=== PATIENT | male | born 1965 | race African-American/Black ===

== ENCOUNTER 2016-11-12 10:36 | Inpatient (IN) | payer OTHER ==
[2016-11-12 11:24] VITALS: BMI 27.3
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
[2016-11-12] MEDS ORDERED: P-EPHED 60MG/TRIPROLIDI 2.5MG TABLET PO PRN (15:10)
[2016-11-12] MEDS ORDERED: MAGNESIUM HYDROX 2400MG/30ML ORAL SUSPENSION 30 ML CUP PO PRN (15:10)
[2016-11-12] MEDS ORDERED: MAGNESIUM CITRATE 300 ML BOTTLE PO PRN (15:10)
[2016-11-12] MEDS ORDERED: MAG HYDROX/AL HYDROX/SIMETH 30 ML UNIT-DOSE CUP PO PRN (15:10)
[2016-11-12] MEDS ORDERED: MENTHOL/PHENOL 1 EACH UD MM PRN (15:10)
[2016-11-12] MEDS ORDERED: LOPERAMIDE HCL 2 MG CAPSULE PO PRN (15:10)
[2016-11-12] MEDS ORDERED: NICOTINE POLACRILEX 2 MG GUM BC PRN (15:10)
[2016-11-12] MEDS ORDERED: guaiFENesin/D-METHORPHAN HB 10 ML UNIT-DOSE CUPS PO PRN (15:10)
[2016-11-12] MEDS ORDERED: chlordiazePOXIDE HCL 25 MG CAPSULE PO PRN (15:10)
[2016-11-12] MEDS ORDERED: hydrOXYzine PAMOATE 50 MG CAPSULE (FP) PO PRN (15:10)
[2016-11-12] MEDS ORDERED: diphenhydrAMINE HCL 50 MG CAPSULE PO PRN (15:10)
[2016-11-12] MEDS ORDERED: chlordiazePOXIDE HCL 25 MG CAPSULE PO ONE (15:45)
[2016-11-12] MEDS: amLODIPine BESYLATE 10 MG TABLET (FP) PO SCH (16:42)
[2016-11-12] MEDS: BACITRACIN 0.9 GM PACKET TP SCH (16:42)
[2016-11-12] MEDS: chlordiazePOXIDE HCL 25 MG CAPSULE PO SCH ×2 (16:44→22:12)
[2016-11-12 18:33] LABS: URINE APPEARANCE CLEAR; URINE BILIRUBIN NEGATIVE (NEGATIVE); URINE BLOOD NEGATIVE (NEGATIVE); URINE COLOR STRAW; URINE GLUCOSE (UA) 1+ (NEGATIVE); URINE KETONE NEGATIVE (NEGATIVE); URINE LEUK ESTERASE NEGATIVE (NEGATIVE); URINE NITRITE NEGATIVE (NEGATIVE); URINE PROTEIN NEGATIVE (NEGATIVE); URINE UROBILINOGEN NEGATIVE mg/dL (0.2-1.0)
[2016-11-12] MEDS: THIAMINE HCL 100 MG TABLET (FP) PO SCH (22:12)
[2016-11-13] MEDS: chlordiazePOXIDE HCL 25 MG CAPSULE PO SCH ×4 (05:25→22:23)
[2016-11-13] MEDS: PRENATAL VITAMINS W/ FOLIC ACID TABLET (FP) PO SCH (10:14)
[2016-11-13] MEDS: amLODIPine BESYLATE 10 MG TABLET (FP) PO SCH (10:14)
[2016-11-13] MEDS: BACITRACIN 0.9 GM PACKET TP SCH (10:14)
[2016-11-13 10:15] LABS: MCH 30.1 pg (25.7-33.7); MCHC 33.3 g/dl (32.0-35.9); MEAN CELL VOLUME 90.4 fl (80-96); MEAN PLT VOLUME 10.2 fl (7.5-11.1); PLATELET COUNT 146 K/MM3 (134-434); RDW 13.6 % (11.9-15.9); WHITE BLOOD COUNT 4.5 K/mm3 (4.0-10.0)
--- NOTE | 2016-11-13 11:32 | PN ---
[facility] CIWA - CIWA Score Nausea/Vomitin-No Nausea/No Vomiting Muscle Tremors: 3 Anxiety: 5 Agitation: 3 Paroxysmal Sweats: 3 Orientation: 0-Oriented Tacttile Disturbances: 3-Moderate Itch/Numb/Burn Auditory Disturbances: 0-None Visual Disturbances: 2-Mild Sensitivity Headache: 0-None Present CIWA-Ar Total Score: 19 BHS Progress Note (SOAP) Subjective: Sweating, Tremors, Anxious. Objective: PT. A & O X 3, OBSERVED AMBULATING ON UNIT. NO ACUTE DISTRESS. 11/13/16 11:30 Vital Signs Temperature 96.3 F L 11/13/16 09:09 Pulse Rate 65 11/13/16 09:09 Respiratory Rate 18 11/13/16 09:09 Blood Pressure 154/102 11/13/16 09:09 O2 Sat by Pulse Oximetry (%) Laboratory Tests 11/12/16 11/13/16 11/13/16 15:58 07:00 07:00 WBC 4.5 RBC 4.56 Hgb 13.7 Hct 41.3 MCV 90.4 MCH 30.1 MCHC 33.3 RDW 13.6 Plt Count 146 MPV 10.2 Urine Color Straw Urine Appearance Clear Urine pH 7.0 Ur Specific [place] 1.020 Urine Protein Negative Urine Glucose (UA) 1+ H Urine Ketones Negative Urine Blood Negative Urine Nitrite Negative Urine Bilirubin Negative Urine Urobilinogen Negative Ur Leukocyte Esterase Negative RPR Titer Nonreactive LABS NOTED. RESULTS OF CMP AND SICKLE CELL SCREEN PENDING. 11/13/16 11:32 Assessment: 11/13/16 11:30 WITHDRAWAL SYMPTOMS. Plan: CONTINUE DETOX.
[2016-11-13 11:41] LABS: ALBUMIN 3.3 g/dl (3.4-5.0); ANION GAP 8 (8-16); BILIRUBIN,TOTAL 0.2 mg/dL (0.2-1.0); CALCIUM 8.6 mg/dL (8.5-10.1); CO2 30 mmol/L (21-32); CREATININE 1.1 mg/dL (0.7-1.3); GLUCOSE,RANDOM 117 mg/dL (74-106); SGOT/AST 25 U/L (15-37); SGPT/ALT 33 U/L (12-78); TOT PROT 6.3 g/dl (6.4-8.2)
[2016-11-13 11:42] LABS: ALK PHOS 117 U/L (45-117)
[2016-11-13 13:41] LABS: SICKLE CELL SCREEN NEGATIVE (NEGATIVE)
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
--- NOTE | 2016-11-13 18:31 | EKG ---
Test Reason : Blood Pressure : / mmHG Vent. Rate : 053 BPM Atrial Rate : 053 BPM P-R Int : 186 ms QRS Dur : 126 ms QT Int : 452 ms P-R-T Axes : 053 055 036 degrees QTc Int : 424 ms SINUS BRADYCARDIA WITH SINUS ARRHYTHMIA CRBBB ABNORMAL ECG NO PREVIOUS ECGS AVAILABLE REPEAT EKG IF CLINICALLY INDICATED Confirmed by AR MONTEMAYOR MD ([id number]) on 11/13/2016 6:30:44 PM Referred By: Confirmed By:AR MONTEMAYOR MD
[2016-11-13] MEDS: POTASSIUM CHLORIDE ORAL LIQUID 20 MEQ/15 ML PO SCH (22:22)
[2016-11-13] MEDS: THIAMINE HCL 100 MG TABLET (FP) PO SCH (22:23)
[2016-11-13] MEDS: QUEtiapine FUMARATE 100 MG TABLET (FP) PO SCH (22:50)
[2016-11-14] MEDS: chlordiazePOXIDE HCL 25 MG CAPSULE PO SCH ×2 (05:42→10:09)
[2016-11-14] MEDS: amLODIPine BESYLATE 10 MG TABLET (FP) PO SCH (10:09)
[2016-11-14] MEDS: BACITRACIN 0.9 GM PACKET TP SCH (10:09)
[2016-11-14] MEDS: POTASSIUM CHLORIDE ORAL LIQUID 20 MEQ/15 ML PO SCH ×2 (10:09→22:00)
[2016-11-14] MEDS: PRENATAL VITAMINS W/ FOLIC ACID TABLET (FP) PO SCH (10:09)
--- NOTE | 2016-11-14 11:47 | PN ---
[facility] CIWA - CIWA Score Nausea/Vomitin-No Nausea/No Vomiting Muscle Tremors: 4-Moderate,w/Arms Extend Anxiety: 3 Agitation: 4-Moderately Restless Paroxysmal Sweats: 1-Minimal Palms Moist Orientation: 0-Oriented Tacttile Disturbances: 3-Moderate Itch/Numb/Burn Auditory Disturbances: 0-None Visual Disturbances: 0-None Headache: 0-None Present CIWA-Ar Total Score: 15 S Progress Note (SOAP) Subjective: ANXIETY,IRRITABILITY, RESTLESS,AGITATIONS. Objective: 11/14/16 11:45 Vital Signs Temperature 96.4 F L 11/14/16 09:43 Pulse Rate 72 11/14/16 09:43 Respiratory Rate 18 11/14/16 09:43 Blood Pressure 105/104 11/14/16 09:43 O2 Sat by Pulse Oximetry (%) Laboratory Last Values WBC 4.5 K/mm3 (4.0-10.0) 11/13/16 07:00 RBC 4.56 M/mm3 (4.00-5.60) 11/13/16 07:00 Hgb 13.7 GM/dL (11.7-16.9) 11/13/16 07:00 Hct 41.3 % (35.4-49) 11/13/16 07:00 MCV 90.4 fl (80-96) 11/13/16 07:00 MCH 30.1 pg (25.7-33.7) 11/13/16 07:00 MCHC 33.3 g/dl (32.0-35.9) 11/13/16 07:00 RDW 13.6 % (11.9-15.9) 11/13/16 07:00 Plt Count 146 K/MM3 (134-434) 11/13/16 07:00 MPV 10.2 fl (7.5-11.1) 11/13/16 07:00 Sickle Cell Screen Negative (NEGATIVE) 11/13/16 07:00 Sodium 141 mmol/L (136-145) 11/13/16 07:00 Potassium 3.4 mmol/L (3.5-5.1) L 11/13/16 07:00 Chloride 103 mmol/L (98-107) 11/13/16 07:00 Carbon Dioxide 30 mmol/L (21-32) D 11/13/16 07:00 Anion Gap 8 (8-16) 11/13/16 07:00 BUN 15 mg/dL (7-18) 11/13/16 07:00 Creatinine 1.1 mg/dL (0.7-1.3) 11/13/16 07:00 Creat Clearance w eGFR > 60 (>60) 11/13/16 07:00 Random Glucose 117 mg/dL (74-106) H 11/13/16 07:00 Calcium 8.6 mg/dL (8.5-10.1) 11/13/16 07:00 Total Bilirubin 0.2 mg/dL (0.2-1.0) D 11/13/16 07:00 AST 25 U/L (15-37) 11/13/16 07:00 ALT 33 U/L (12-78) D 11/13/16 07:00 Alkaline Phosphatase 117 U/L (45-117) 11/13/16 07:00 Total Protein 6.3 g/dl (6.4-8.2) L 11/13/16 07:00 Albumin 3.3 g/dl (3.4-5.0) L 11/13/16 07:00 Urine Color Straw 11/12/16 15:58 Urine Appearance Clear 11/12/16 15:58 Urine pH 7.0 (5.0-8.0) 11/12/16 15:58 Ur Specific [place] 1.020 (1.005-1.025) 11/12/16 15:58 Urine Protein Negative (NEGATIVE) 11/12/16 15:58 Urine Glucose (UA) 1+ (NEGATIVE) H 11/12/16 15:58 Urine Ketones Negative (NEGATIVE) 11/12/16 15:58 Urine Blood Negative (NEGATIVE) 11/12/16 15:58 Urine Nitrite Negative (NEGATIVE) 11/12/16 15:58 Urine Bilirubin Negative (NEGATIVE) 11/12/16 15:58 Urine Urobilinogen Negative mg/dL (0.2-1.0) 11/12/16 15:58 Ur Leukocyte Esterase Negative (NEGATIVE) 11/12/16 15:58 RPR Titer Nonreactive (NONREACTIVE) 11/13/16 07:00 K+ =3.4 Assessment: 11/14/16 11:45 WITHDRAWAL SX BORDERLINE HYPOKALEMIA Plan: CONTINUE DETOX ON [facility].
[2016-11-14] MEDS: chlordiazePOXIDE 5 MG CAPSULE PO SCH ×2 (16:58→22:00)
[2016-11-14] MEDS: THIAMINE HCL 100 MG TABLET (FP) PO SCH (22:00)
[2016-11-14] MEDS ORDERED: QUEtiapine FUMARATE 100 MG TABLET (FP) PO SCH (22:00)
[2016-11-14] MEDS: QUEtiapine FUMARATE 100 MG TABLET (FP) PO SCH (22:00)
[2016-11-15] MEDS: chlordiazePOXIDE 5 MG CAPSULE PO SCH ×2 (06:25→10:15)
[2016-11-15] MEDS: BACITRACIN 0.9 GM PACKET TP SCH (10:14)
[2016-11-15] MEDS: POTASSIUM CHLORIDE ORAL LIQUID 20 MEQ/15 ML PO SCH (10:15)
[2016-11-15] MEDS: amLODIPine BESYLATE 10 MG TABLET (FP) PO SCH (10:15)
[2016-11-15] MEDS: PRENATAL VITAMINS W/ FOLIC ACID TABLET (FP) PO SCH (10:15)
--- NOTE | 2016-11-15 12:21 | PN ---
BHS Progress Note (SOAP) Subjective: Anxious, H/A, Interrupted Seep, Sweating. Objective: PT. A & O X 2 (DISORIENTED ABOUT DAY / DATE). PT. OBSERVED AMBULATING ON UNIT. NO ACUTE DISTRESS. 11/15/16 12:19 Vital Signs Temperature 96.2 F L 11/15/16 09:45 Pulse Rate 75 11/15/16 09:45 Respiratory Rate 18 11/15/16 09:45 Blood Pressure 139/98 11/15/16 09:45 O2 Sat by Pulse Oximetry (%) Laboratory Tests 11/12/16 11/13/16 11/13/16 15:58 07:00 07:00 WBC 4.5 RBC 4.56 Hgb 13.7 Hct 41.3 MCV 90.4 MCH 30.1 MCHC 33.3 RDW 13.6 Plt Count 146 MPV 10.2 Sickle Cell Screen Negative Sodium 141 Potassium 3.4 L Chloride 103 Carbon Dioxide 30 D Anion Gap 8 BUN 15 Creatinine 1.1 Creat Clearance w eGFR > 60 Random Glucose 117 H Calcium 8.6 Total Bilirubin 0.2 D AST 25 ALT 33 D Alkaline Phosphatase 117 Total Protein 6.3 L Albumin 3.3 L Urine Color Straw Urine Appearance Clear Urine pH 7.0 Ur Specific [place] 1.020 Urine Protein Negative Urine Glucose (UA) 1+ H Urine Ketones Negative Urine Blood Negative Urine Nitrite Negative Urine Bilirubin Negative Urine Urobilinogen Negative Ur Leukocyte Esterase Negative RPR Titer 11/13/16 07:00 WBC RBC Hgb Hct MCV MCH MCHC RDW Plt Count MPV Sickle Cell Screen Sodium Potassium Chloride Carbon Dioxide Anion Gap BUN Creatinine Creat Clearance w eGFR Random Glucose Calcium Total Bilirubin AST ALT Alkaline Phosphatase Total Protein Albumin Urine Color Urine Appearance Urine pH Ur Specific [place] Urine Protein Urine Glucose (UA) Urine Ketones Urine Blood Urine Nitrite Urine Bilirubin Urine Urobilinogen Ur Leukocyte Esterase RPR Titer Nonreactive LABS NOTED. Assessment: 11/15/16 12:19 WITHDRAWAL SYMPTOMS. Plan: CONTINUE DETOX.
--- NOTE | 2016-11-15 13:03 | PN ---
BHS Progress Note Note: Clonidine, 0.1 mg PO X 1 ordered for elevated BP and for Detox symptoms. Stacia Zavala, [employer]
[2016-11-15] MEDS ORDERED: cloNIDine HCL 0.1 MG TABLET PO ONE (13:30)
[2016-11-15] MEDS: chlordiazePOXIDE HCL 10 MG CAPSULE PO SCH ×2 (18:15→22:43)
[2016-11-15] MEDS: THIAMINE HCL 100 MG TABLET (FP) PO SCH (22:43)
[2016-11-15] MEDS: QUEtiapine FUMARATE 100 MG TABLET (FP) PO SCH (22:43)
[2016-11-16] MEDS: chlordiazePOXIDE HCL 10 MG CAPSULE PO SCH (06:07)
[2016-11-16 11:09] VITALS: BP 155/98; PULSE 84; TEMP 97.6
--- NOTE | 2016-11-16 13:50 | DS ---
[facility] Detox Discharge Summary Admission Date: 11/12/16 Discharge Date: 11/16/16 - History Present History: Alcohol Dependence, Cocaine Dependence, Pcp Dependence Additional Comments: PATIENT GOING HOME, DECLINES AFTERCARE REFERRAL AT THIS TIME. PATIENT ADVISED TO CONSIDER LOCAL 12-STEP / AA/ NA OUTPATIENT SUPPORT GROUPS FOR FOLLOW-UP AFTERCARE. PATIENT WAS DISCHARGED FROM DETOX UNIT IN STABLE MEDICAL CONDITION. Pertinent Past History: HTN, Injury to Big toe of Left Foot, Depression, Bipolar Disorder, Insomnia. - Physical Exam Results Vital Signs: Vital Signs Temperature 97.6 F 11/16/16 11:08 Pulse Rate 84 11/16/16 11:08 Respiratory Rate 20 11/16/16 11:08 Blood Pressure 155/98 11/16/16 11:08 O2 Sat by Pulse Oximetry (%) Pertinent Admission Physical Exam Findings: WITHDRAWAL SYMPTOMS. Laboratory Tests 11/12/16 11/13/16 11/13/16 15:58 07:00 07:00 WBC 4.5 RBC 4.56 Hgb 13.7 Hct 41.3 MCV 90.4 MCH 30.1 MCHC 33.3 RDW 13.6 Plt Count 146 MPV 10.2 Sickle Cell Screen Negative Sodium 141 Potassium 3.4 L Chloride 103 Carbon Dioxide 30 D Anion Gap 8 BUN 15 Creatinine 1.1 Creat Clearance w eGFR > 60 Random Glucose 117 H Calcium 8.6 Total Bilirubin 0.2 D AST 25 ALT 33 D Alkaline Phosphatase 117 Total Protein 6.3 L Albumin 3.3 L Urine Color Straw Urine Appearance Clear Urine pH 7.0 Ur Specific [place] 1.020 Urine Protein Negative Urine Glucose (UA) 1+ H Urine Ketones Negative Urine Blood Negative Urine Nitrite Negative Urine Bilirubin Negative Urine Urobilinogen Negative Ur Leukocyte Esterase Negative RPR Titer 11/13/16 07:00 WBC RBC Hgb Hct MCV MCH MCHC RDW Plt Count MPV Sickle Cell Screen Sodium Potassium Chloride Carbon Dioxide Anion Gap BUN Creatinine Creat Clearance w eGFR Random Glucose Calcium Total Bilirubin AST ALT Alkaline Phosphatase Total Protein Albumin Urine Color Urine Appearance Urine pH Ur Specific [place] Urine Protein Urine Glucose (UA) Urine Ketones Urine Blood Urine Nitrite Urine Bilirubin Urine Urobilinogen Ur Leukocyte Esterase RPR Titer Nonreactive LABS NOTED. - Treatment Hospital Course: Detox Protocol Followed, Detoxed Safely, Responded well, Discharged Condition Good Patient has Accepted a Rehab Referral to: [facility]. ADVISED TO CONSIDER 12- STEP/NA/AA SUPPORT GROUP FOR AFTERCARE - Medication Discharge Medications: Ambulatory Orders Quetiapine Fumarate [Seroquel] 100 tab PO HS #30 tablet 11/25/15 Amlodipine Besylate [Norvasc -] 10 mg PO DAILY #30 tablet 11/16/16 - Diagnosis (1) Alcohol dependence with uncomplicated withdrawal Status: Acute (2) Hypertension Status: Chronic Qualifiers: Hypertension type: essential hypertension Qualified Code(s): I10 - Essential (primary) hypertension (3) Nicotine dependence Status: Chronic Qualifiers: Nicotine product type: cigarettes Substance use status: uncomplicated Qualified Code(s): F17.210 - Nicotine dependence, cigarettes, uncomplicated (4) PCP abuse Status: Acute (5) Injury of left great toe Status: Acute Qualifiers: Encounter type: sequela Qualified Code(s): S99.922S - Unspecified injury of left foot, sequela (6) History of depression Status: Chronic (7) History of bipolar disorder Status: Chronic (8) Cocaine dependence, uncomplicated Status: Acute (9) Drug-induced mood disorder Status: Acute (10) Insomnia Status: Acute Qualifiers: Insomnia type: unspecified Qualified Code(s): G47.00 - Insomnia, unspecified - AMA Did Patient Leave Against Medical Advice: No
== END 2016-11-16 11:12 | disposition home or self-care (01) | DRG 774 ==
LOC: YASAS 10:36 → Y3N 15:29
PROVIDERS: ADMIT Internal Medicine Addiction Medicine; ATTEND Internal Medicine Addiction Medicine
PROC: HZ2ZZZZ Detoxification Services for Substance Abuse Treatment (ICD-10-PCS; principal; 2016-11-12)
DX: F10.230 Alcohol dependence with withdrawal, uncomplicated (principal); F14.20 Cocaine dependence, uncomplicated; F16.10 Hallucinogen abuse, uncomplicated; F17.210 Nicotine dependence, cigarettes, uncomplicated; F19.24 Other psychoactive substance dependence with psychoactive substance-induced mood disorder; F31.9 Bipolar disorder, unspecified; E87.6 Hypokalemia; G47.00 Insomnia, unspecified; I10 Essential (primary) hypertension; Z88.6 Allergy status to analgesic agent; S99.922S Unspecified injury of left foot, sequela; X58.XXXS Exposure to other specified factors, sequela
CPT/HCPCS: 36415; 71010-TC; 80053; 81003; 85027; 85660; 86593; 93005; 93010

== ENCOUNTER 2017-04-05 18:18 | Inpatient (IN) | payer OTHER ==
[2017-04-05 19:26] VITALS: BMI 26.9
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
[2017-04-05] MEDS ORDERED: MAG HYDROX/AL HYDROX/SIMETH 30 ML UNIT-DOSE CUP PO PRN (20:44)
[2017-04-05] MEDS ORDERED: hydrOXYzine PAMOATE 50 MG CAPSULE (FP) PO PRN (20:44)
[2017-04-05] MEDS ORDERED: P-EPHED 60MG/TRIPROLIDI 2.5MG TABLET PO PRN (20:44)
[2017-04-05] MEDS ORDERED: MAGNESIUM CITRATE 300 ML BOTTLE PO PRN (20:44)
[2017-04-05] MEDS ORDERED: MENTHOL/PHENOL 1 EACH UD MM PRN (20:44)
[2017-04-05] MEDS ORDERED: guaiFENesin/D-METHORPHAN HB 10 ML UNIT-DOSE CUPS PO PRN (20:44)
[2017-04-05] MEDS ORDERED: MAGNESIUM HYDROX 2400MG/30ML ORAL SUSPENSION 30 ML CUP PO PRN (20:44)
[2017-04-05] MEDS ORDERED: chlordiazePOXIDE HCL 25 MG CAPSULE PO PRN (20:44)
[2017-04-05] MEDS ORDERED: LOPERAMIDE HCL 2 MG CAPSULE PO PRN (20:44)
[2017-04-05] MEDS ORDERED: chlordiazePOXIDE HCL 25 MG CAPSULE PO ONE (21:30)
[2017-04-05] MEDS: SILVER SULFADIAZINE 1% TOP CREAM 50 GM JAR TP SCH (23:07)
[2017-04-05] MEDS: THIAMINE HCL 100 MG TABLET (FP) PO SCH (23:08)
[2017-04-05] MEDS: chlordiazePOXIDE HCL 25 MG CAPSULE PO SCH (23:09)
[2017-04-05 23:23] LABS: URINE APPEARANCE CLEAR; URINE BILIRUBIN NEGATIVE (NEGATIVE); URINE BLOOD NEGATIVE (NEGATIVE); URINE COLOR YELLOW; URINE GLUCOSE (UA) NEGATIVE (NEGATIVE); URINE KETONE NEGATIVE (NEGATIVE); URINE LEUK ESTERASE NEGATIVE (NEGATIVE); URINE NITRITE NEGATIVE (NEGATIVE)
[2017-04-05 23:24] LABS: URINE PROTEIN 1+ (NEGATIVE)
[2017-04-05 23:43] LABS: EPI CELLS RARE /HPF (FEW); URINE BACTERIA RARE /hpf (NONE SEEN); URINE MUCUS MANY
[2017-04-06] MEDS: chlordiazePOXIDE HCL 25 MG CAPSULE PO SCH ×4 (06:05→22:46)
[2017-04-06 10:03] LABS: HEMATOCRIT 38.7 % (35.4-49); HEMOGLOBIN 12.5 GM/dL (11.7-16.9); MCH 29.7 pg (25.7-33.7); MCHC 32.3 g/dl (32.0-35.9); MEAN PLT VOLUME 9.1 fl (7.5-11.1); PLATELET COUNT 170 K/MM3 (134-434); RBC 4.21 M/mm3 (4.00-5.60); RDW 15.4 % (11.9-15.9); WHITE BLOOD COUNT 5.6 K/mm3 (4.0-10.0)
[2017-04-06 10:11] LABS: CHLORIDE 107 mmol/L (98-107); POTASSIUM 3.5 mmol/L (3.5-5.1); SODIUM 141 mmol/L (136-145)
[2017-04-06 10:17] LABS: ALK PHOS 107 U/L (45-117); ANION GAP 8 (8-16); BILIRUBIN,TOTAL 0.4 mg/dL (0.2-1.0); BLOOD UREA NITROGEN 15 mg/dL (7-18); CO2 26 mmol/L (21-32); CREATININE 1.2 mg/dL (0.7-1.3); GLUCOSE,RANDOM 92 mg/dL (74-106); SGOT/AST 23 U/L (15-37); SGPT/ALT 22 U/L (12-78)
[2017-04-06] MEDS: PRENATAL VITAMINS W/ FOLIC ACID TABLET (FP) PO SCH (10:30)
[2017-04-06] MEDS: amLODIPine BESYLATE 10 MG TABLET (FP) PO SCH (10:30)
[2017-04-06] MEDS: SILVER SULFADIAZINE 1% TOP CREAM 50 GM JAR TP SCH ×2 (10:48→22:47)
[2017-04-06] MEDS ORDERED: ARTIFICIAL TEARS (POLYVINYL ALCOHOL 1.4%) OPTH DROPS OD PRN (11:20)
--- NOTE | 2017-04-06 12:26 | EKG ---
Test Reason : Blood Pressure : / mmHG Vent. Rate : 087 BPM Atrial Rate : 087 BPM P-R Int : 152 ms QRS Dur : 132 ms QT Int : 388 ms P-R-T Axes : 058 058 040 degrees QTc Int : 466 ms NORMAL SINUS RHYTHM RIGHT BUNDLE BRANCH BLOCK ABNORMAL ECG Confirmed by MD YENIFER, OMAR ([id number]) on 04/06/2017 12:26:00 PM Referred By: Confirmed By:OMAR STREET MD
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
[2017-04-06] MEDS: NAPHAZOLINE/PHENIRAMINE OPHTHALMIC 15 ML BOTTLE OD SCH ×3 (15:11→22:47)
[2017-04-06] MEDS ORDERED: QUEtiapine FUMARATE 100 MG TABLET (FP) PO SCH (22:00)
[2017-04-06] MEDS: THIAMINE HCL 100 MG TABLET (FP) PO SCH (22:46)
[2017-04-06 23:05] VITALS: TEMP 97.2
[2017-04-07] MEDS: chlordiazePOXIDE HCL 25 MG CAPSULE PO SCH ×2 (05:41→10:45)
[2017-04-07 09:56] VITALS: BP 151/98; PULSE 62
[2017-04-07] MEDS: PRENATAL VITAMINS W/ FOLIC ACID TABLET (FP) PO SCH (10:45)
[2017-04-07] MEDS: SILVER SULFADIAZINE 1% TOP CREAM 50 GM JAR TP SCH (10:45)
[2017-04-07] MEDS: amLODIPine BESYLATE 10 MG TABLET (FP) PO SCH (10:45)
[2017-04-07] MEDS: NAPHAZOLINE/PHENIRAMINE OPHTHALMIC 15 ML BOTTLE OD SCH (10:46)
--- NOTE | 2017-04-07 14:34 | DS ---
[facility] Detox Discharge Summary Admission Date: 04/05/17 Discharge Date: 04/07/17 - History Present History: Alcohol Dependence, Cocaine Dependence, Pcp Dependence Additional Comments: UA shows 1 + protein: encouraged to drink lots of water, repeat UA Pertinent Past History: HTN PPD Positive - Physical Exam Results Vital Signs: Vital Signs Temperature 97.2 F L 04/07/17 09:56 Pulse Rate 62 04/07/17 09:56 Respiratory Rate 16 04/07/17 09:56 Blood Pressure 151/98 04/07/17 09:56 O2 Sat by Pulse Oximetry (%) Pertinent Admission Physical Exam Findings: Withdrawal symptoms Laboratory Tests 04/05/17 04/06/17 04/06/17 23:13 07:40 07:40 WBC 5.6 RBC 4.21 Hgb 12.5 Hct 38.7 MCV 92.0 MCH 29.7 MCHC 32.3 RDW 15.4 Plt Count 170 D MPV 9.1 Sodium 141 Potassium 3.5 Chloride 107 Carbon Dioxide 26 Anion Gap 8 BUN 15 D Creatinine 1.2 Creat Clearance w eGFR > 60 Random Glucose 92 Calcium 8.0 L Total Bilirubin 0.4 AST 23 ALT 22 Alkaline Phosphatase 107 Total Protein 6.0 L Albumin 3.0 L Urine Color Yellow Urine Appearance Clear Urine pH 5.0 Ur Specific [place] 1.028 Urine Protein 1+ H Urine Glucose (UA) Negative Urine Ketones Negative Urine Blood Negative Urine Nitrite Negative Urine Bilirubin Negative Urine Urobilinogen 2.0 Ur Leukocyte Esterase Negative Urine WBC (Auto) 1 Urine RBC (Auto) <1 Ur Epithelial Cells Rare Urine Bacteria Rare Urine Mucus Many RPR Titer 04/06/17 07:40 WBC RBC Hgb Hct MCV MCH MCHC RDW Plt Count MPV Sodium Potassium Chloride Carbon Dioxide Anion Gap BUN Creatinine Creat Clearance w eGFR Random Glucose Calcium Total Bilirubin AST ALT Alkaline Phosphatase Total Protein Albumin Urine Color Urine Appearance Urine pH Ur Specific [place] Urine Protein Urine Glucose (UA) Urine Ketones Urine Blood Urine Nitrite Urine Bilirubin Urine Urobilinogen Ur Leukocyte Esterase Urine WBC (Auto) Urine RBC (Auto) Ur Epithelial Cells Urine Bacteria Urine Mucus RPR Titer Nonreactive Labs noted: UA shows 1+ protein - Medication Discharge Medications: Ambulatory Orders Amlodipine Besylate [Norvasc -] 10 mg PO DAILY #30 tablet 11/16/16 Quetiapine Fumarate [Seroquel] 100 mg PO HS #30 tablet 01/12/17 Quetiapine Fumarate [Seroquel] 100 tab PO HS #30 tablet 01/13/17 Quetiapine Fumarate [Seroquel] 100 mg PO HS #30 tablet 04/06/17 - Diagnosis (1) Cocaine dependence Status: Chronic (2) Nicotine dependence Status: Chronic Qualifiers: Nicotine product type: cigarettes Substance use status: in withdrawal Qualified Code(s): F17.213 - Nicotine dependence, cigarettes, with withdrawal (3) Phencyclidine dependence Status: Acute (4) Substance induced mood disorder Status: Acute (5) Alcohol dependence with uncomplicated withdrawal Status: Acute (6) Essential (primary) hypertension Status: Chronic (7) History of bipolar disorder Status: Chronic (8) PPD positive, treated Status: Chronic (9) Proteinuria Status: Acute - AMA Did Patient Leave Against Medical Advice: Yes (F/U with PCP within 3 days, call 911 stat if feels sick)
[2017-04-07] MEDS ORDERED: chlordiazePOXIDE 5 MG CAPSULE PO SCH (23:00)
[2017-04-08] MEDS ORDERED: chlordiazePOXIDE HCL 10 MG CAPSULE PO SCH (23:00)
== END 2017-04-07 13:00 | disposition left against medical advice (07) | DRG 770 ==
LOC: YASAS 18:18 → Y3N 21:29
PROVIDERS: ADMIT Internal Medicine; ATTEND Internal Medicine
PROC: HZ2ZZZZ Detoxification Services for Substance Abuse Treatment (ICD-10-PCS; principal; 2017-04-03)
DX: F10.230 Alcohol dependence with withdrawal, uncomplicated (principal); F16.20 Hallucinogen dependence, uncomplicated; F14.20 Cocaine dependence, uncomplicated; F12.20 Cannabis dependence, uncomplicated; F17.213 Nicotine dependence, cigarettes, with withdrawal; F19.24 Other psychoactive substance dependence with psychoactive substance-induced mood disorder; F31.9 Bipolar disorder, unspecified; I10 Essential (primary) hypertension; R76.11 Nonspecific reaction to tuberculin skin test without active tuberculosis; R80.9 Proteinuria, unspecified; H57.11 Ocular pain, right eye; Z88.6 Allergy status to analgesic agent; Z91.14 Patient's other noncompliance with medication regimen; Z91.5 Personal history of self-harm
CPT/HCPCS: 36415; 80053; 81003; 81015; 85027; 86593; 93005; 93010

== ENCOUNTER 2017-04-21 08:30 | Inpatient (IN) | payer OTHER ==
[2017-04-21 08:56] VITALS: BMI 26.9
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
[2017-04-21] MEDS ORDERED: LOPERAMIDE HCL 2 MG CAPSULE PO PRN (09:41)
[2017-04-21] MEDS ORDERED: MAGNESIUM CITRATE 300 ML BOTTLE PO PRN (09:41)
[2017-04-21] MEDS ORDERED: chlordiazePOXIDE HCL 25 MG CAPSULE PO ONE (09:41)
[2017-04-21] MEDS ORDERED: MAG HYDROX/AL HYDROX/SIMETH 30 ML UNIT-DOSE CUP PO PRN (09:41)
[2017-04-21] MEDS ORDERED: ACETAMINOPHEN 325 MG TABLET (FP) PO PRN (09:41)
[2017-04-21] MEDS ORDERED: guaiFENesin/D-METHORPHAN HB 10 ML UNIT-DOSE CUPS PO PRN (09:41)
[2017-04-21] MEDS ORDERED: MENTHOL/PHENOL 1 EACH UD MM PRN (09:41)
[2017-04-21] MEDS ORDERED: MAGNESIUM HYDROX 2400MG/30ML ORAL SUSPENSION 30 ML CUP PO PRN (09:41)
[2017-04-21] MEDS ORDERED: hydrOXYzine PAMOATE 50 MG CAPSULE (FP) PO PRN (09:41)
[2017-04-21] MEDS ORDERED: P-EPHED 60MG/TRIPROLIDI 2.5MG TABLET PO PRN (09:41)
[2017-04-21] MEDS ORDERED: chlordiazePOXIDE HCL 25 MG CAPSULE PO PRN (09:41)
[2017-04-21] MEDS ORDERED: amLODIPine BESYLATE 10 MG TABLET (FP) PO ONE (10:30)
[2017-04-21] MEDS ORDERED: chlordiazePOXIDE HCL 25 MG CAPSULE ONE (11:59)
[2017-04-21] MEDS: PRENATAL VITAMINS W/ FOLIC ACID TABLET (FP) PO SCH (12:02)
[2017-04-21] MEDS: chlordiazePOXIDE HCL 25 MG CAPSULE PO SCH ×2 (17:05→22:10)
[2017-04-21 19:07] LABS: URINE APPEARANCE TURBID; URINE BILIRUBIN NEGATIVE (NEGATIVE); URINE BLOOD NEGATIVE (NEGATIVE); URINE GLUCOSE (UA) NEGATIVE (NEGATIVE); URINE KETONE TRACE (NEGATIVE); URINE LEUK ESTERASE NEGATIVE (NEGATIVE); URINE NITRITE NEGATIVE (NEGATIVE); URINE PROTEIN NEGATIVE (NEGATIVE); URINE UROBILINOGEN NEGATIVE mg/dL (0.2-1.0)
[2017-04-21 19:37] LABS: URINE COLOR YELLOW
[2017-04-21] MEDS: SILVER SULFADIAZINE 1% TOP CREAM 400 GM JAR TP SCH ×2 (22:09)
[2017-04-21] MEDS: THIAMINE HCL 100 MG TABLET (FP) PO SCH (22:09)
[2017-04-21] MEDS: MINERAL OIL/PETROLAT/WATER TOPICAL CREAM 113 GM JAR TP SCH (22:10)
[2017-04-22] MEDS: chlordiazePOXIDE HCL 25 MG CAPSULE PO SCH ×4 (05:15→22:16)
--- NOTE | 2017-04-22 07:39 | CONSULT ---
[facility] Psychiatric Consult - Data Date of interview: 04/22/17 Admission source: [facility] Identifying data: This is 51 years old, single, father of two, living with GF, unsmployed on SSI male with no psychiatric hospitalization history. history of Bipolar Disorder, intoxicated with: Cannabis, Nicotine, PCP, Benzodiazepins Substance Abuse History: - Smoking Cessation. Smoking history: Current every day smoker. Have you smoked in the past 12 months: Yes. Aproximately how many cigarettes per day: 8. Cigars Per Day: 0. Hx Chewing Tobacco Use: No. Initiated information on smoking cessation: Yes. 'Breaking Loose' booklet given : 04/21/17. - Substance & Tx. History. Hx Alcohol Use: Yes. Hx Substance Use : Yes. Substance Use Type: Alcohol, Cocaine. Hx Substance Use Treatment: Yes ( [facility] 04/05/17TO 04/07/17 NOT COMPLETED). - Substances Abused. Alcohol. Route: Oral. Frequency: Daily. Amount used: LIQUOR- 5 PINTS VODKA. Age of first use: 21. Date of Last Use: 04/20/17. Cocaine. Route: Inhalation. Frequency: Daily. Amount used: $50 WORTH. Age of first use: 21. Date of Last Use: 04/20/17. PCP. Route: Smoking. Frequency: 1-2 times per week. Amount used: 30$. Age of first use: 21. Date of Last Use: 04/20/17 Medical History: HTN, Knee injury histaory, R/L Kidneys injury history, Psychiatric History: Patioent reports hiostory of Bipolae Disorder, reports taking prior to admission: Seroquel 200mg po qhs. Trazodone 50mg po qhs Physical/Sexual Abuse/Trauma History: Denies Additional Comment: Seroquel 200mg po qhs. Trazodone 50mg po qhs Mental Status Exam - Mental Status Exam Alert and Oriented to: Person Cognitive Function: Fair Patient Appearance: Unkempt Mood: Sad Affect: Flat Patient Behavior: Sedated Speech Pattern: Delayed Voice Loudness: Mildly Soft/Quiet Thought Process: Circumstantial Thought Disorder: Being Controlled Hallucinations: Denies Suicidal Ideation: Denies Homicidal Ideation: Denies Insight/Judgement: Fair Sleep: Difficulty falling asleep Appetite: Fair Muscle strength/Tone: Mild Hypotonicity Gait/Station: Shuffling Additional Comments: Seroquel 200mg po qhs. Trazodone 50mg po qhs Psychiatric Findings - Problem List ([place] 1, 2,3) (1) Bipolar disorder Current Visit: Yes Status: Acute (2) Alcohol dependence with uncomplicated withdrawal Current Visit: No Status: Acute (3) Alcohol-induced mood disorder Current Visit: No Status: Acute (4) Alcohol-induced sleep disorder Current Visit: No Status: Acute (5) Cannabis dependence Current Visit: No Status: Acute (6) Cocaine dependence, uncomplicated Current Visit: No Status: Acute (7) [place]hu[place] dependence Current Visit: No Status: Acute (8) Phencyclidine dependence Current Visit: No Status: Acute (9) Substance induced mood disorder Current Visit: No Status: Acute (10) Substance-induced sleep disorder Current Visit: No Status: Acute (11) History of bipolar disorder Current Visit: No Status: Chronic - Initial Treatment Plan Initial Treatment Plan: Seroquel 200mg po qhs. Trazodone 50mg po qhs
[2017-04-22 10:03] LABS: HEMATOCRIT 37.4 % (35.4-49); HEMOGLOBIN 12.3 GM/dL (11.7-16.9); MCH 30.4 pg (25.7-33.7); MCHC 32.9 g/dl (32.0-35.9); MEAN CELL VOLUME 92.4 fl (80-96); MEAN PLT VOLUME 8.8 fl (7.5-11.1); PLATELET COUNT 188 K/MM3 (134-434); RBC 4.04 M/mm3 (4.00-5.60); WHITE BLOOD COUNT 4.5 K/mm3 (4.0-10.0)
[2017-04-22] MEDS: PRENATAL VITAMINS W/ FOLIC ACID TABLET (FP) PO SCH (10:13)
[2017-04-22] MEDS: SILVER SULFADIAZINE 1% TOP CREAM 400 GM JAR TP SCH ×2 (10:14→22:18)
[2017-04-22] MEDS: amLODIPine BESYLATE 10 MG TABLET (FP) PO SCH (10:14)
[2017-04-22 10:20] LABS: CHLORIDE 108 mmol/L (98-107); POTASSIUM 3.6 mmol/L (3.5-5.1); SODIUM 141 mmol/L (136-145)
[2017-04-22 10:38] LABS: ALK PHOS 111 U/L (45-117); ANION GAP 4 (8-16); BILIRUBIN,TOTAL 0.3 mg/dL (0.2-1.0); BLOOD UREA NITROGEN 13 mg/dL (7-18); CALCIUM 7.8 mg/dL (8.5-10.1); CO2 29 mmol/L (21-32); GLUCOSE,RANDOM 107 mg/dL (74-106); SGOT/AST 26 U/L (15-37); SGPT/ALT 25 U/L (12-78); TOT PROT 5.8 g/dl (6.4-8.2)
--- NOTE | 2017-04-22 11:16 | PN ---
[facility] CIWA - CIWA Score Nausea/Vomitin-Mild Nausea/No Vomiting Muscle Tremors: 4-Moderate,w/Arms Extend Anxiety: 4-Mod. Anxious/Guarded Agitation: 4-Moderately Restless Paroxysmal Sweats: 1-Minimal Palms Moist Orientation: 1-Uncertain about Date Tacttile Disturbances: 1-Very Mild Itch/Numbness Auditory Disturbances: 0-None Visual Disturbances: 0-None Headache: 1-Very Mild CIWA-Ar Total Score: 17 BHS Progress Note (SOAP) Subjective: sweat tremor GI upset restlessness irritable Objective: 04/22/17 11:14 Vital Signs Temperature 98 F 04/22/17 10:45 Pulse Rate 68 04/22/17 10:45 Respiratory Rate 18 04/22/17 10:45 Blood Pressure 145/88 04/22/17 10:45 O2 Sat by Pulse Oximetry (%) Laboratory Last Values WBC 4.5 K/mm3 (4.0-10.0) 04/22/17 07:00 RBC 4.04 M/mm3 (4.00-5.60) 04/22/17 07:00 Hgb 12.3 GM/dL (11.7-16.9) 04/22/17 07:00 Hct 37.4 % (35.4-49) 04/22/17 07:00 MCV 92.4 fl (80-96) 04/22/17 07:00 MCH 30.4 pg (25.7-33.7) 04/22/17 07:00 MCHC 32.9 g/dl (32.0-35.9) 04/22/17 07:00 RDW 16.0 % (11.9-15.9) H 04/22/17 07:00 Plt Count 188 K/MM3 (134-434) 04/22/17 07:00 MPV 8.8 fl (7.5-11.1) 04/22/17 07:00 Sodium 141 mmol/L (136-145) 04/22/17 07:00 Potassium 3.6 mmol/L (3.5-5.1) 04/22/17 07:00 Chloride 108 mmol/L (98-107) H 04/22/17 07:00 Carbon Dioxide 29 mmol/L (21-32) 04/22/17 07:00 Anion Gap 4 (8-16) L 04/22/17 07:00 BUN 13 mg/dL (7-18) 04/22/17 07:00 Creatinine 1.0 mg/dL (0.7-1.3) 04/22/17 07:00 Creat Clearance w eGFR > 60 (>60) 04/22/17 07:00 Random Glucose 107 mg/dL (74-106) H 04/22/17 07:00 Calcium 7.8 mg/dL (8.5-10.1) L 04/22/17 07:00 Total Bilirubin 0.3 mg/dL (0.2-1.0) D 04/22/17 07:00 AST 26 U/L (15-37) 04/22/17 07:00 ALT 25 U/L (12-78) 04/22/17 07:00 Alkaline Phosphatase 111 U/L (45-117) 04/22/17 07:00 Total Protein 5.8 g/dl (6.4-8.2) L 04/22/17 07:00 Albumin 3.0 g/dl (3.4-5.0) L 04/22/17 07:00 Urine Color Yellow 04/21/17 12:44 Urine Appearance Turbid 04/21/17 12:44 Urine pH 5.0 (5.0-8.0) 04/21/17 12:44 Ur Specific [place] 1.036 (1.001-1.035) H 04/21/17 12:44 Urine Protein Negative (NEGATIVE) 04/21/17 12:44 Urine Glucose (UA) Negative (NEGATIVE) 04/21/17 12:44 Urine Ketones Trace (NEGATIVE) H 04/21/17 12:44 Urine Blood Negative (NEGATIVE) 04/21/17 12:44 Urine Nitrite Negative (NEGATIVE) 04/21/17 12:44 Urine Bilirubin Negative (NEGATIVE) 04/21/17 12:44 Urine Urobilinogen Negative mg/dL (0.2-1.0) 04/21/17 12:44 Ur Leukocyte Esterase Negative (NEGATIVE) 04/21/17 12:44 lab noted Assessment: 04/22/17 11:15 withdrawal sx Plan: continue detox
[2017-04-22] MEDS ORDERED: traZODone HCL 50 MG TABLET (FP) PO SCH (22:00)
[2017-04-22] MEDS ORDERED: QUEtiapine FUMARATE 200 MG TABLET PO SCH (22:00)
[2017-04-22] MEDS: THIAMINE HCL 100 MG TABLET (FP) PO SCH (22:16)
[2017-04-22] MEDS: MINERAL OIL/PETROLAT/WATER TOPICAL CREAM 113 GM JAR TP SCH (22:17)
--- NOTE | 2017-04-22 23:33 | EKG ---
Test Reason : Blood Pressure : / mmHG Vent. Rate : 063 BPM Atrial Rate : 063 BPM P-R Int : 158 ms QRS Dur : 150 ms QT Int : 442 ms P-R-T Axes : 054 054 038 degrees QTc Int : 452 ms NORMAL SINUS RHYTHM RIGHT BUNDLE BRANCH BLOCK ABNORMAL ECG WHEN COMPARED WITH ECG OF 21-APR-2017 12:07, NO SIGNIFICANT CHANGE WAS FOUND Confirmed by JAYA DAVE MD ([id number]) on 04/22/2017 11:32:46 PM Referred By: Abe Quijano Confirmed By:JAYA DAVE MD
--- NOTE | 2017-04-22 23:34 | EKG ---
Test Reason : Blood Pressure : / mmHG Vent. Rate : 058 BPM Atrial Rate : 058 BPM P-R Int : 152 ms QRS Dur : 112 ms QT Int : 452 ms P-R-T Axes : 048 031 036 degrees QTc Int : 443 ms SINUS BRADYCARDIA RIGHT BUNDLE BRANCH BLOCK WHEN COMPARED WITH ECG OF 05-APR-2017 22:07, VENT. RATE HAS DECREASED BY 29 BPM Confirmed by JAYA DAVE MD ([id number]) on 04/22/2017 11:34:20 PM Referred By: Abe Quijano Confirmed By:JAYA DAVE MD
[2017-04-23] MEDS: chlordiazePOXIDE HCL 25 MG CAPSULE PO SCH ×2 (05:20→12:02)
--- NOTE | 2017-04-23 09:54 | PN ---
S CIWA - CIWA Score Nausea/Vomitin Muscle Tremors: 3 Anxiety: 3 Agitation: 2 Paroxysmal Sweats: 1-Minimal Palms Moist Orientation: 0-Oriented Tacttile Disturbances: 1-Very Mild Itch/Numbness Auditory Disturbances: 1-Very Mild Visual Disturbances: 0-None Headache: 2-Mild CIWA-Ar Total Score: 16 BHS Progress Note (SOAP) Subjective: ALERT,IRRITABLE,ANXIOUS,INTERRUPTED SLEEP,TREMOR Objective: 04/23/17 09:52 Vital Signs Temperature 97.3 F L 04/23/17 06:17 Pulse Rate 71 04/23/17 06:17 Respiratory Rate 18 04/23/17 06:17 Blood Pressure 136/73 04/23/17 06:17 O2 Sat by Pulse Oximetry (%) Laboratory Last Values WBC 4.5 K/mm3 (4.0-10.0) 04/22/17 07:00 RBC 4.04 M/mm3 (4.00-5.60) 04/22/17 07:00 Hgb 12.3 GM/dL (11.7-16.9) 04/22/17 07:00 Hct 37.4 % (35.4-49) 04/22/17 07:00 MCV 92.4 fl (80-96) 04/22/17 07:00 MCH 30.4 pg (25.7-33.7) 04/22/17 07:00 MCHC 32.9 g/dl (32.0-35.9) 04/22/17 07:00 RDW 16.0 % (11.9-15.9) H 04/22/17 07:00 Plt Count 188 K/MM3 (134-434) 04/22/17 07:00 MPV 8.8 fl (7.5-11.1) 04/22/17 07:00 Sodium 141 mmol/L (136-145) 04/22/17 07:00 Potassium 3.6 mmol/L (3.5-5.1) 04/22/17 07:00 Chloride 108 mmol/L (98-107) H 04/22/17 07:00 Carbon Dioxide 29 mmol/L (21-32) 04/22/17 07:00 Anion Gap 4 (8-16) L 04/22/17 07:00 BUN 13 mg/dL (7-18) 04/22/17 07:00 Creatinine 1.0 mg/dL (0.7-1.3) 04/22/17 07:00 Creat Clearance w eGFR > 60 (>60) 04/22/17 07:00 Random Glucose 107 mg/dL (74-106) H 04/22/17 07:00 Calcium 7.8 mg/dL (8.5-10.1) L 04/22/17 07:00 Total Bilirubin 0.3 mg/dL (0.2-1.0) D 04/22/17 07:00 AST 26 U/L (15-37) 04/22/17 07:00 ALT 25 U/L (12-78) 04/22/17 07:00 Alkaline Phosphatase 111 U/L (45-117) 04/22/17 07:00 Total Protein 5.8 g/dl (6.4-8.2) L 04/22/17 07:00 Albumin 3.0 g/dl (3.4-5.0) L 04/22/17 07:00 Urine Color Yellow 04/21/17 12:44 Urine Appearance Turbid 04/21/17 12:44 Urine pH 5.0 (5.0-8.0) 04/21/17 12:44 Ur Specific [place] 1.036 (1.001-1.035) H 04/21/17 12:44 Urine Protein Negative (NEGATIVE) 04/21/17 12:44 Urine Glucose (UA) Negative (NEGATIVE) 04/21/17 12:44 Urine Ketones Trace (NEGATIVE) H 04/21/17 12:44 Urine Blood Negative (NEGATIVE) 04/21/17 12:44 Urine Nitrite Negative (NEGATIVE) 04/21/17 12:44 Urine Bilirubin Negative (NEGATIVE) 04/21/17 12:44 Urine Urobilinogen Negative mg/dL (0.2-1.0) 04/21/17 12:44 Ur Leukocyte Esterase Negative (NEGATIVE) 04/21/17 12:44 RPR Titer Nonreactive (NONREACTIVE) 04/22/17 07:00 HIV 1&2 Antibody Screen Negative 04/22/17 07:00 HIV P24 Antigen Negative 04/22/17 07:00 Assessment: 04/23/17 09:53 WITHDRAWAL SYMPTOM Plan: CONTINUE DETOX
[2017-04-23 10:24] VITALS: BP 151/97; TEMP 97.7
[2017-04-23] MEDS: PRENATAL VITAMINS W/ FOLIC ACID TABLET (FP) PO SCH (12:02)
[2017-04-23] MEDS: amLODIPine BESYLATE 10 MG TABLET (FP) PO SCH (12:02)
[2017-04-23 15:47] VITALS: PULSE 73
--- NOTE | 2017-04-23 15:55 | PN ---
S Progress Note Note: PATIENT DID NOT WANT TO COMPLETE TREATMENT,SEEN BY COUNSELOR,SIGNED RELEASE AMA, DID NOT WANT TO WAIT
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
[2017-04-23] MEDS ORDERED: chlordiazePOXIDE 5 MG CAPSULE PO SCH (17:00)
[2017-04-24] MEDS ORDERED: chlordiazePOXIDE HCL 10 MG CAPSULE PO SCH (17:00)
== END 2017-04-23 16:07 | disposition left against medical advice (07) | DRG 770 ==
LOC: YASAS 08:30 → Y6N 11:04
PROVIDERS: ADMIT Internal Medicine; ATTEND Internal Medicine
PROC: HZ2ZZZZ Detoxification Services for Substance Abuse Treatment (ICD-10-PCS; principal; 2017-04-21)
DX: F10.230 Alcohol dependence with withdrawal, uncomplicated (principal); F10.24 Alcohol dependence with alcohol-induced mood disorder; F10.282 Alcohol dependence with alcohol-induced sleep disorder; F14.20 Cocaine dependence, uncomplicated; F12.20 Cannabis dependence, uncomplicated; F16.20 Hallucinogen dependence, uncomplicated; F17.213 Nicotine dependence, cigarettes, with withdrawal; F31.9 Bipolar disorder, unspecified; F19.24 Other psychoactive substance dependence with psychoactive substance-induced mood disorder; F19.282 Other psychoactive substance dependence with psychoactive substance-induced sleep disorder; I10 Essential (primary) hypertension; Z88.8 Allergy status to other drugs, medicaments and biological substances; Z91.14 Patient's other noncompliance with medication regimen; Z91.5 Personal history of self-harm
CPT/HCPCS: 36415; 80053; 81003; 85027; 86593; 87389; 93005; 93010

== ENCOUNTER 2017-06-23 10:19 | Inpatient (IN) | payer OTHER ==
[2017-06-23 10:54] VITALS: BMI 27.2
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
[2017-06-23] MEDS ORDERED: guaiFENesin/D-METHORPHAN HB 10 ML UNIT-DOSE CUPS PO PRN (12:53)
[2017-06-23] MEDS ORDERED: MAGNESIUM CITRATE 300 ML BOTTLE PO PRN (12:53)
[2017-06-23] MEDS ORDERED: IBUPROFEN 400 MG TABLET (FP) PO PRN (12:53)
[2017-06-23] MEDS ORDERED: MAGNESIUM HYDROX 2400MG/30ML ORAL SUSPENSION 30 ML CUP PO PRN (12:53)
[2017-06-23] MEDS ORDERED: MENTHOL/PHENOL 1 EACH UD MM PRN (12:53)
[2017-06-23] MEDS ORDERED: MAG HYDROX/AL HYDROX/SIMETH 30 ML UNIT-DOSE CUP PO PRN (12:53)
[2017-06-23] MEDS ORDERED: chlordiazePOXIDE HCL 25 MG CAPSULE PO PRN (12:53)
[2017-06-23] MEDS ORDERED: hydrOXYzine PAMOATE 50 MG CAPSULE (FP) PO PRN (12:53)
[2017-06-23] MEDS ORDERED: chlordiazePOXIDE HCL 25 MG CAPSULE PO ONE (12:53)
[2017-06-23] MEDS ORDERED: LOPERAMIDE HCL 2 MG CAPSULE PO PRN (12:53)
[2017-06-23] MEDS ORDERED: P-EPHED 60MG/TRIPROLIDI 2.5MG TABLET PO PRN (12:53)
[2017-06-23] MEDS: chlordiazePOXIDE HCL 25 MG CAPSULE PO SCH ×2 (17:12→22:27)
[2017-06-23] MEDS ORDERED: MELATONIN 5 MG TABLETS PO PRN (22:00)
[2017-06-23] MEDS ORDERED: THIAMINE HCL 100 MG TABLET (FP) PO SCH (22:00)
[2017-06-24] MEDS: chlordiazePOXIDE HCL 25 MG CAPSULE PO SCH ×2 (05:28→10:32)
[2017-06-24 09:56] LABS: HEMATOCRIT 40.3 % (35.4-49); HEMOGLOBIN 13.4 GM/dL (11.7-16.9); MCH 30.7 pg (25.7-33.7); MCHC 33.3 g/dl (32.0-35.9); MEAN CELL VOLUME 92.3 fl (80-96); MEAN PLT VOLUME 9.9 fl (7.5-11.1); PLATELET COUNT 154 K/MM3 (134-434); RBC 4.36 M/mm3 (4.00-5.60); RDW 14.6 % (11.9-15.9); WHITE BLOOD COUNT 5.3 K/mm3 (4.0-10.0)
[2017-06-24] MEDS ORDERED: PRENATAL VITAMINS W/ FOLIC ACID TABLET (FP) PO SCH (10:00)
[2017-06-24] MEDS ORDERED: VITAMINS A AND D TOPICAL OINTMENT 60 GM TUBE TP SCH (10:00)
[2017-06-24 10:09] LABS: ALBUMIN 3.1 g/dl (3.4-5.0); ANION GAP 8 (8-16); BLOOD UREA NITROGEN 16 mg/dL (7-18); CALCIUM 8.3 mg/dL (8.5-10.1); CHLORIDE 107 mmol/L (98-107); CO2 26 mmol/L (21-32); GLUCOSE,RANDOM 93 mg/dL (74-106); POTASSIUM 3.7 mmol/L (3.5-5.1); SGOT/AST 21 U/L (15-37); SGPT/ALT 23 U/L (12-78); SODIUM 141 mmol/L (136-145)
[2017-06-24 10:11] LABS: ALK PHOS 122 U/L (45-117); BILIRUBIN,TOTAL 0.2 mg/dL (0.2-1.0); TOT PROT 6.1 g/dl (6.4-8.2)
--- NOTE | 2017-06-24 12:39 | EKG ---
Test Reason : Blood Pressure : / mmHG Vent. Rate : 051 BPM Atrial Rate : 051 BPM P-R Int : 164 ms QRS Dur : 112 ms QT Int : 446 ms P-R-T Axes : 055 040 038 degrees QTc Int : 411 ms SINUS BRADYCARDIA INCOMPLETE RIGHT BUNDLE BRANCH BLOCK JUNCTIONAL ST DEPRESSION, PROBABLY NORMAL BORDERLINE ECG WHEN COMPARED WITH ECG OF 22-APR-2017 08:44, INCOMPLETE RIGHT BUNDLE BRANCH BLOCK HAS REPLACED RIGHT BUNDLE BRANCH BLOCK Confirmed by ELVA ALLAN MD ([id number]) on 06/24/2017 12:39:46 PM Referred By: Confirmed By:ELVA ALLAN MD
[2017-06-24 13:03] LABS: URINE APPEARANCE CLEAR; URINE BILIRUBIN NEGATIVE (<2.0 mg/dL); URINE BLOOD NEGATIVE (NEGATIVE); URINE COLOR LTYELLOW; URINE GLUCOSE (UA) NEGATIVE (NEGATIVE); URINE KETONE NEGATIVE (NEGATIVE); URINE LEUK ESTERASE NEGATIVE (NEGATIVE); URINE NITRITE NEGATIVE (NEGATIVE); URINE PROTEIN NEGATIVE (NEGATIVE); URINE UROBILINOGEN NEGATIVE mg/dL (0.2-1.0)
[2017-06-24 13:25] VITALS: BP 140/89; PULSE 69; TEMP 96.9
--- NOTE | 2017-06-24 13:36 | PN ---
[facility] CIWA - CIWA Score Nausea/Vomitin-No Nausea/No Vomiting Muscle Tremors: 4-Moderate,w/Arms Extend Anxiety: 4-Mod. Anxious/Guarded Agitation: 4-Moderately Restless Paroxysmal Sweats: 1-Minimal Palms Moist Orientation: 0-Oriented Tacttile Disturbances: 0-None Auditory Disturbances: 0-None Visual Disturbances: 0-None Headache: 0-None Present CIWA-Ar Total Score: 13 S Progress Note (SOAP) Subjective: ANXIETY,SWEATS,DRY SKIN. Objective: 06/24/17 13:35 Vital Signs Temperature 96.9 F L 06/24/17 13:25 Pulse Rate 69 06/24/17 13:25 Respiratory Rate 18 06/24/17 13:25 Blood Pressure 140/89 06/24/17 13:25 O2 Sat by Pulse Oximetry (%) Laboratory Last Values WBC 5.3 K/mm3 (4.0-10.0) 06/24/17 07:30 RBC 4.36 M/mm3 (4.00-5.60) 06/24/17 07:30 Hgb 13.4 GM/dL (11.7-16.9) 06/24/17 07:30 Hct 40.3 % (35.4-49) 06/24/17 07:30 MCV 92.3 fl (80-96) 06/24/17 07:30 MCH 30.7 pg (25.7-33.7) 06/24/17 07:30 MCHC 33.3 g/dl (32.0-35.9) 06/24/17 07:30 RDW 14.6 % (11.9-15.9) 06/24/17 07:30 Plt Count 154 K/MM3 (134-434) 06/24/17 07:30 MPV 9.9 fl (7.5-11.1) D 06/24/17 07:30 Sodium 141 mmol/L (136-145) 06/24/17 07:30 Potassium 3.7 mmol/L (3.5-5.1) 06/24/17 07:30 Chloride 107 mmol/L (98-107) 06/24/17 07:30 Carbon Dioxide 26 mmol/L (21-32) 06/24/17 07:30 Anion Gap 8 (8-16) 06/24/17 07:30 BUN 16 mg/dL (7-18) D 06/24/17 07:30 Creatinine 1.0 mg/dL (0.7-1.3) 06/24/17 07:30 Creat Clearance w eGFR > 60 (>60) 06/24/17 07:30 Random Glucose 93 mg/dL (74-106) 06/24/17 07:30 Calcium 8.3 mg/dL (8.5-10.1) L 06/24/17 07:30 Total Bilirubin 0.2 mg/dL (0.2-1.0) D 06/24/17 07:30 AST 21 U/L (15-37) 06/24/17 07:30 ALT 23 U/L (12-78) 06/24/17 07:30 Alkaline Phosphatase 122 U/L (45-117) H 06/24/17 07:30 Total Protein 6.1 g/dl (6.4-8.2) L 06/24/17 07:30 Albumin 3.1 g/dl (3.4-5.0) L 06/24/17 07:30 Urine Color Ltyellow 06/24/17 10:00 Urine Appearance Clear 06/24/17 10:00 Urine pH 5.0 (5.0-8.0) 06/24/17 10:00 Ur Specific [place] 1.024 (1.001-1.035) 06/24/17 10:00 Urine Protein Negative (NEGATIVE) 06/24/17 10:00 Urine Glucose (UA) Negative (NEGATIVE) 06/24/17 10:00 Urine Ketones Negative (NEGATIVE) 06/24/17 10:00 Urine Blood Negative (NEGATIVE) 06/24/17 10:00 Urine Nitrite Negative (NEGATIVE) 06/24/17 10:00 Urine Bilirubin Negative (<2.0 mg/dL) 06/24/17 10:00 Urine Urobilinogen Negative mg/dL (0.2-1.0) 06/24/17 10:00 Ur Leukocyte Esterase Negative (NEGATIVE) 06/24/17 10:00 RPR Titer Nonreactive (NONREACTIVE) 06/24/17 07:30 Assessment: 06/24/17 13:36 WITHDRAWAL SX Plan: CONTINUE DETOX A/D OINTMENT
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
--- NOTE | 2017-06-24 14:45 | DS ---
[facility] Detox Discharge Summary Admission Date: 06/23/17 Discharge Date: 06/24/17 - History Present History: Alcohol Dependence, Cocaine Dependence Additional Comments: PT DECLINED TO CONTINUE WITH DETOX STATING "I HAVE TO GO TAKE CARE OF THINGS". ALERT O X 3. Pertinent Past History: PLEASE SEE DX BELOW - Physical Exam Results Vital Signs: Vital Signs Temperature 96.9 F L 06/24/17 13:25 Pulse Rate 69 06/24/17 13:25 Respiratory Rate 18 06/24/17 13:25 Blood Pressure 140/89 06/24/17 13:25 O2 Sat by Pulse Oximetry (%) Pertinent Admission Physical Exam Findings: WITHDRAWAL SX Laboratory Last Values WBC 5.3 K/mm3 (4.0-10.0) 06/24/17 07:30 RBC 4.36 M/mm3 (4.00-5.60) 06/24/17 07:30 Hgb 13.4 GM/dL (11.7-16.9) 06/24/17 07:30 Hct 40.3 % (35.4-49) 06/24/17 07:30 MCV 92.3 fl (80-96) 06/24/17 07:30 MCH 30.7 pg (25.7-33.7) 06/24/17 07:30 MCHC 33.3 g/dl (32.0-35.9) 06/24/17 07:30 RDW 14.6 % (11.9-15.9) 06/24/17 07:30 Plt Count 154 K/MM3 (134-434) 06/24/17 07:30 MPV 9.9 fl (7.5-11.1) D 06/24/17 07:30 Sodium 141 mmol/L (136-145) 06/24/17 07:30 Potassium 3.7 mmol/L (3.5-5.1) 06/24/17 07:30 Chloride 107 mmol/L (98-107) 06/24/17 07:30 Carbon Dioxide 26 mmol/L (21-32) 06/24/17 07:30 Anion Gap 8 (8-16) 06/24/17 07:30 BUN 16 mg/dL (7-18) D 06/24/17 07:30 Creatinine 1.0 mg/dL (0.7-1.3) 06/24/17 07:30 Creat Clearance w eGFR > 60 (>60) 06/24/17 07:30 Random Glucose 93 mg/dL (74-106) 06/24/17 07:30 Calcium 8.3 mg/dL (8.5-10.1) L 06/24/17 07:30 Total Bilirubin 0.2 mg/dL (0.2-1.0) D 06/24/17 07:30 AST 21 U/L (15-37) 06/24/17 07:30 ALT 23 U/L (12-78) 06/24/17 07:30 Alkaline Phosphatase 122 U/L (45-117) H 06/24/17 07:30 Total Protein 6.1 g/dl (6.4-8.2) L 06/24/17 07:30 Albumin 3.1 g/dl (3.4-5.0) L 06/24/17 07:30 Urine Color Ltyellow 06/24/17 10:00 Urine Appearance Clear 06/24/17 10:00 Urine pH 5.0 (5.0-8.0) 06/24/17 10:00 Ur Specific [place] 1.024 (1.001-1.035) 06/24/17 10:00 Urine Protein Negative (NEGATIVE) 06/24/17 10:00 Urine Glucose (UA) Negative (NEGATIVE) 06/24/17 10:00 Urine Ketones Negative (NEGATIVE) 06/24/17 10:00 Urine Blood Negative (NEGATIVE) 06/24/17 10:00 Urine Nitrite Negative (NEGATIVE) 06/24/17 10:00 Urine Bilirubin Negative (<2.0 mg/dL) 06/24/17 10:00 Urine Urobilinogen Negative mg/dL (0.2-1.0) 06/24/17 10:00 Ur Leukocyte Esterase Negative (NEGATIVE) 06/24/17 10:00 RPR Titer Nonreactive (NONREACTIVE) 06/24/17 07:30 - Treatment Hospital Course: Discharged Condition Good - Medication Discharge Medications: Ambulatory Orders Quetiapine Fumarate [Seroquel] 200 mg PO HS #30 tablet 04/22/17 traZODone HCL [Desyrel -] 50 mg PO HS #30 tablet 04/22/17 Amlodipine Besylate [Norvasc -] 10 mg PO DAILY #30 tablet 04/23/17 - Diagnosis (1) Alcohol dependence with uncomplicated withdrawal Current Visit: Yes Status: Acute (2) Cocaine dependence, uncomplicated Current Visit: Yes Status: Acute (3) Hypertension Current Visit: Yes Status: Chronic Qualifiers: Hypertension type: essential hypertension Qualified Code(s): I10 - Essential (primary) hypertension (4) Nicotine dependence Current Visit: Yes Status: Acute Qualifiers: Nicotine product type: cigarettes Substance use status: in withdrawal Qualified Code(s): F17.213 - Nicotine dependence, cigarettes, with withdrawal (5) Cannabis dependence Current Visit: Yes Status: Acute (6) Phencyclidine dependence Current Visit: Yes Status: Acute (7) Dry skin Current Visit: Yes Status: Acute - AMA Did Patient Leave Against Medical Advice: Yes (AMA)
[2017-06-24] MEDS ORDERED: chlordiazePOXIDE HCL 25 MG CAPSULE PO SCH (17:00)
[2017-06-24] MEDS ORDERED: traZODone HCL 50 MG TABLET (FP) PO SCH (22:00)
[2017-06-24] MEDS ORDERED: QUEtiapine FUMARATE 100 MG TABLET (FP) PO SCH (22:00)
[2017-06-25] MEDS ORDERED: chlordiazePOXIDE 5 MG CAPSULE PO SCH (17:00)
[2017-06-26] MEDS ORDERED: chlordiazePOXIDE HCL 10 MG CAPSULE PO SCH (17:00)
== END 2017-06-24 14:36 | disposition left against medical advice (07) | DRG 770 ==
LOC: YASAS 10:19 → Y3N 12:27
PROVIDERS: ADMIT Internal Medicine; ATTEND Internal Medicine
PROC: HZ2ZZZZ Detoxification Services for Substance Abuse Treatment (ICD-10-PCS; principal; 2017-06-23)
DX: F10.230 Alcohol dependence with withdrawal, uncomplicated (principal); F14.20 Cocaine dependence, uncomplicated; F12.20 Cannabis dependence, uncomplicated; F16.20 Hallucinogen dependence, uncomplicated; F17.213 Nicotine dependence, cigarettes, with withdrawal; F19.24 Other psychoactive substance dependence with psychoactive substance-induced mood disorder; F31.9 Bipolar disorder, unspecified; G47.00 Insomnia, unspecified; L85.3 Xerosis cutis; R63.4 Abnormal weight loss; Z68.27 Body mass index [BMI] 27.0-27.9, adult
CPT/HCPCS: 36415; 80053; 81003; 85027; 86593; 93005; 93010

== ENCOUNTER 2017-08-06 14:40 | Inpatient (IN) | payer OTHER ==
[2017-08-06 17:30] VITALS: BMI 26.9
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
[2017-08-06] MEDS ORDERED: MENTHOL/PHENOL 1 EACH UD MM PRN (20:36)
[2017-08-06] MEDS ORDERED: chlordiazePOXIDE HCL 25 MG CAPSULE PO PRN (20:36)
[2017-08-06] MEDS ORDERED: MAG HYDROX/AL HYDROX/SIMETH 30 ML UNIT-DOSE CUP PO PRN (20:36)
[2017-08-06] MEDS ORDERED: guaiFENesin/D-METHORPHAN HB 10 ML UNIT-DOSE CUPS PO PRN (20:36)
[2017-08-06] MEDS ORDERED: hydrOXYzine PAMOATE 50 MG CAPSULE (FP) PO PRN (20:36)
[2017-08-06] MEDS ORDERED: P-EPHED 60MG/TRIPROLIDI 2.5MG TABLET PO PRN (20:36)
[2017-08-06] MEDS ORDERED: LOPERAMIDE HCL 2 MG CAPSULE PO PRN (20:36)
[2017-08-06] MEDS ORDERED: MAGNESIUM HYDROX 2400MG/30ML ORAL SUSPENSION 30 ML CUP PO PRN (20:36)
[2017-08-06] MEDS ORDERED: MAGNESIUM CITRATE 300 ML BOTTLE PO PRN (20:36)
[2017-08-06] MEDS ORDERED: chlordiazePOXIDE HCL 25 MG CAPSULE PO ONE (21:15)
[2017-08-06] MEDS ORDERED: MELATONIN 5 MG TABLETS PO PRN (22:00)
[2017-08-06] MEDS: amLODIPine BESYLATE 10 MG TABLET (FP) PO SCH (22:50)
[2017-08-06] MEDS: BACITRACIN 0.9 GM PACKET TP SCH (22:50)
[2017-08-06] MEDS: THIAMINE HCL 100 MG TABLET (FP) PO SCH (22:50)
[2017-08-06 23:04] LABS: URINE APPEARANCE CLEAR; URINE BILIRUBIN NEGATIVE (<2.0 mg/dL); URINE COLOR AMBER; URINE GLUCOSE (UA) 1+ (NEGATIVE); URINE KETONE TRACE (NEGATIVE); URINE LEUK ESTERASE NEGATIVE (NEGATIVE); URINE NITRITE NEGATIVE (NEGATIVE)
[2017-08-06 23:06] LABS: URINE PROTEIN 1+ (NEGATIVE)
[2017-08-06 23:17] LABS: EPI CELLS RARE /HPF (FEW); URINE MUCUS RARE
[2017-08-06] MEDS: chlordiazePOXIDE HCL 25 MG CAPSULE PO SCH (23:23)
[2017-08-07] MEDS: chlordiazePOXIDE HCL 25 MG CAPSULE PO SCH ×4 (06:23→22:03)
--- NOTE | 2017-08-07 09:15 | CONSULT ---
[facility] Psychiatric Consult - Data Date of interview: 08/07/17 Admission source: [facility] Identifying data: This is a 52 years old male, single, homeless, unemployed, on PA, with history of Bipolar Disorder, with psychiatric hospitalization history, with history of alcohol, cocaine, PCP, THC dependence is here seeking detox. Substance Abuse History: - Smoking Cessation. Smoking history: Former smoker. Have you smoked in the past 12 months: No. Aproximately how many cigarettes per day: 0. Cigars Per Day: 0. Hx Chewing Tobacco Use: No. Initiated information on smoking cessation: No. - Substance & Tx. History. Hx Alcohol Use: Yes. Hx Substance Use: Yes. Substance Use Type: Alcohol, Cocaine, Marijuana. Hx Substance Use Treatment: Yes ([facility] June 2017). - Substances Abused. Alcohol. Route: Oral. Frequency: Daily. Amount used: 6 - 8 pints vodka. Age of first use: 18. Date of Last Use: 08/05/17. Cocaine. Route: Inhalation. Frequency: 3-6 times per week. Amount used: $20. Age of first use : 23. Date of Last Use: 08/04/17. Marijuana/Hashish. Route: Smoking. Frequency: 1-2 times per week. Amount used: $20. Age of first use: 15. Date of Last Use: 08/03/17. PCP. Route: Smoking. Frequency: 1-2 times per week. Amount used: $20. Age of first use: 17. Date of Last Use: 08/04/17 Medical History: HTN, PPD positive history, both knees injury history, s/p umbilical hernia, Syncope history Psychiatric History: Patient reports to carry Bipolar disorder with most recent psychiatric admission at [facility] due to suicidal ideation on 2017. Patient reports history of suicidal ideations and attempts, reports recent admission to [facility] after trying to jump of the a 3rd floor. Reports no suicadal ideations when he is sober. Currently stable on: Trazodone 150mg po qhs. Serpquel 100mg po qhs Physical/Sexual Abuse/Trauma History: Denies Additional Comment: Trazodone 150mg po qhs. Serpquel 100mg po qhs Mental Status Exam - Mental Status Exam Alert and Oriented to: Person Cognitive Function: Fair Patient Appearance: Unkempt Mood: Sad, Suspicious Affect: Flat Patient Behavior: Sedated Speech Pattern: Delayed Voice Loudness: Mildly Soft/Quiet Thought Process: Circumstantial Thought Disorder: Being Controlled Hallucinations: Denies Suicidal Ideation: Denies Homicidal Ideation: Denies Insight/Judgement: Fair Sleep: Difficulty falling asleep Appetite: Weight gain Muscle strength/Tone: Normal Gait/Station: Normal Additional Comments: Trazodone 150mg po qhs. Serpquel 100mg po qhs Psychiatric Findings - Problem List ([place] 1, 2,3) (1) Alcohol dependence with uncomplicated withdrawal Current Visit: Yes Status: Acute (2) Cannabis dependence Current Visit: Yes Status: Acute (3) Phencyclidine dependence Current Visit: Yes Status: Acute (4) History of bipolar disorder Current Visit: Yes Status: Suspected (5) Alcohol-induced mood disorder Current Visit: No Status: Acute (6) Alcohol-induced sleep disorder Current Visit: No Status: Acute (7) Bipolar disorder Current Visit: No Status: Acute (8) Cocaine dependence, uncomplicated Current Visit: No Status: Acute (9) Drug-induced mood disorder Current Visit: No Status: Acute (10) Marihuana dependence Current Visit: No Status: Acute (11) Nicotine dependence Current Visit: No Status: Acute Qualifiers: Nicotine product type: cigarettes Substance use status: in withdrawal Qualified Code(s): F17.213 - Nicotine dependence, cigarettes, with withdrawal (12) Substance-induced sleep disorder Current Visit: No Status: Acute - Initial Treatment Plan Initial Treatment Plan: Trazodone 150mg po qhs. Serpquel 100mg po qhs
--- NOTE | 2017-08-07 10:15 | PN ---
S CIWA - CIWA Score Nausea/Vomitin-Mild Nausea/No Vomiting Muscle Tremors: 3 Anxiety: 2 Agitation: 3 Paroxysmal Sweats: 1-Minimal Palms Moist Orientation: 0-Oriented Tacttile Disturbances: 1-Very Mild Itch/Numbness Auditory Disturbances: 0-None Visual Disturbances: 0-None Headache: 0-None Present CIWA-Ar Total Score: 11 BHS Progress Note (SOAP) Subjective: sweat tremor anxiety restlessness irritable Objective: 08/07/17 10:22 Vital Signs Temperature 96.4 F L 08/07/17 08:16 Pulse Rate 65 08/07/17 08:16 Respiratory Rate 20 08/07/17 08:16 Blood Pressure 150/103 08/07/17 08:16 O2 Sat by Pulse Oximetry (%) Laboratory Last Values Urine Color Sheri 08/06/17 21:35 Urine Appearance Clear 08/06/17 21:35 Urine pH 5.0 (5.0-8.0) 08/06/17 21:35 Ur Specific [place] 1.032 (1.001-1.035) 08/06/17 21:35 Urine Protein 1+ (NEGATIVE) H 08/06/17 21:35 Urine Glucose (UA) 1+ (NEGATIVE) H 08/06/17 21:35 Urine Ketones Trace (NEGATIVE) H 08/06/17 21:35 Urine Blood Negative (NEGATIVE) 08/06/17 21:35 Urine Nitrite Negative (NEGATIVE) 08/06/17 21:35 Urine Bilirubin Negative (<2.0 mg/dL) 08/06/17 21:35 Urine Urobilinogen 2.0 mg/dL (0.2-1.0) 08/06/17 21:35 Ur Leukocyte Esterase Negative (NEGATIVE) 08/06/17 21:35 Urine WBC (Auto) 1 /hpf (3-5) 08/06/17 21:35 Urine RBC (Auto) <1 /hpf (0-3) 08/06/17 21:35 Ur Epithelial Cells Rare /HPF (FEW) 08/06/17 21:35 Urine Mucus Rare 08/06/17 21:35 lab noted Assessment: 08/07/17 10:23 withdrawal sx hypertension Plan: continue detox lisinopril 5 mg po bid
[2017-08-07] MEDS: amLODIPine BESYLATE 10 MG TABLET (FP) PO SCH (10:23)
[2017-08-07] MEDS: PRENATAL VITAMINS W/ FOLIC ACID TABLET (FP) PO SCH (10:23)
[2017-08-07] MEDS: BACITRACIN 0.9 GM PACKET TP SCH ×4 (10:23→22:03)
[2017-08-07 10:43] LABS: HEMATOCRIT 38.3 % (35.4-49); HEMOGLOBIN 12.7 GM/dL (11.7-16.9); MCHC 33.2 g/dl (32.0-35.9); MEAN CELL VOLUME 93.4 fl (80-96); MEAN PLT VOLUME 9.7 fl (7.5-11.1); PLATELET COUNT 132 K/MM3 (134-434); RDW 15.1 % (11.9-15.9); WHITE BLOOD COUNT 4.9 K/mm3 (4.0-10.0)
[2017-08-07 10:51] LABS: CHLORIDE 106 mmol/L (98-107); POTASSIUM 3.6 mmol/L (3.5-5.1); SODIUM 139 mmol/L (136-145)
[2017-08-07] MEDS: LISINOPRIL 5 MG TABLET (FP) PO SCH ×2 (11:00→22:03)
[2017-08-07] MEDS: CLOTRIMAZOLE 1% CREAM 15 GM TUBE TP SCH ×2 (12:21→22:03)
[2017-08-07 12:26] LABS: ALBUMIN 2.9 g/dl (3.4-5.0); ALK PHOS 118 U/L (45-117); ANION GAP 8 (8-16); BILIRUBIN,TOTAL 0.3 mg/dL (0.2-1.0); BLOOD UREA NITROGEN 17 mg/dL (7-18); CALCIUM 7.9 mg/dL (8.5-10.1); CO2 25 mmol/L (21-32); CREATININE 1.2 mg/dL (0.7-1.3); GLUCOSE,RANDOM 155 mg/dL (74-106); SGOT/AST 33 U/L (15-37); TOT PROT 5.8 g/dl (6.4-8.2)
--- NOTE | 2017-08-07 13:29 | EKG ---
Test Reason : Blood Pressure : / mmHG Vent. Rate : 050 BPM Atrial Rate : 050 BPM P-R Int : 164 ms QRS Dur : 150 ms QT Int : 460 ms P-R-T Axes : 055 056 051 degrees QTc Int : 419 ms SINUS BRADYCARDIA RIGHT BUNDLE BRANCH BLOCK ABNORMAL ECG WHEN COMPARED WITH ECG OF 23-JUN-2017 13:44, QRS DURATION HAS INCREASED Confirmed by STELLA GREENWOOD MD ([id number]) on 08/07/2017 1:29:46 PM Referred By: Confirmed By:STELLA GREENWOOD MD
[2017-08-07 13:38] LABS: SGPT/ALT 29 U/L (12-78)
[2017-08-07] MEDS ORDERED: QUEtiapine FUMARATE 100 MG TABLET (FP) PO SCH (22:00)
[2017-08-07] MEDS ORDERED: traZODone HCL 50 MG TABLET (FP) PO SCH (22:00)
[2017-08-07] MEDS: THIAMINE HCL 100 MG TABLET (FP) PO SCH (22:03)
[2017-08-08] MEDS: chlordiazePOXIDE HCL 25 MG CAPSULE PO SCH ×2 (05:58→10:40)
[2017-08-08] MEDS ORDERED: FLUOCINONIDE 0.05% CREAM (60 GM TUBE) TP SCH (10:15)
[2017-08-08] MEDS: CLOTRIMAZOLE 1% CREAM 15 GM TUBE TP SCH (10:40)
[2017-08-08] MEDS: BACITRACIN 0.9 GM PACKET TP SCH (10:40)
[2017-08-08] MEDS: LISINOPRIL 5 MG TABLET (FP) PO SCH (10:40)
[2017-08-08] MEDS: amLODIPine BESYLATE 10 MG TABLET (FP) PO SCH (10:40)
[2017-08-08] MEDS: PRENATAL VITAMINS W/ FOLIC ACID TABLET (FP) PO SCH (10:40)
[2017-08-08 10:43] VITALS: BP 144/92; PULSE 64; TEMP 97.2
--- NOTE | 2017-08-08 11:20 | PN ---
[facility] CIWA - CIWA Score Nausea/Vomitin-Mild Nausea/No Vomiting Muscle Tremors: 3 Anxiety: 2 Agitation: 2 Paroxysmal Sweats: 1-Minimal Palms Moist Orientation: 0-Oriented Tacttile Disturbances: 0-None Auditory Disturbances: 0-None Visual Disturbances: 0-None Headache: 0-None Present CIWA-Ar Total Score: 9 S Progress Note (SOAP) Subjective: mild gi distress sweat less tremor sleep better at night Objective: 08/08/17 11:17 Vital Signs Temperature 97.2 F L 08/08/17 10:42 Pulse Rate 64 08/08/17 10:42 Respiratory Rate 16 08/08/17 10:42 Blood Pressure 144/92 08/08/17 10:42 O2 Sat by Pulse Oximetry (%) Laboratory Last Values WBC 4.9 K/mm3 (4.0-10.0) 08/07/17 07:30 RBC 4.10 M/mm3 (4.00-5.60) 08/07/17 07:30 Hgb 12.7 GM/dL (11.7-16.9) 08/07/17 07:30 Hct 38.3 % (35.4-49) 08/07/17 07:30 MCV 93.4 fl (80-96) 08/07/17 07:30 MCH 31.0 pg (25.7-33.7) 08/07/17 07:30 MCHC 33.2 g/dl (32.0-35.9) 08/07/17 07:30 RDW 15.1 % (11.9-15.9) 08/07/17 07:30 Plt Count 132 K/MM3 (134-434) L 08/07/17 07:30 MPV 9.7 fl (7.5-11.1) 08/07/17 07:30 Sodium 139 mmol/L (136-145) 08/07/17 07:30 Potassium 3.6 mmol/L (3.5-5.1) 08/07/17 07:30 Chloride 106 mmol/L (98-107) 08/07/17 07:30 Carbon Dioxide 25 mmol/L (21-32) 08/07/17 07:30 Anion Gap 8 (8-16) 08/07/17 07:30 BUN 17 mg/dL (7-18) 08/07/17 07:30 Creatinine 1.2 mg/dL (0.7-1.3) 08/07/17 07:30 Creat Clearance w eGFR > 60 (>60) 08/07/17 07:30 POC Glucometer 98 UNITS (80-120) 08/08/17 06:03 Random Glucose 155 mg/dL (74-106) H D 08/07/17 07:30 Calcium 7.9 mg/dL (8.5-10.1) L 08/07/17 07:30 Total Bilirubin 0.3 mg/dL (0.2-1.0) D 08/07/17 07:30 AST 33 U/L (15-37) D 08/07/17 07:30 ALT 29 U/L (12-78) D 08/07/17 07:30 Alkaline Phosphatase 118 U/L (45-117) H 08/07/17 07:30 Total Protein 5.8 g/dl (6.4-8.2) L 08/07/17 07:30 Albumin 2.9 g/dl (3.4-5.0) L 08/07/17 07:30 Urine Color Sheri 08/06/17 21:35 Urine Appearance Clear 08/06/17 21:35 Urine pH 5.0 (5.0-8.0) 08/06/17 21:35 Ur Specific [place] 1.032 (1.001-1.035) 08/06/17 21:35 Urine Protein 1+ (NEGATIVE) H 08/06/17 21:35 Urine Glucose (UA) 1+ (NEGATIVE) H 08/06/17 21:35 Urine Ketones Trace (NEGATIVE) H 08/06/17 21:35 Urine Blood Negative (NEGATIVE) 08/06/17 21:35 Urine Nitrite Negative (NEGATIVE) 08/06/17 21:35 Urine Bilirubin Negative (<2.0 mg/dL) 08/06/17 21:35 Urine Urobilinogen 2.0 mg/dL (0.2-1.0) 08/06/17 21:35 Ur Leukocyte Esterase Negative (NEGATIVE) 08/06/17 21:35 Urine WBC (Auto) 1 /hpf (3-5) 08/06/17 21:35 Urine RBC (Auto) <1 /hpf (0-3) 08/06/17 21:35 Ur Epithelial Cells Rare /HPF (FEW) 08/06/17 21:35 Urine Mucus Rare 08/06/17 21:35 RPR Titer Nonreactive (NONREACTIVE) 08/07/17 07:30 HIV 1&2 Antibody Screen Negative 08/07/17 07:30 HIV P24 Antigen Negative 08/07/17 07:30 lab noted 08/08/17 11:18 patient had verbal argument with roommate transfer to different roommate Assessment: 08/08/17 11:17 withdrawal sx Plan: continue detox counselor nurse and provider team approach discuss feelings and concerns continue encourage verbalization
--- NOTE | 2017-08-08 14:12 | DS ---
[facility] Detox Discharge Summary Admission Date: 08/06/17 Discharge Date: 08/08/17 - History Present History: Alcohol Dependence Additional Comments: 52 years old male admitted 08/06/17 for alcohol withdrawal sx patient wants to terminate the alcohol detox regimen patient wants to leave the detox facility without apparent reason patient is alert oriented x 3 denies suicidal denies homocidal no self destructive behavior coherent speech clearly strong recommend the patient to attend community self help self addiction management groups and meetings encourage the patient to verbalize feelings and concerns patient gathered his belonging and left the unit with the security - Physical Exam Results Vital Signs: Vital Signs Temperature 97.2 F L 08/08/17 10:42 Pulse Rate 64 08/08/17 10:42 Respiratory Rate 16 08/08/17 10:42 Blood Pressure 144/92 08/08/17 10:42 O2 Sat by Pulse Oximetry (%) Pertinent Admission Physical Exam Findings: withdrawal sx Vital Signs Temperature 97.2 F L 08/08/17 10:42 Pulse Rate 64 08/08/17 10:42 Respiratory Rate 16 08/08/17 10:42 Blood Pressure 144/92 08/08/17 10:42 O2 Sat by Pulse Oximetry (%) Laboratory Last Values WBC 4.9 K/mm3 (4.0-10.0) 08/07/17 07:30 RBC 4.10 M/mm3 (4.00-5.60) 08/07/17 07:30 Hgb 12.7 GM/dL (11.7-16.9) 08/07/17 07:30 Hct 38.3 % (35.4-49) 08/07/17 07:30 MCV 93.4 fl (80-96) 08/07/17 07:30 MCH 31.0 pg (25.7-33.7) 08/07/17 07:30 MCHC 33.2 g/dl (32.0-35.9) 08/07/17 07:30 RDW 15.1 % (11.9-15.9) 08/07/17 07:30 Plt Count 132 K/MM3 (134-434) L 08/07/17 07:30 MPV 9.7 fl (7.5-11.1) 08/07/17 07:30 Sodium 139 mmol/L (136-145) 08/07/17 07:30 Potassium 3.6 mmol/L (3.5-5.1) 08/07/17 07:30 Chloride 106 mmol/L (98-107) 08/07/17 07:30 Carbon Dioxide 25 mmol/L (21-32) 08/07/17 07:30 Anion Gap 8 (8-16) 08/07/17 07:30 BUN 17 mg/dL (7-18) 08/07/17 07:30 Creatinine 1.2 mg/dL (0.7-1.3) 08/07/17 07:30 Creat Clearance w eGFR > 60 (>60) 08/07/17 07:30 POC Glucometer 98 UNITS (80-120) 08/08/17 06:03 Random Glucose 155 mg/dL (74-106) H D 08/07/17 07:30 Calcium 7.9 mg/dL (8.5-10.1) L 08/07/17 07:30 Total Bilirubin 0.3 mg/dL (0.2-1.0) D 08/07/17 07:30 AST 33 U/L (15-37) D 08/07/17 07:30 ALT 29 U/L (12-78) D 08/07/17 07:30 Alkaline Phosphatase 118 U/L (45-117) H 08/07/17 07:30 Total Protein 5.8 g/dl (6.4-8.2) L 08/07/17 07:30 Albumin 2.9 g/dl (3.4-5.0) L 08/07/17 07:30 Urine Color Sheri 08/06/17 21:35 Urine Appearance Clear 08/06/17 21:35 Urine pH 5.0 (5.0-8.0) 08/06/17 21:35 Ur Specific [place] 1.032 (1.001-1.035) 08/06/17 21:35 Urine Protein 1+ (NEGATIVE) H 08/06/17 21:35 Urine Glucose (UA) 1+ (NEGATIVE) H 08/06/17 21:35 Urine Ketones Trace (NEGATIVE) H 08/06/17 21:35 Urine Blood Negative (NEGATIVE) 08/06/17 21:35 Urine Nitrite Negative (NEGATIVE) 08/06/17 21:35 Urine Bilirubin Negative (<2.0 mg/dL) 08/06/17 21:35 Urine Urobilinogen 2.0 mg/dL (0.2-1.0) 08/06/17 21:35 Ur Leukocyte Esterase Negative (NEGATIVE) 08/06/17 21:35 Urine WBC (Auto) 1 /hpf (3-5) 08/06/17 21:35 Urine RBC (Auto) <1 /hpf (0-3) 08/06/17 21:35 Ur Epithelial Cells Rare /HPF (FEW) 08/06/17 21:35 Urine Mucus Rare 08/06/17 21:35 RPR Titer Nonreactive (NONREACTIVE) 08/07/17 07:30 HIV 1&2 Antibody Screen Negative 08/07/17 07:30 HIV P24 Antigen Negative 08/07/17 07:30 lab noted - Treatment Hospital Course: Detox Protocol Followed, Responded well - Medication Discharge Medications: Ambulatory Orders Quetiapine Fumarate [Seroquel] 100 mg PO HS #30 tablet 08/07/17 traZODone HCL [Desyrel -] 50 mg PO HS #30 tablet 08/07/17 Amlodipine Besylate [Norvasc -] 10 mg PO DAILY #30 tablet 08/08/17 - Diagnosis (1) Alcohol dependence with uncomplicated withdrawal Current Visit: Yes Status: Acute (2) Essential (primary) hypertension Current Visit: Yes Status: Chronic (3) Nicotine dependence Current Visit: Yes Status: Acute Qualifiers: Nicotine product type: cigarettes Substance use status: in withdrawal Qualified Code(s): F17.213 - Nicotine dependence, cigarettes, with withdrawal - AMA Did Patient Leave Against Medical Advice: Yes
[2017-08-08] MEDS ORDERED: chlordiazePOXIDE 5 MG CAPSULE PO SCH (23:00)
[2017-08-09] MEDS ORDERED: chlordiazePOXIDE HCL 10 MG CAPSULE PO SCH (23:00)
== END 2017-08-08 13:34 | disposition left against medical advice (07) | DRG 770 ==
LOC: YASAS 14:40 → Y6N 20:55
PROVIDERS: ADMIT Surgery; ATTEND Surgery
PROC: HZ2ZZZZ Detoxification Services for Substance Abuse Treatment (ICD-10-PCS; principal; 2017-08-06)
DX: F10.230 Alcohol dependence with withdrawal, uncomplicated (principal); F10.24 Alcohol dependence with alcohol-induced mood disorder; F10.282 Alcohol dependence with alcohol-induced sleep disorder; F14.20 Cocaine dependence, uncomplicated; F16.20 Hallucinogen dependence, uncomplicated; F12.20 Cannabis dependence, uncomplicated; F17.213 Nicotine dependence, cigarettes, with withdrawal; F31.9 Bipolar disorder, unspecified; F19.24 Other psychoactive substance dependence with psychoactive substance-induced mood disorder; F19.282 Other psychoactive substance dependence with psychoactive substance-induced sleep disorder; I10 Essential (primary) hypertension; R76.11 Nonspecific reaction to tuberculin skin test without active tuberculosis; G47.00 Insomnia, unspecified; Z91.14 Patient's other noncompliance with medication regimen; Z91.5 Personal history of self-harm
CPT/HCPCS: 36415; 80053; 81003; 81015; 82962; 85027; 86593; 87389; 93005; 93010

== ENCOUNTER 2017-11-08 09:12 | Inpatient (IN) | payer OTHER ==
[2017-11-08 09:50] VITALS: BMI 26.6
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
[2017-11-08] MEDS ORDERED: hydrOXYzine PAMOATE 50 MG CAPSULE (FP) PO PRN (12:36)
[2017-11-08] MEDS ORDERED: MAGNESIUM CITRATE 300 ML BOTTLE PO PRN (12:36)
[2017-11-08] MEDS ORDERED: MAG HYDROX/AL HYDROX/SIMETH 30 ML UNIT-DOSE CUP PO PRN (12:36)
[2017-11-08] MEDS ORDERED: guaiFENesin/D-METHORPHAN HB 10 ML UNIT-DOSE CUPS PO PRN (12:36)
[2017-11-08] MEDS ORDERED: MENTHOL/PHENOL 1 EACH UD MM PRN (12:36)
[2017-11-08] MEDS ORDERED: MAGNESIUM HYDROX 2400MG/30ML ORAL SUSPENSION 30 ML CUP PO PRN (12:36)
[2017-11-08] MEDS ORDERED: LOPERAMIDE HCL 2 MG CAPSULE PO PRN (12:36)
[2017-11-08] MEDS ORDERED: P-EPHED 60MG/TRIPROLIDI 2.5MG TABLET PO PRN (12:36)
[2017-11-08] MEDS ORDERED: chlordiazePOXIDE HCL 25 MG CAPSULE PO ONE (12:55)
[2017-11-08] MEDS ORDERED: cloNIDine HCL 0.1 MG TABLET PO ONE (14:11)
--- NOTE | 2017-11-08 15:49 | EKG ---
Test Reason : Blood Pressure : / mmHG Vent. Rate : 064 BPM Atrial Rate : 064 BPM P-R Int : 164 ms QRS Dur : 152 ms QT Int : 446 ms P-R-T Axes : 058 055 032 degrees QTc Int : 460 ms NORMAL SINUS RHYTHM RIGHT BUNDLE BRANCH BLOCK ABNORMAL ECG WHEN COMPARED WITH ECG OF 06-AUG-2017 22:54, NO SIGNIFICANT CHANGE WAS FOUND Confirmed by TIMO MCWILLIAMS, STELLA ([id number]) on 11/08/2017 3:49:07 PM Referred By: Jane Sandhu Confirmed By:STELLA GREENWOOD MD
[2017-11-08] MEDS: chlordiazePOXIDE HCL 25 MG CAPSULE PO SCH ×2 (17:32→22:15)
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
[2017-11-08 19:04] LABS: URINE APPEARANCE TURBID; URINE BILIRUBIN NEGATIVE (<2.0 mg/dL); URINE COLOR YELLOW; URINE GLUCOSE (UA) NEGATIVE (NEGATIVE); URINE KETONE NEGATIVE (NEGATIVE); URINE LEUK ESTERASE NEGATIVE (NEGATIVE); URINE NITRITE NEGATIVE (NEGATIVE); URINE UROBILINOGEN NEGATIVE mg/dL (0.2-1.0)
[2017-11-08 19:10] LABS: URINE PROTEIN 1+ (NEGATIVE)
[2017-11-08 19:18] LABS: URINE MUCUS MANY
[2017-11-08] MEDS ORDERED: MELATONIN 5 MG TABLETS PO PRN (22:00)
[2017-11-08] MEDS: traZODone HCL 50 MG TABLET (FP) PO SCH (22:15)
[2017-11-08] MEDS: QUEtiapine FUMARATE 100 MG TABLET (FP) PO SCH (22:15)
[2017-11-08] MEDS: THIAMINE HCL 100 MG TABLET (FP) PO SCH (22:15)
[2017-11-09] MEDS: chlordiazePOXIDE HCL 25 MG CAPSULE PO SCH ×4 (05:59→22:10)
[2017-11-09 09:54] LABS: HEMATOCRIT 43.4 % (35.4-49); HEMOGLOBIN 14.2 GM/dL (11.7-16.9); MCH 30.3 pg (25.7-33.7); MCHC 32.8 g/dl (32.0-35.9); MEAN CELL VOLUME 92.5 fl (80-96); MEAN PLT VOLUME 10.5 fl (7.5-11.1); PLATELET COUNT 156 K/MM3 (134-434); RBC 4.69 M/mm3 (4.00-5.60); RDW 13.2 % (11.9-15.9); WHITE BLOOD COUNT 5.8 K/mm3 (4.0-10.0)
[2017-11-09] MEDS: PRENATAL VITAMINS W/ FOLIC ACID TABLET (FP) PO SCH (10:07)
[2017-11-09] MEDS: amLODIPine BESYLATE 10 MG TABLET (FP) PO SCH (10:07)
[2017-11-09 10:24] LABS: CHLORIDE 109 mmol/L (98-107); POTASSIUM 3.9 mmol/L (3.5-5.1); SODIUM 145 mmol/L (136-145)
[2017-11-09 10:50] LABS: ALK PHOS 101 U/L (45-117); ANION GAP 5 MMOL/L (8-16); BILIRUBIN,TOTAL 0.6 mg/dL (0.2-1.0); BLOOD UREA NITROGEN 14 mg/dL (7-18); CALCIUM 8.9 mg/dL (8.5-10.1); CO2 31 mmol/L (21-32); CREATININE 1.2 mg/dL (0.7-1.3); GLUCOSE,RANDOM 80 mg/dL (74-106); SGOT/AST 22 U/L (15-37); SGPT/ALT 30 U/L (12-78)
--- NOTE | 2017-11-09 17:57 | PN ---
[facility] CIWA - CIWA Score Nausea/Vomitin-No Nausea/No Vomiting Muscle Tremors: None Anxiety: 0-No Anxiety, at Ease Agitation: 0-Normal Activity Paroxysmal Sweats: 1-Minimal Palms Moist Orientation: 0-Oriented Tacttile Disturbances: 0-None Auditory Disturbances: 0-None Visual Disturbances: 0-None Headache: 0-None Present CIWA-Ar Total Score: 1 BHS Progress Note (SOAP) Subjective: pt states he is feeling fine Obj: Vital Signs - 24 hr 11/08/17 11/09/17 11/09/17 21:12 00:30 03:30 Temperature 98.3 F Pulse Rate 66 Respiratory 18 20 18 Rate Blood Pressure 153/94 11/09/17 11/09/17 11/09/17 06:24 06:30 11:12 Temperature 96.9 F L 97.8 F Pulse Rate 66 55 L Respiratory 18 18 16 Rate Blood Pressure 150/91 111/77 Laboratory Tests 11/08/17 11/09/17 11/09/17 18:30 06:00 06:00 WBC 5.8 RBC 4.69 Hgb 14.2 Hct 43.4 MCV 92.5 MCH 30.3 MCHC 32.8 RDW 13.2 D Plt Count 156 MPV 10.5 Sodium 145 Potassium 3.9 Chloride 109 H Carbon Dioxide 31 D Anion Gap 5 L BUN 14 Creatinine 1.2 Creat Clearance w eGFR > 60 Random Glucose 80 D Calcium 8.9 Total Bilirubin 0.6 AST 22 D ALT 30 Alkaline Phosphatase 101 Total Protein 8.0 Albumin 4.0 Urine Color Yellow Urine Appearance Turbid Urine pH 5.0 Ur Specific [place] 1.032 Urine Protein 1+ H Urine Glucose (UA) Negative Urine Ketones Negative Urine Blood Negative Urine Nitrite Negative Urine Bilirubin Negative Urine Urobilinogen Negative Ur Leukocyte Esterase Negative Urine WBC (Auto) None Urine RBC (Auto) None Urine Mucus Many RPR Titer 11/09/17 06:00 WBC RBC Hgb Hct MCV MCH MCHC RDW Plt Count MPV Sodium Potassium Chloride Carbon Dioxide Anion Gap BUN Creatinine Creat Clearance w eGFR Random Glucose Calcium Total Bilirubin AST ALT Alkaline Phosphatase Total Protein Albumin Urine Color Urine Appearance Urine pH Ur Specific [place] Urine Protein Urine Glucose (UA) Urine Ketones Urine Blood Urine Nitrite Urine Bilirubin Urine Urobilinogen Ur Leukocyte Esterase Urine WBC (Auto) Urine RBC (Auto) Urine Mucus RPR Titer Nonreactive labs WNL VS WNL Ass: pt here for alcohol detox Plan: continue alcohol detox.
[2017-11-09] MEDS: QUEtiapine FUMARATE 100 MG TABLET (FP) PO SCH (22:10)
[2017-11-09] MEDS: traZODone HCL 50 MG TABLET (FP) PO SCH (22:10)
[2017-11-09] MEDS: THIAMINE HCL 100 MG TABLET (FP) PO SCH (22:10)
[2017-11-10] MEDS: chlordiazePOXIDE HCL 25 MG CAPSULE PO SCH ×2 (06:17→10:15)
[2017-11-10] MEDS: PRENATAL VITAMINS W/ FOLIC ACID TABLET (FP) PO SCH (10:15)
[2017-11-10] MEDS: amLODIPine BESYLATE 10 MG TABLET (FP) PO SCH (10:15)
--- NOTE | 2017-11-10 11:01 | PN ---
S CIWA - CIWA Score Nausea/Vomitin-No Nausea/No Vomiting Muscle Tremors: 4-Moderate,w/Arms Extend Anxiety: 4-Mod. Anxious/Guarded Agitation: 4-Moderately Restless Paroxysmal Sweats: 1-Minimal Palms Moist Orientation: 0-Oriented Tacttile Disturbances: 0-None Auditory Disturbances: 0-None Visual Disturbances: 0-None Headache: 0-None Present CIWA-Ar Total Score: 13 BHS Progress Note (SOAP) Subjective: ANXIETY,SWEATS,FATIGUE. Objective: 11/10/17 11:00 Vital Signs 11/10/17 11/10/17 11/10/17 03:30 06:05 10:39 Temperature 97.8 F 93.7 F L Pulse Rate 73 73 Respiratory 18 18 18 Rate Blood Pressure 152/90 169/91 Laboratory Tests 11/08/17 11/09/17 11/09/17 18:30 06:00 06:00 WBC 5.8 RBC 4.69 Hgb 14.2 Hct 43.4 MCV 92.5 MCH 30.3 MCHC 32.8 RDW 13.2 D Plt Count 156 MPV 10.5 Sodium 145 Potassium 3.9 Chloride 109 H Carbon Dioxide 31 D Anion Gap 5 L BUN 14 Creatinine 1.2 Creat Clearance w eGFR > 60 Random Glucose 80 D Calcium 8.9 Total Bilirubin 0.6 AST 22 D ALT 30 Alkaline Phosphatase 101 Total Protein 8.0 Albumin 4.0 Urine Color Yellow Urine Appearance Turbid Urine pH 5.0 Ur Specific [place] 1.032 Urine Protein 1+ H Urine Glucose (UA) Negative Urine Ketones Negative Urine Blood Negative Urine Nitrite Negative Urine Bilirubin Negative Urine Urobilinogen Negative Ur Leukocyte Esterase Negative Urine WBC (Auto) None Urine RBC (Auto) None Urine Mucus Many RPR Titer 11/09/17 06:00 WBC RBC Hgb Hct MCV MCH MCHC RDW Plt Count MPV Sodium Potassium Chloride Carbon Dioxide Anion Gap BUN Creatinine Creat Clearance w eGFR Random Glucose Calcium Total Bilirubin AST ALT Alkaline Phosphatase Total Protein Albumin Urine Color Urine Appearance Urine pH Ur Specific [place] Urine Protein Urine Glucose (UA) Urine Ketones Urine Blood Urine Nitrite Urine Bilirubin Urine Urobilinogen Ur Leukocyte Esterase Urine WBC (Auto) Urine RBC (Auto) Urine Mucus RPR Titer Nonreactive Assessment: 11/10/17 11:01 WITHDRAWAL SX Plan: CONTINUE DETOX
[2017-11-10] MEDS: chlordiazePOXIDE 5 MG CAPSULE PO SCH ×2 (17:19→22:18)
[2017-11-10] MEDS: chlordiazePOXIDE HCL 25 MG CAPSULE PO PRN ×2 (18:12→22:18)
[2017-11-10] MEDS: QUEtiapine FUMARATE 100 MG TABLET (FP) PO SCH (22:18)
[2017-11-10] MEDS: THIAMINE HCL 100 MG TABLET (FP) PO SCH (22:18)
[2017-11-10] MEDS: traZODone HCL 50 MG TABLET (FP) PO SCH (22:18)
[2017-11-11] MEDS: chlordiazePOXIDE 5 MG CAPSULE PO SCH ×2 (05:04→10:42)
[2017-11-11] MEDS: amLODIPine BESYLATE 10 MG TABLET (FP) PO SCH (10:42)
[2017-11-11] MEDS: PRENATAL VITAMINS W/ FOLIC ACID TABLET (FP) PO SCH (10:42)
--- NOTE | 2017-11-11 11:17 | PN ---
B[facility] Progress Note (SOAP) Subjective: ANXIETY, IRRITABILITY,SWEATS, PT REQUESTING A CANE FOR AMBULATION. Objective: 11/11/17 11:16 Vital Signs 11/11/17 11/11/17 11/11/17 03:30 06:12 09:06 Temperature 97 F L 97.8 F Pulse Rate 63 69 Respiratory 18 18 18 Rate Blood Pressure 147/89 133/86 Laboratory Tests 11/08/17 11/09/17 11/09/17 18:30 06:00 06:00 WBC 5.8 RBC 4.69 Hgb 14.2 Hct 43.4 MCV 92.5 MCH 30.3 MCHC 32.8 RDW 13.2 D Plt Count 156 MPV 10.5 Sodium 145 Potassium 3.9 Chloride 109 H Carbon Dioxide 31 D Anion Gap 5 L BUN 14 Creatinine 1.2 Creat Clearance w eGFR > 60 Random Glucose 80 D Calcium 8.9 Total Bilirubin 0.6 AST 22 D ALT 30 Alkaline Phosphatase 101 Total Protein 8.0 Albumin 4.0 Urine Color Yellow Urine Appearance Turbid Urine pH 5.0 Ur Specific [place] 1.032 Urine Protein 1+ H Urine Glucose (UA) Negative Urine Ketones Negative Urine Blood Negative Urine Nitrite Negative Urine Bilirubin Negative Urine Urobilinogen Negative Ur Leukocyte Esterase Negative Urine WBC (Auto) None Urine RBC (Auto) None Urine Mucus Many RPR Titer 11/09/17 06:00 WBC RBC Hgb Hct MCV MCH MCHC RDW Plt Count MPV Sodium Potassium Chloride Carbon Dioxide Anion Gap BUN Creatinine Creat Clearance w eGFR Random Glucose Calcium Total Bilirubin AST ALT Alkaline Phosphatase Total Protein Albumin Urine Color Urine Appearance Urine pH Ur Specific [place] Urine Protein Urine Glucose (UA) Urine Ketones Urine Blood Urine Nitrite Urine Bilirubin Urine Urobilinogen Ur Leukocyte Esterase Urine WBC (Auto) Urine RBC (Auto) Urine Mucus RPR Titer Nonreactive Assessment: 11/11/17 11:17 WITHDRAWAL SX Plan: CONTINUE DETOX OBTAIN CANE FOR PATIENT AMBULATION
[2017-11-11] MEDS: chlordiazePOXIDE HCL 10 MG CAPSULE PO SCH ×2 (18:11→22:05)
[2017-11-11] MEDS: THIAMINE HCL 100 MG TABLET (FP) PO SCH (22:05)
[2017-11-11] MEDS: QUEtiapine FUMARATE 100 MG TABLET (FP) PO SCH (22:06)
[2017-11-11] MEDS: traZODone HCL 50 MG TABLET (FP) PO SCH (22:06)
[2017-11-12] MEDS: chlordiazePOXIDE HCL 10 MG CAPSULE PO SCH (06:00)
[2017-11-12 09:11] VITALS: BP 125/78; PULSE 75; TEMP 97.5
--- NOTE | 2017-11-12 11:39 | PN ---
[facility] Progress Note (SOAP) Subjective: DETOX COMPLETED. ALERT O X 3. NAD. Objective: 11/12/17 12:49 Vital Signs 11/12/17 11/12/17 11/12/17 05:55 06:30 07:43 Temperature 97.4 F L 97.1 F L Pulse Rate 79 76 Respiratory 18 18 18 Rate Blood Pressure 161/89 132/84 11/12/17 09:10 Temperature 97.5 F L Pulse Rate 75 Respiratory 18 Rate Blood Pressure 125/78 Laboratory Tests 11/08/17 11/09/17 11/09/17 18:30 06:00 06:00 WBC 5.8 RBC 4.69 Hgb 14.2 Hct 43.4 MCV 92.5 MCH 30.3 MCHC 32.8 RDW 13.2 D Plt Count 156 MPV 10.5 Sodium 145 Potassium 3.9 Chloride 109 H Carbon Dioxide 31 D Anion Gap 5 L BUN 14 Creatinine 1.2 Creat Clearance w eGFR > 60 Random Glucose 80 D Calcium 8.9 Total Bilirubin 0.6 AST 22 D ALT 30 Alkaline Phosphatase 101 Total Protein 8.0 Albumin 4.0 Urine Color Yellow Urine Appearance Turbid Urine pH 5.0 Ur Specific [place] 1.032 Urine Protein 1+ H Urine Glucose (UA) Negative Urine Ketones Negative Urine Blood Negative Urine Nitrite Negative Urine Bilirubin Negative Urine Urobilinogen Negative Ur Leukocyte Esterase Negative Urine WBC (Auto) None Urine RBC (Auto) None Urine Mucus Many RPR Titer 11/09/17 06:00 WBC RBC Hgb Hct MCV MCH MCHC RDW Plt Count MPV Sodium Potassium Chloride Carbon Dioxide Anion Gap BUN Creatinine Creat Clearance w eGFR Random Glucose Calcium Total Bilirubin AST ALT Alkaline Phosphatase Total Protein Albumin Urine Color Urine Appearance Urine pH Ur Specific [place] Urine Protein Urine Glucose (UA) Urine Ketones Urine Blood Urine Nitrite Urine Bilirubin Urine Urobilinogen Ur Leukocyte Esterase Urine WBC (Auto) Urine RBC (Auto) Urine Mucus RPR Titer Nonreactive Assessment: 11/12/17 12:49 MEDICALLY STABLE Plan: D/C PT TODAY
--- NOTE | 2017-11-12 12:50 | DS ---
[facility] Detox Discharge Summary Admission Date: 11/08/17 Discharge Date: 11/12/17 - History Present History: Alcohol Dependence Additional Comments: DETOX COMPLETED. ALERT O X 3. NAD. Pertinent Past History: PLEASE SEE DX BELOW - Physical Exam Results Vital Signs: Vital Signs Temperature 97.5 F L 11/12/17 09:10 Pulse Rate 75 11/12/17 09:10 Respiratory Rate 18 11/12/17 09:10 Blood Pressure 125/78 11/12/17 09:10 O2 Sat by Pulse Oximetry (%) Pertinent Admission Physical Exam Findings: WITHDRAWAL SX - Treatment Hospital Course: Detox Protocol Followed, Detoxed Safely, Responded well, Discharged Condition Good - Medication Discharge Medications: Ambulatory Orders Quetiapine Fumarate [Seroquel] 100 mg PO HS #30 tablet 08/07/17 traZODone HCL [Desyrel -] 50 mg PO HS #30 tablet 08/07/17 Amlodipine Besylate [Norvasc -] 10 mg PO DAILY #30 tablet 08/08/17 - Diagnosis (1) Alcohol dependence with uncomplicated withdrawal Status: Acute (2) Cocaine dependence, uncomplicated Status: Acute (3) Dehydration Status: Acute (4) Nicotine dependence Status: Acute Qualifiers: Nicotine product type: cigarettes Substance use status: in withdrawal Qualified Code(s): F17.213 - Nicotine dependence, cigarettes, with withdrawal (5) Phencyclidine dependence Status: Acute (6) Essential (primary) hypertension Status: Chronic - AMA Did Patient Leave Against Medical Advice: No
== END 2017-11-12 09:39 | disposition home or self-care (01) | DRG 774 ==
LOC: YASAS 09:12 → Y3N 12:51
PROC: HZ2ZZZZ Detoxification Services for Substance Abuse Treatment (ICD-10-PCS; principal; 2017-11-08)
DX: F10.230 Alcohol dependence with withdrawal, uncomplicated (principal); F14.20 Cocaine dependence, uncomplicated; F16.20 Hallucinogen dependence, uncomplicated; F17.213 Nicotine dependence, cigarettes, with withdrawal; F19.24 Other psychoactive substance dependence with psychoactive substance-induced mood disorder; F31.9 Bipolar disorder, unspecified; F32.9 Major depressive disorder, single episode, unspecified; G47.00 Insomnia, unspecified; E86.0 Dehydration; I10 Essential (primary) hypertension; R76.11 Nonspecific reaction to tuberculin skin test without active tuberculosis; Z91.5 Personal history of self-harm
CPT/HCPCS: 36415; 80053; 81003; 81015; 85027; 86593; 93005; 93010; J0735

== ENCOUNTER 2017-12-17 12:36 | Inpatient (IN) | payer OTHER ==
[2017-12-17 13:40] VITALS: BMI 28.6
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
[2017-12-17] MEDS ORDERED: guaiFENesin/D-METHORPHAN HB 10 ML UNIT-DOSE CUPS PO PRN (16:29)
[2017-12-17] MEDS ORDERED: P-EPHED 60MG/TRIPROLIDI 2.5MG TABLET PO PRN (16:29)
[2017-12-17] MEDS ORDERED: MAGNESIUM CITRATE 300 ML BOTTLE PO PRN (16:29)
[2017-12-17] MEDS ORDERED: LOPERAMIDE HCL 2 MG CAPSULE PO PRN (16:29)
[2017-12-17] MEDS ORDERED: MAGNESIUM HYDROX 2400MG/30ML ORAL SUSPENSION 30 ML CUP PO PRN (16:29)
[2017-12-17] MEDS ORDERED: MAG HYDROX/AL HYDROX/SIMETH 30 ML UNIT-DOSE CUP PO PRN (16:29)
[2017-12-17] MEDS ORDERED: chlordiazePOXIDE HCL 25 MG CAPSULE PO PRN (16:29)
[2017-12-17] MEDS ORDERED: MENTHOL/PHENOL 1 EACH UD MM PRN (16:29)
[2017-12-17] MEDS ORDERED: amLODIPine BESYLATE 10 MG TABLET (FP) PO SCH (16:45)
[2017-12-17] MEDS: amLODIPine BESYLATE 10 MG TABLET (FP) PO SCH (20:15)
[2017-12-17] MEDS ORDERED: MELATONIN 5 MG TABLETS PO PRN (22:00)
[2017-12-17] MEDS: chlordiazePOXIDE HCL 25 MG CAPSULE PO SCH (23:00)
[2017-12-17] MEDS: THIAMINE HCL 100 MG TABLET (FP) PO SCH (23:00)
[2017-12-18] MEDS: chlordiazePOXIDE HCL 25 MG CAPSULE PO SCH ×4 (05:30→22:34)
[2017-12-18] MEDS: amLODIPine BESYLATE 10 MG TABLET (FP) PO SCH (09:39)
[2017-12-18] MEDS: PRENATAL VITAMINS W/ FOLIC ACID TABLET (FP) PO SCH (09:39)
--- NOTE | 2017-12-18 09:50 | EKG ---
Test Reason : Blood Pressure : / mmHG Vent. Rate : 070 BPM Atrial Rate : 070 BPM P-R Int : 156 ms QRS Dur : 138 ms QT Int : 428 ms P-R-T Axes : 052 058 040 degrees QTc Int : 462 ms NORMAL SINUS RHYTHM RIGHT BUNDLE BRANCH BLOCK ABNORMAL ECG WHEN COMPARED WITH ECG OF 08-NOV-2017 13:48, NO SIGNIFICANT CHANGE WAS FOUND Confirmed by STELLA GREENWOOD MD ([id number]) on 12/18/2017 9:50:07 AM Referred By: Confirmed By:STELLA GREENWOOD MD
[2017-12-18 10:11] LABS: HEMATOCRIT 38.2 % (35.4-49); HEMOGLOBIN 12.5 GM/dL (11.7-16.9); MCH 29.4 pg (25.7-33.7); MCHC 32.8 g/dl (32.0-35.9); MEAN CELL VOLUME 89.6 fl (80-96); MEAN PLT VOLUME 9.4 fl (7.5-11.1); PLATELET COUNT 169 K/MM3 (134-434); RBC 4.27 M/mm3 (4.00-5.60); RDW 13.8 % (11.9-15.9)
[2017-12-18 10:18] LABS: URINE APPEARANCE CLEAR; URINE BILIRUBIN NEGATIVE (<2.0 mg/dL); URINE COLOR LTYELLOW; URINE GLUCOSE (UA) NEGATIVE (NEGATIVE); URINE KETONE NEGATIVE (NEGATIVE); URINE LEUK ESTERASE NEGATIVE (NEGATIVE); URINE NITRITE NEGATIVE (NEGATIVE); URINE PROTEIN NEGATIVE (NEGATIVE); URINE UROBILINOGEN NEGATIVE mg/dL (0.2-1.0)
[2017-12-18 10:54] LABS: ALBUMIN 3.2 g/dl (3.4-5.0); ALK PHOS 104 U/L (45-117); ANION GAP 8 MMOL/L (8-16); BILIRUBIN,TOTAL 0.3 mg/dL (0.2-1); BLOOD UREA NITROGEN 11 mg/dL (7-18); CALCIUM 8.3 mg/dL (8.5-10.1); CHLORIDE 108 mmol/L (98-107); CO2 25 mmol/L (21-32); GLUCOSE,RANDOM 76 mg/dL (74-106); POTASSIUM 3.5 mmol/L (3.5-5.1); SGOT/AST 29 U/L (15-37); SGPT/ALT 33 U/L (13-61); SODIUM 141 mmol/L (136-145); TOT PROT 6.6 g/dl (6.4-8.2)
--- NOTE | 2017-12-18 10:55 | PN ---
S CIWA - CIWA Score Nausea/Vomitin-Mild Nausea/No Vomiting Muscle Tremors: 3 Anxiety: 3 Agitation: 4-Moderately Restless Paroxysmal Sweats: No Perspiration Orientation: 0-Oriented Tacttile Disturbances: 0-None Auditory Disturbances: 0-None Visual Disturbances: 0-None Headache: 3-Moderate CIWA-Ar Total Score: 14 BHS Progress Note (SOAP) Subjective: PATIENT IRRITABLE AND ANXIOUS. STATES " I WANT TO BE LEFT ALONE". +INSOMNIA AND SHAKES. Objective: 12/18/17 10:54 Vital Signs Temperature 97.9 F 12/18/17 09:40 Pulse Rate 84 12/18/17 09:40 Respiratory Rate 18 12/18/17 09:40 Blood Pressure 102/70 12/18/17 09:40 O2 Sat by Pulse Oximetry (%) Laboratory Tests 12/18/17 12/18/17 12/18/17 07:30 07:30 08:30 WBC 5.0 RBC 4.27 Hgb 12.5 Hct 38.2 MCV 89.6 MCH 29.4 MCHC 32.8 RDW 13.8 Plt Count 169 MPV 9.4 D Sodium 141 Potassium 3.5 Chloride 108 H Carbon Dioxide 25 Anion Gap 8 BUN 11 Creatinine 1.0 Creat Clearance w eGFR > 60 Random Glucose 76 Calcium 8.3 L Total Bilirubin 0.3 AST 29 ALT 33 Alkaline Phosphatase 104 Total Protein 6.6 Albumin 3.2 L Urine Color Ltyellow Urine Appearance Clear Urine pH 5.0 Ur Specific [place] 1.024 Urine Protein Negative Urine Glucose (UA) Negative Urine Ketones Negative Urine Blood Negative Urine Nitrite Negative Urine Bilirubin Negative Urine Urobilinogen Negative Ur Leukocyte Esterase Negative SKIN WARM AND DRY ALERT AND ORIENTED X 3 AMB AD TOMAS IRRITABLE Assessment: 12/18/17 10:55 WITHDRAWAL SYNDROME Plan: CONTINUE DETOX ENCOURAGE FLUIDS CONTINUE TO MONITOR
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
[2017-12-18] MEDS ORDERED: traZODone HCL 50 MG TABLET (FP) PO SCH (22:00)
[2017-12-18] MEDS ORDERED: QUEtiapine FUMARATE 100 MG TABLET (FP) PO SCH (22:00)
[2017-12-18] MEDS: THIAMINE HCL 100 MG TABLET (FP) PO SCH (22:34)
[2017-12-19] MEDS: chlordiazePOXIDE HCL 25 MG CAPSULE PO SCH ×4 (05:32→17:32)
[2017-12-19] MEDS: PRENATAL VITAMINS W/ FOLIC ACID TABLET (FP) PO SCH (11:02)
[2017-12-19] MEDS: amLODIPine BESYLATE 10 MG TABLET (FP) PO SCH (11:02)
--- NOTE | 2017-12-19 11:29 | PN ---
S CIWA - CIWA Score Nausea/Vomitin-No Nausea/No Vomiting Muscle Tremors: None Anxiety: 2 Agitation: 0-Normal Activity Paroxysmal Sweats: 2 Orientation: 0-Oriented Tacttile Disturbances: 0-None Auditory Disturbances: 0-None Visual Disturbances: 0-None Headache: 2-Mild CIWA-Ar Total Score: 6 BHS Progress Note (SOAP) Subjective: PATIENT C/O MILD SWEATING, ANXIETY AND HEADACHE. Objective: 12/19/17 11:27 Vital Signs Temperature 97 F L 12/19/17 10:18 Pulse Rate 64 12/19/17 10:18 Respiratory Rate 18 12/19/17 10:18 Blood Pressure 120/79 12/19/17 10:18 O2 Sat by Pulse Oximetry (%) Laboratory Tests 12/18/17 12/18/17 12/18/17 07:30 07:30 07:30 WBC 5.0 RBC 4.27 Hgb 12.5 Hct 38.2 MCV 89.6 MCH 29.4 MCHC 32.8 RDW 13.8 Plt Count 169 MPV 9.4 D Sodium 141 Potassium 3.5 Chloride 108 H Carbon Dioxide 25 Anion Gap 8 BUN 11 Creatinine 1.0 Creat Clearance w eGFR > 60 Random Glucose 76 Calcium 8.3 L Total Bilirubin 0.3 AST 29 ALT 33 Alkaline Phosphatase 104 Total Protein 6.6 Albumin 3.2 L Urine Color Urine Appearance Urine pH Ur Specific [place] Urine Protein Urine Glucose (UA) Urine Ketones Urine Blood Urine Nitrite Urine Bilirubin Urine Urobilinogen Ur Leukocyte Esterase RPR Titer Nonreactive 12/18/17 08:30 WBC RBC Hgb Hct MCV MCH MCHC RDW Plt Count MPV Sodium Potassium Chloride Carbon Dioxide Anion Gap BUN Creatinine Creat Clearance w eGFR Random Glucose Calcium Total Bilirubin AST ALT Alkaline Phosphatase Total Protein Albumin Urine Color Ltyellow Urine Appearance Clear Urine pH 5.0 Ur Specific [place] 1.024 Urine Protein Negative Urine Glucose (UA) Negative Urine Ketones Negative Urine Blood Negative Urine Nitrite Negative Urine Bilirubin Negative Urine Urobilinogen Negative Ur Leukocyte Esterase Negative RPR Titer SKIN WARM, MILD FACIAL MOISTURE ALERT AND ORIENTED X 3 AMB AD TOMAS EXT FULL ROM Assessment: 12/19/17 11:28 WITHDRAWAL SYNDROME Plan: CONTINUE DETOX ENCOURAGE ORAL FLUIDS CONTINUE TO MONITOR CLINICALLY
[2017-12-19 18:10] VITALS: BP 138/89; PULSE 78; TEMP 97.4
[2017-12-19] MEDS ORDERED: chlordiazePOXIDE 5 MG CAPSULE PO SCH (23:00)
[2017-12-20] MEDS ORDERED: chlordiazePOXIDE HCL 10 MG CAPSULE PO SCH (23:00)
== END 2017-12-19 18:21 | disposition left against medical advice (07) | DRG 770 ==
LOC: YASAS 12:36 → Y3N 17:31
PROC: HZ2ZZZZ Detoxification Services for Substance Abuse Treatment (ICD-10-PCS; principal; 2017-12-17)
DX: F10.230 Alcohol dependence with withdrawal, uncomplicated (principal); F14.20 Cocaine dependence, uncomplicated; F12.20 Cannabis dependence, uncomplicated; F16.20 Hallucinogen dependence, uncomplicated; F19.24 Other psychoactive substance dependence with psychoactive substance-induced mood disorder; I10 Essential (primary) hypertension; G47.00 Insomnia, unspecified; Z87.891 Personal history of nicotine dependence; Z91.14 Patient's other noncompliance with medication regimen; Z88.6 Allergy status to analgesic agent; Z91.5 Personal history of self-harm
CPT/HCPCS: 36415; 71046-TC-FY; 80053; 81003; 85027; 86593; 93005; 93010

== ENCOUNTER 2020-10-31 15:32 | Inpatient (IN) | payer OTHER ==
[2020-10-31 18:06] VITALS: BMI 27.6
[2020-10-31] MEDS ORDERED: MAGNESIUM CITRATE 300 ML BOTTLE PO PRN (21:13)
[2020-10-31] MEDS ORDERED: ONDANSETRON *ODT* 4 MG TABLET SL PRN (21:13)
[2020-10-31] MEDS ORDERED: NICOTINE 10 MG CARTRIDGE (INHALER) IH PRN (21:13)
[2020-10-31] MEDS ORDERED: diazePAM 5 MG TABLET PO ONE (21:13)
[2020-10-31] MEDS ORDERED: BISMUTH SUBSALICYLATE 524 MG/30 ML PO PRN (21:13)
[2020-10-31] MEDS ORDERED: MENTHOL/PHENOL 1 EACH UD MM PRN (21:13)
[2020-10-31] MEDS ORDERED: NICOTINE POLACRILEX 2 MG GUM BUC PRN (21:13)
[2020-10-31] MEDS ORDERED: MAGNESIUM HYDROX 2400MG/30ML ORAL SUSPENSION 30 ML CUP PO PRN (21:13)
[2020-10-31] MEDS ORDERED: MAG HYDROX/AL HYDROX/SIMETH 30 ML UNIT-DOSE CUP PO PRN (21:13)
[2020-10-31] MEDS ORDERED: diazePAM 5 MG TABLET PO PRN (21:13)
[2020-10-31] MEDS ORDERED: hydrOXYzine PAMOATE 25 MG CAPSULE (FP) PO ONE (23:18)
[2020-10-31] MEDS ORDERED: diazePAM 5 MG TABLET ONE (23:18)
[2020-10-31] MEDS: MELATONIN 5 MG TABLETS PO SCH (23:20)
[2020-10-31] MEDS: PRENATAL VITAMINS W/ FOLIC ACID TABLET (FP) PO SCH (23:20)
[2020-10-31] MEDS: hydrOXYzine PAMOATE 25 MG CAPSULE (FP) PO SCH (23:20)
[2020-10-31] MEDS: diazePAM 5 MG TABLET PO SCH (23:21)
[2020-10-31] MEDS: THIAMINE HCL 100 MG TABLET (FP) PO SCH (23:21)
[2020-10-31] MEDS ORDERED: amLODIPine BESYLATE 5 MG TABLET (FP) ONE (23:23)
[2020-10-31] MEDS: amLODIPine BESYLATE 10 MG TABLET (FP) PO SCH (23:24)
[2020-11-01] MEDS: diazePAM 5 MG TABLET PO SCH ×4 (06:15→22:31)
[2020-11-01] MEDS: hydrOXYzine PAMOATE 25 MG CAPSULE (FP) PO SCH ×2 (06:16→10:41)
[2020-11-01] MEDS: NICOTINE 7 MG/24 HOURS TOPICAL PATCH TD SCH (10:40)
[2020-11-01] MEDS: amLODIPine BESYLATE 10 MG TABLET (FP) PO SCH (10:41)
[2020-11-01] MEDS: PRENATAL VITAMINS W/ FOLIC ACID TABLET (FP) PO SCH (10:42)
[2020-11-01 11:38] LABS: HEMATOCRIT 40.8 % (35.4-49); MCH 31.6 pg (25.7-33.7); MCHC 34.4 g/dl (32.0-35.9); MEAN CELL VOLUME 91.8 fl (80-96); MEAN PLT VOLUME 10.8 fl (7.5-11.1); PLATELET COUNT 128 10^3/uL (134-434); RBC 4.44 M/mm3 (4.00-5.60); RDW 13.9 % (11.9-15.9); WHITE BLOOD COUNT 4.2 K/mm3 (4.0-10.0)
[2020-11-01 11:47] LABS: BLOOD UREA NITROGEN 17.4 mg/dL (7-18)
[2020-11-01 11:49] LABS: CALCIUM 8.3 mg/dL (8.5-10.1)
[2020-11-01 11:50] LABS: ALBUMIN 3.3 g/dl (3.4-5.0)
[2020-11-01 11:53] LABS: CREATININE 1.2 mg/dL (0.55-1.3)
[2020-11-01 11:54] LABS: BILIRUBIN,TOTAL 0.4 mg/dL (0.2-1); TOT PROT 6.5 g/dl (6.4-8.2)
[2020-11-01] MEDS ORDERED: hydrOXYzine PAMOATE 25 MG CAPSULE (FP) PO PRN (13:01)
[2020-11-01] MEDS: POTASSIUM CHLORIDE TABS 20 MEQ TABLET.ER (FP) PO SCH (14:46)
[2020-11-01] MEDS: METHOCARBAMOL 500 MG TABLET PO PRN (17:20)
[2020-11-01] MEDS: QUEtiapine FUMARATE 100 MG TABLET (FP) PO SCH (22:30)
[2020-11-01] MEDS: THIAMINE HCL 100 MG TABLET (FP) PO SCH (22:30)
[2020-11-01] MEDS: MELATONIN 5 MG TABLETS PO SCH (22:30)
[2020-11-02] MEDS: diazePAM 5 MG TABLET PO SCH ×3 (05:58→22:56)
[2020-11-02] MEDS: NICOTINE 7 MG/24 HOURS TOPICAL PATCH TD SCH (10:55)
[2020-11-02] MEDS: amLODIPine BESYLATE 10 MG TABLET (FP) PO SCH (10:58)
[2020-11-02] MEDS: PRENATAL VITAMINS W/ FOLIC ACID TABLET (FP) PO SCH (10:58)
[2020-11-02] MEDS: POTASSIUM CHLORIDE TABS 20 MEQ TABLET.ER (FP) PO SCH (10:58)
[2020-11-02 14:02] LABS: HIV INTERPRETATION NEGATIVE (NEGATIVE)
[2020-11-02] MEDS: QUEtiapine FUMARATE 100 MG TABLET (FP) PO SCH (22:54)
[2020-11-02] MEDS: THIAMINE HCL 100 MG TABLET (FP) PO SCH (22:54)
[2020-11-02] MEDS: MELATONIN 5 MG TABLETS PO SCH (22:56)
[2020-11-03] MEDS: diazePAM 5 MG TABLET PO SCH ×2 (05:59→17:48)
[2020-11-03] MEDS: POTASSIUM CHLORIDE TABS 20 MEQ TABLET.ER (FP) PO SCH (10:04)
[2020-11-03] MEDS: amLODIPine BESYLATE 10 MG TABLET (FP) PO SCH (10:04)
[2020-11-03] MEDS: PRENATAL VITAMINS W/ FOLIC ACID TABLET (FP) PO SCH (10:04)
[2020-11-03] MEDS: NICOTINE 7 MG/24 HOURS TOPICAL PATCH TD SCH (10:05)
[2020-11-03] MEDS: MELATONIN 5 MG TABLETS PO SCH (22:25)
[2020-11-03] MEDS: QUEtiapine FUMARATE 100 MG TABLET (FP) PO SCH (22:25)
[2020-11-03] MEDS: METHOCARBAMOL 500 MG TABLET PO PRN (22:25)
[2020-11-03] MEDS: THIAMINE HCL 100 MG TABLET (FP) PO SCH (22:25)
[2020-11-04] MEDS ORDERED: diazePAM 5 MG TABLET PO ONE (06:00)
[2020-11-04 08:56] VITALS: BP 108/64; PULSE 73; TEMP 97.2
== END 2020-11-04 09:10 | disposition other institution (70) | DRG 774 ==
LOC: YASAS 15:32 → Y3N 21:56
PROVIDERS: ADMIT Allergy & Immunology; ATTEND Allergy & Immunology
PROC: HZ2ZZZZ Detoxification Services for Substance Abuse Treatment (ICD-10-PCS; principal; 2020-10-31)
DX: F10.230 Alcohol dependence with withdrawal, uncomplicated (principal); F14.20 Cocaine dependence, uncomplicated; F16.20 Hallucinogen dependence, uncomplicated; F17.210 Nicotine dependence, cigarettes, uncomplicated; F31.9 Bipolar disorder, unspecified; F10.282 Alcohol dependence with alcohol-induced sleep disorder; F10.24 Alcohol dependence with alcohol-induced mood disorder; I10 Essential (primary) hypertension; E87.6 Hypokalemia; K42.9 Umbilical hernia without obstruction or gangrene; Z88.6 Allergy status to analgesic agent
CPT/HCPCS: 36415; 71046-TC-FY; 80053; 85027; 86780; 87389; C9803; U0003; U0005

== ENCOUNTER 2021-01-16 10:57 | Inpatient (IN) | payer OTHER ==
[2021-01-16] MEDS ORDERED: IBUPROFEN 400 MG TABLET (FP) PO PRN (12:11)
[2021-01-16] MEDS ORDERED: MAGNESIUM HYDROX 2400MG/30ML ORAL SUSPENSION 30 ML CUP PO PRN (12:11)
[2021-01-16] MEDS ORDERED: MAGNESIUM CITRATE 300 ML BOTTLE PO PRN (12:11)
[2021-01-16] MEDS ORDERED: BISMUTH SUBSALICYLATE 262 MG/15 ML BTL PO PRN (12:11)
[2021-01-16] MEDS ORDERED: MENTHOL/PHENOL 1 EACH UD MM PRN (12:11)
[2021-01-16] MEDS ORDERED: ACETAMINOPHEN 325 MG TABLET (FP) PO PRN ×2 (12:11)
[2021-01-16] MEDS ORDERED: ONDANSETRON *ODT* 4 MG TABLET SL PRN (12:11)
[2021-01-16 12:30] VITALS: BMI 31.4
[2021-01-16] MEDS: hydrOXYzine PAMOATE 25 MG CAPSULE (FP) PO SCH ×3 (13:42→21:13)
[2021-01-16] MEDS: diazePAM 5 MG TABLET PO PRN (13:43)
[2021-01-16 17:06] LABS: HEMATOCRIT 36.5 % (35.4-49); HEMOGLOBIN 12.8 GM/dL (11.7-16.9); MCH 30.7 pg (25.7-33.7); MCHC 35.1 g/dl (32.0-35.9); MEAN CELL VOLUME 87.5 fl (80-96); MEAN PLT VOLUME 8.4 fl (7.5-11.1); PLATELET COUNT 228 10^3/uL (134-434); RBC 4.18 M/mm3 (4.00-5.60); RDW 13.9 % (11.9-15.9); WHITE BLOOD COUNT 7.8 K/mm3 (4.0-10.0)
[2021-01-16 17:17] LABS: ALBUMIN 3.8 g/dl (3.4-5.0); BLOOD UREA NITROGEN 23.7 mg/dL (7-18); CALCIUM 9.1 mg/dL (8.5-10.1)
[2021-01-16 17:19] LABS: CREATININE 1.4 mg/dL (0.55-1.3)
[2021-01-16 17:21] LABS: BILIRUBIN,TOTAL 0.4 mg/dL (0.2-1); TOT PROT 7.7 g/dl (6.4-8.2)
[2021-01-16] MEDS: diazePAM 5 MG TABLET PO SCH ×2 (18:00→22:25)
[2021-01-16] MEDS: MELATONIN 5 MG TABLETS PO SCH (21:13)
[2021-01-16] MEDS: THIAMINE HCL 100 MG TABLET (FP) PO SCH (21:13)
[2021-01-16] MEDS ORDERED: QUEtiapine FUMARATE 100 MG TABLET (FP) PO SCH (22:00)
[2021-01-16] MEDS: NICOTINE 10 MG CARTRIDGE (INHALER) IH PRN (22:36)
[2021-01-17] MEDS: hydrOXYzine PAMOATE 25 MG CAPSULE (FP) PO SCH ×5 (05:37→22:01)
[2021-01-17] MEDS: diazePAM 5 MG TABLET PO SCH ×4 (05:37→22:03)
[2021-01-17] MEDS: NICOTINE 10 MG CARTRIDGE (INHALER) IH PRN (05:45)
[2021-01-17] MEDS: metFORMIN HCL 500 MG TABLET (FP) PO SCH (06:11)
[2021-01-17] MEDS: PRENATAL VITAMINS W/ FOLIC ACID TABLET (FP) PO SCH (10:06)
[2021-01-17] MEDS: amLODIPine BESYLATE 10 MG TABLET (FP) PO SCH (10:06)
[2021-01-17] MEDS: METHOCARBAMOL 500 MG TABLET PO PRN ×3 (10:06→22:02)
[2021-01-17] MEDS: LISINOPRIL 20 MG TABLET PO SCH (13:27)
[2021-01-17] MEDS: MELATONIN 5 MG TABLETS PO SCH (22:01)
[2021-01-17] MEDS: THIAMINE HCL 100 MG TABLET (FP) PO SCH (22:02)
[2021-01-17] MEDS: QUEtiapine FUMARATE 100 MG TABLET (FP) PO SCH (22:02)
[2021-01-18] MEDS: diazePAM 5 MG TABLET PO SCH ×3 (05:54→22:02)
[2021-01-18] MEDS: hydrOXYzine PAMOATE 25 MG CAPSULE (FP) PO SCH ×5 (05:54→22:02)
[2021-01-18] MEDS: METHOCARBAMOL 500 MG TABLET PO PRN ×2 (05:55→17:43)
[2021-01-18] MEDS: metFORMIN HCL 500 MG TABLET (FP) PO SCH (06:05)
[2021-01-18] MEDS: NICOTINE 10 MG CARTRIDGE (INHALER) IH PRN (08:40)
[2021-01-18] MEDS: PRENATAL VITAMINS W/ FOLIC ACID TABLET (FP) PO SCH (10:00)
[2021-01-18] MEDS: LISINOPRIL 20 MG TABLET PO SCH ×2 (10:00→22:02)
[2021-01-18] MEDS: amLODIPine BESYLATE 10 MG TABLET (FP) PO SCH (10:00)
[2021-01-18] MEDS: diazePAM 5 MG TABLET PO PRN (10:01)
[2021-01-18 11:02] LABS: BLOOD UREA NITROGEN 11.4 mg/dL (7-18); CALCIUM 8.8 mg/dL (8.5-10.1)
[2021-01-18 11:05] LABS: PHOSPHOROUS 4.2 mg/dL (2.5-4.9)
[2021-01-18 11:27] LABS: URINE APPEARANCE CLEAR; URINE BILIRUBIN NEGATIVE (NEGATIVE); URINE COLOR YELLOW; URINE GLUCOSE (UA) NEGATIVE (NEGATIVE); URINE KETONE NEGATIVE (NEGATIVE); URINE LEUK ESTERASE NEGATIVE (NEGATIVE); URINE NITRITE NEGATIVE (NEGATIVE); URINE PROTEIN NEGATIVE (NEGATIVE); URINE UROBILINOGEN 0.2 mg/dL (0.2-1.0)
[2021-01-18] MEDS: QUEtiapine FUMARATE 50 MG TABLET PO SCH (14:15)
[2021-01-18] MEDS: MELATONIN 5 MG TABLETS PO SCH (22:01)
[2021-01-18] MEDS: QUEtiapine FUMARATE 100 MG TABLET (FP) PO SCH (22:02)
[2021-01-18] MEDS: THIAMINE HCL 100 MG TABLET (FP) PO SCH (22:02)
[2021-01-19] MEDS: MAG HYDROX/AL HYDROX/SIMETH 30 ML UNIT-DOSE CUP PO PRN ×2 (01:39→14:47)
[2021-01-19] MEDS: diazePAM 5 MG TABLET PO SCH ×2 (05:47→17:24)
[2021-01-19] MEDS: hydrOXYzine PAMOATE 25 MG CAPSULE (FP) PO SCH ×5 (05:48→21:04)
[2021-01-19] MEDS: METHOCARBAMOL 500 MG TABLET PO PRN ×2 (05:49→17:24)
[2021-01-19] MEDS: metFORMIN HCL 500 MG TABLET (FP) PO SCH (06:10)
[2021-01-19] MEDS: amLODIPine BESYLATE 10 MG TABLET (FP) PO SCH (10:10)
[2021-01-19] MEDS: QUEtiapine FUMARATE 50 MG TABLET PO SCH (10:10)
[2021-01-19] MEDS: PRENATAL VITAMINS W/ FOLIC ACID TABLET (FP) PO SCH (10:10)
[2021-01-19] MEDS: LISINOPRIL 20 MG TABLET PO SCH ×2 (10:11→21:04)
[2021-01-19] MEDS: diazePAM 5 MG TABLET PO PRN (11:06)
[2021-01-19] MEDS: MELATONIN 5 MG TABLETS PO SCH (21:04)
[2021-01-19] MEDS: THIAMINE HCL 100 MG TABLET (FP) PO SCH (21:04)
[2021-01-19] MEDS: QUEtiapine FUMARATE 100 MG TABLET (FP) PO SCH (21:04)
[2021-01-20] MEDS: METHOCARBAMOL 500 MG TABLET PO PRN (01:30)
[2021-01-20] MEDS: hydrOXYzine PAMOATE 25 MG CAPSULE (FP) PO SCH ×2 (05:15→10:03)
[2021-01-20] MEDS: NICOTINE 10 MG CARTRIDGE (INHALER) IH PRN (05:56)
[2021-01-20] MEDS ORDERED: diazePAM 5 MG TABLET PO ONE (06:00)
[2021-01-20] MEDS: metFORMIN HCL 500 MG TABLET (FP) PO SCH (06:01)
[2021-01-20 09:08] VITALS: BP 131/69; PULSE 82; TEMP 98.2
[2021-01-20] MEDS: PRENATAL VITAMINS W/ FOLIC ACID TABLET (FP) PO SCH (10:02)
[2021-01-20] MEDS: LISINOPRIL 20 MG TABLET PO SCH (10:03)
[2021-01-20] MEDS: QUEtiapine FUMARATE 50 MG TABLET PO SCH (10:03)
[2021-01-20] MEDS: amLODIPine BESYLATE 10 MG TABLET (FP) PO SCH (10:03)
== END 2021-01-20 12:16 | disposition other institution (70) | DRG 774 ==
LOC: YASAS 10:57 → Y3N 12:40 → Y6N 21:50
PROVIDERS: ADMIT Allergy & Immunology; ATTEND Allergy & Immunology
PROC: HZ2ZZZZ Detoxification Services for Substance Abuse Treatment (ICD-10-PCS; principal; 2021-01-16)
DX: F10.230 Alcohol dependence with withdrawal, uncomplicated (principal); F14.20 Cocaine dependence, uncomplicated; F16.20 Hallucinogen dependence, uncomplicated; F12.20 Cannabis dependence, uncomplicated; F31.9 Bipolar disorder, unspecified; F19.282 Other psychoactive substance dependence with psychoactive substance-induced sleep disorder; F19.24 Other psychoactive substance dependence with psychoactive substance-induced mood disorder; G47.00 Insomnia, unspecified; I10 Essential (primary) hypertension; E11.9 Type 2 diabetes mellitus without complications; Z79.84 Long term (current) use of oral hypoglycemic drugs; R76.11 Nonspecific reaction to tuberculin skin test without active tuberculosis; Z88.6 Allergy status to analgesic agent
CPT/HCPCS: 36415; 80053; 80069; 81003; 82962; 85027; 86780; C9803; U0003; U0005

== ENCOUNTER 2021-01-20 12:24 | Inpatient (IN) | payer OTHER ==
[2021-01-20] MEDS ORDERED: guaiFENesin 200 MG/10 ML 10 ML UNIT-DOSE CUPS PO PRN (13:25)
[2021-01-20] MEDS ORDERED: MENTHOL/PHENOL 1 EACH UD MM PRN (13:25)
[2021-01-20] MEDS ORDERED: MAGNESIUM HYDROX 2400MG/30ML ORAL SUSPENSION 30 ML CUP PO PRN (13:25)
[2021-01-20] MEDS ORDERED: MAGNESIUM CITRATE 300 ML BOTTLE PO PRN (13:25)
[2021-01-20] MEDS ORDERED: MAG HYDROX/AL HYDROX/SIMETH 30 ML UNIT-DOSE CUP PO PRN (13:25)
[2021-01-20] MEDS ORDERED: P-EPHED 60MG/TRIPROLIDI 2.5MG TABLET PO PRN (13:25)
[2021-01-20] MEDS ORDERED: LOPERAMIDE HCL 2 MG CAPSULE PO PRN (13:25)
[2021-01-20] MEDS ORDERED: ACETAMINOPHEN 325 MG TABLET (FP) PO PRN (13:25)
[2021-01-20] MEDS ORDERED: NICOTINE 10 MG CARTRIDGE (INHALER) IH PRN (13:25)
[2021-01-20] MEDS: hydrOXYzine PAMOATE 25 MG CAPSULE (FP) PO SCH ×3 (14:17→21:15)
[2021-01-20] MEDS: COLLOIDAL OATMEAL 1 BAR EACH TP PRN (14:18)
[2021-01-20] MEDS: MELATONIN 5 MG TABLETS PO SCH (21:15)
[2021-01-20] MEDS: LISINOPRIL 20 MG TABLET PO SCH (21:16)
[2021-01-20] MEDS: THIAMINE HCL 100 MG TABLET (FP) PO SCH (21:16)
[2021-01-21] MEDS ORDERED: QUEtiapine FUMARATE 100 MG TABLET (FP) PO ONE (00:21)
[2021-01-21] MEDS: hydrOXYzine PAMOATE 25 MG CAPSULE (FP) PO SCH ×5 (06:48→21:46)
[2021-01-21] MEDS: metFORMIN HCL 500 MG TABLET (FP) PO SCH (06:48)
[2021-01-21] MEDS: COLLOIDAL OATMEAL 1 BAR EACH TP PRN (06:49)
[2021-01-21] MEDS: amLODIPine BESYLATE 10 MG TABLET (FP) PO SCH (09:10)
[2021-01-21] MEDS: LISINOPRIL 20 MG TABLET PO SCH ×2 (09:10→21:09)
[2021-01-21] MEDS: NICOTINE 7 MG/24 HOURS TOPICAL PATCH TD SCH (09:10)
[2021-01-21] MEDS: PRENATAL VITAMINS W/ FOLIC ACID TABLET (FP) PO SCH (09:10)
[2021-01-21] MEDS: METHOCARBAMOL 500 MG TABLET PO PRN (10:39)
[2021-01-21] MEDS: QUEtiapine FUMARATE 50 MG TABLET PO SCH (10:39)
[2021-01-21] MEDS: THIAMINE HCL 100 MG TABLET (FP) PO SCH (21:08)
[2021-01-21] MEDS: MELATONIN 5 MG TABLETS PO SCH (21:08)
[2021-01-21] MEDS: QUEtiapine FUMARATE 100 MG TABLET (FP) PO SCH (21:10)
[2021-01-22] MEDS: hydrOXYzine PAMOATE 25 MG CAPSULE (FP) PO SCH ×5 (05:46→21:36)
[2021-01-22] MEDS: metFORMIN HCL 500 MG TABLET (FP) PO SCH (06:27)
[2021-01-22] MEDS: METHOCARBAMOL 500 MG TABLET PO PRN ×2 (07:26→16:52)
[2021-01-22] MEDS: QUEtiapine FUMARATE 50 MG TABLET PO SCH (10:02)
[2021-01-22] MEDS: LISINOPRIL 20 MG TABLET PO SCH ×2 (10:02→21:36)
[2021-01-22] MEDS: PRENATAL VITAMINS W/ FOLIC ACID TABLET (FP) PO SCH (10:02)
[2021-01-22] MEDS: NICOTINE 7 MG/24 HOURS TOPICAL PATCH TD SCH (10:02)
[2021-01-22] MEDS: amLODIPine BESYLATE 10 MG TABLET (FP) PO SCH (10:02)
[2021-01-22] MEDS: QUEtiapine FUMARATE 100 MG TABLET (FP) PO SCH (21:36)
[2021-01-22] MEDS: MELATONIN 5 MG TABLETS PO SCH (21:37)
[2021-01-22] MEDS: COLLOIDAL OATMEAL 1 BAR EACH TP PRN (21:38)
[2021-01-22] MEDS: THIAMINE HCL 100 MG TABLET (FP) PO SCH (21:40)
[2021-01-23] MEDS: hydrOXYzine PAMOATE 25 MG CAPSULE (FP) PO SCH ×5 (06:36→21:26)
[2021-01-23] MEDS: metFORMIN HCL 500 MG TABLET (FP) PO SCH (06:37)
[2021-01-23] MEDS: METHOCARBAMOL 500 MG TABLET PO PRN ×2 (06:37→21:24)
[2021-01-23] MEDS: LISINOPRIL 20 MG TABLET PO SCH ×2 (09:59→21:25)
[2021-01-23] MEDS: QUEtiapine FUMARATE 50 MG TABLET PO SCH (09:59)
[2021-01-23] MEDS: PRENATAL VITAMINS W/ FOLIC ACID TABLET (FP) PO SCH (10:00)
[2021-01-23] MEDS: amLODIPine BESYLATE 10 MG TABLET (FP) PO SCH (10:00)
[2021-01-23] MEDS: NICOTINE 7 MG/24 HOURS TOPICAL PATCH TD SCH (10:00)
[2021-01-23] MEDS: PANTOPRAZOLE 20 MG TABLET PO SCH ×2 (12:24→21:25)
[2021-01-23] MEDS: TOLNAFTATE 1% CREAM 15 GM TUBE TP SCH ×2 (14:17→21:20)
[2021-01-23] MEDS: THIAMINE HCL 100 MG TABLET (FP) PO SCH (21:24)
[2021-01-23] MEDS: COLLOIDAL OATMEAL 1 BAR EACH TP PRN (21:24)
[2021-01-23] MEDS: QUEtiapine FUMARATE 100 MG TABLET (FP) PO SCH (21:25)
[2021-01-23] MEDS: MELATONIN 5 MG TABLETS PO SCH (21:25)
[2021-01-24] MEDS: hydrOXYzine PAMOATE 25 MG CAPSULE (FP) PO SCH ×3 (06:53→15:09)
[2021-01-24] MEDS: METHOCARBAMOL 500 MG TABLET PO PRN (06:56)
[2021-01-24] MEDS: metFORMIN HCL 500 MG TABLET (FP) PO SCH (07:53)
[2021-01-24] MEDS: LISINOPRIL 20 MG TABLET PO SCH ×2 (10:18→21:09)
[2021-01-24] MEDS: PANTOPRAZOLE 20 MG TABLET PO SCH ×2 (10:18→21:09)
[2021-01-24] MEDS: QUEtiapine FUMARATE 50 MG TABLET PO SCH (10:18)
[2021-01-24] MEDS: NICOTINE 7 MG/24 HOURS TOPICAL PATCH TD SCH (10:18)
[2021-01-24] MEDS: amLODIPine BESYLATE 10 MG TABLET (FP) PO SCH (10:18)
[2021-01-24] MEDS: TOLNAFTATE 1% CREAM 15 GM TUBE TP SCH ×2 (10:19→21:08)
[2021-01-24] MEDS: PRENATAL VITAMINS W/ FOLIC ACID TABLET (FP) PO SCH (10:41)
[2021-01-24] MEDS: hydrOXYzine PAMOATE 25 MG CAPSULE (FP) PO PRN (14:15)
[2021-01-24] MEDS: QUEtiapine FUMARATE 100 MG TABLET (FP) PO SCH (21:09)
[2021-01-24] MEDS: THIAMINE HCL 100 MG TABLET (FP) PO SCH (21:09)
[2021-01-24] MEDS: MELATONIN 5 MG TABLETS PO SCH (21:09)
[2021-01-25] MEDS: NICOTINE 7 MG/24 HOURS TOPICAL PATCH TD SCH (09:39)
[2021-01-25] MEDS: LISINOPRIL 20 MG TABLET PO SCH ×2 (09:40→21:05)
[2021-01-25] MEDS: TOLNAFTATE 1% CREAM 15 GM TUBE TP SCH ×2 (09:40→21:05)
[2021-01-25] MEDS: QUEtiapine FUMARATE 50 MG TABLET PO SCH (09:40)
[2021-01-25] MEDS: PRENATAL VITAMINS W/ FOLIC ACID TABLET (FP) PO SCH (09:40)
[2021-01-25] MEDS: amLODIPine BESYLATE 10 MG TABLET (FP) PO SCH (09:40)
[2021-01-25] MEDS: PANTOPRAZOLE 20 MG TABLET PO SCH ×2 (09:40→21:05)
[2021-01-25] MEDS: METHOCARBAMOL 500 MG TABLET PO PRN ×2 (09:41→21:06)
[2021-01-25] MEDS ORDERED: PT OWN MED DRAWER 7, Y5N ONE (20:35)
[2021-01-25] MEDS: QUEtiapine FUMARATE 100 MG TABLET (FP) PO SCH (21:05)
[2021-01-25] MEDS: THIAMINE HCL 100 MG TABLET (FP) PO SCH (21:05)
[2021-01-25] MEDS: MELATONIN 5 MG TABLETS PO SCH (21:06)
[2021-01-26] MEDS: PANTOPRAZOLE 20 MG TABLET PO SCH ×2 (09:59→21:03)
[2021-01-26] MEDS: PRENATAL VITAMINS W/ FOLIC ACID TABLET (FP) PO SCH (09:59)
[2021-01-26] MEDS: amLODIPine BESYLATE 10 MG TABLET (FP) PO SCH (09:59)
[2021-01-26] MEDS: QUEtiapine FUMARATE 50 MG TABLET PO SCH (09:59)
[2021-01-26] MEDS: LISINOPRIL 20 MG TABLET PO SCH ×2 (09:59→21:03)
[2021-01-26] MEDS: NICOTINE 7 MG/24 HOURS TOPICAL PATCH TD SCH (10:00)
[2021-01-26] MEDS: TOLNAFTATE 1% CREAM 15 GM TUBE TP SCH ×2 (10:00→21:03)
[2021-01-26] MEDS: METHOCARBAMOL 500 MG TABLET PO PRN ×2 (10:02→21:03)
[2021-01-26] MEDS: QUEtiapine FUMARATE 100 MG TABLET (FP) PO SCH (21:03)
[2021-01-26] MEDS: MELATONIN 5 MG TABLETS PO SCH (21:03)
[2021-01-26] MEDS: THIAMINE HCL 100 MG TABLET (FP) PO SCH (21:03)
[2021-01-26] MEDS ORDERED: PT OWN MED DRAWER 7, Y5N ONE (21:55)
[2021-01-27] MEDS: METHOCARBAMOL 500 MG TABLET PO PRN ×2 (09:47→21:08)
[2021-01-27] MEDS: PANTOPRAZOLE 20 MG TABLET PO SCH ×2 (09:48→21:08)
[2021-01-27] MEDS: NICOTINE 7 MG/24 HOURS TOPICAL PATCH TD SCH (09:48)
[2021-01-27] MEDS: amLODIPine BESYLATE 10 MG TABLET (FP) PO SCH (09:48)
[2021-01-27] MEDS: QUEtiapine FUMARATE 50 MG TABLET PO SCH (09:48)
[2021-01-27] MEDS: PRENATAL VITAMINS W/ FOLIC ACID TABLET (FP) PO SCH (09:48)
[2021-01-27] MEDS: LISINOPRIL 20 MG TABLET PO SCH ×2 (09:48→21:08)
[2021-01-27] MEDS: TOLNAFTATE 1% CREAM 15 GM TUBE TP SCH ×2 (09:49→22:53)
[2021-01-27] MEDS: THIAMINE HCL 100 MG TABLET (FP) PO SCH (21:08)
[2021-01-27] MEDS: QUEtiapine FUMARATE 100 MG TABLET (FP) PO SCH (21:08)
[2021-01-27] MEDS: hydrOXYzine PAMOATE 25 MG CAPSULE (FP) PO PRN (21:08)
[2021-01-27] MEDS: MELATONIN 5 MG TABLETS PO SCH (21:10)
[2021-01-28] MEDS: METHOCARBAMOL 500 MG TABLET PO PRN ×2 (09:47→21:22)
[2021-01-28] MEDS: PANTOPRAZOLE 20 MG TABLET PO SCH ×2 (09:48→21:21)
[2021-01-28] MEDS: NICOTINE 7 MG/24 HOURS TOPICAL PATCH TD SCH (09:48)
[2021-01-28] MEDS: QUEtiapine FUMARATE 50 MG TABLET PO SCH (09:48)
[2021-01-28] MEDS: LISINOPRIL 20 MG TABLET PO SCH ×2 (09:48→21:23)
[2021-01-28] MEDS: amLODIPine BESYLATE 10 MG TABLET (FP) PO SCH (09:48)
[2021-01-28] MEDS: PRENATAL VITAMINS W/ FOLIC ACID TABLET (FP) PO SCH (09:48)
[2021-01-28] MEDS: TOLNAFTATE 1% CREAM 15 GM TUBE TP SCH ×2 (09:48→21:22)
[2021-01-28] MEDS: COLLOIDAL OATMEAL 1 BAR EACH TP PRN (15:41)
[2021-01-28] MEDS: THIAMINE HCL 100 MG TABLET (FP) PO SCH (21:21)
[2021-01-28] MEDS: QUEtiapine FUMARATE 100 MG TABLET (FP) PO SCH (21:21)
[2021-01-28] MEDS: MELATONIN 5 MG TABLETS PO SCH (21:22)
[2021-01-29] MEDS: METHOCARBAMOL 500 MG TABLET PO PRN ×2 (09:45→21:07)
[2021-01-29] MEDS: QUEtiapine FUMARATE 50 MG TABLET PO SCH (09:45)
[2021-01-29] MEDS: PANTOPRAZOLE 20 MG TABLET PO SCH ×2 (09:45→21:06)
[2021-01-29] MEDS: LISINOPRIL 20 MG TABLET PO SCH ×2 (09:45→21:06)
[2021-01-29] MEDS: TOLNAFTATE 1% CREAM 15 GM TUBE TP SCH ×2 (09:45→21:29)
[2021-01-29] MEDS: PRENATAL VITAMINS W/ FOLIC ACID TABLET (FP) PO SCH (09:46)
[2021-01-29] MEDS: amLODIPine BESYLATE 10 MG TABLET (FP) PO SCH (09:46)
[2021-01-29] MEDS: NICOTINE 7 MG/24 HOURS TOPICAL PATCH TD SCH (09:46)
[2021-01-29] MEDS: MELATONIN 5 MG TABLETS PO SCH (21:06)
[2021-01-29] MEDS: THIAMINE HCL 100 MG TABLET (FP) PO SCH (21:06)
[2021-01-29] MEDS: QUEtiapine FUMARATE 100 MG TABLET (FP) PO SCH (21:07)
[2021-01-30] MEDS: METHOCARBAMOL 500 MG TABLET PO PRN ×2 (09:29→21:00)
[2021-01-30] MEDS: LISINOPRIL 20 MG TABLET PO SCH ×2 (09:29→21:00)
[2021-01-30] MEDS: amLODIPine BESYLATE 10 MG TABLET (FP) PO SCH (09:30)
[2021-01-30] MEDS: NICOTINE 7 MG/24 HOURS TOPICAL PATCH TD SCH (09:30)
[2021-01-30] MEDS: QUEtiapine FUMARATE 50 MG TABLET PO SCH (09:30)
[2021-01-30] MEDS: PRENATAL VITAMINS W/ FOLIC ACID TABLET (FP) PO SCH (09:30)
[2021-01-30] MEDS: PANTOPRAZOLE 20 MG TABLET PO SCH ×2 (09:30→21:00)
[2021-01-30] MEDS: TOLNAFTATE 1% CREAM 15 GM TUBE TP SCH ×2 (09:31→21:00)
[2021-01-30] MEDS ORDERED: PT OWN MED DRAWER 7, Y5N ONE (20:38)
[2021-01-30] MEDS: THIAMINE HCL 100 MG TABLET (FP) PO SCH (21:00)
[2021-01-30] MEDS: hydrOXYzine PAMOATE 25 MG CAPSULE (FP) PO PRN (21:00)
[2021-01-30] MEDS: MELATONIN 5 MG TABLETS PO SCH (21:00)
[2021-01-30] MEDS: QUEtiapine FUMARATE 100 MG TABLET (FP) PO SCH (21:00)
[2021-01-31] MEDS: NICOTINE 7 MG/24 HOURS TOPICAL PATCH TD SCH (09:40)
[2021-01-31] MEDS: PANTOPRAZOLE 20 MG TABLET PO SCH ×2 (09:40→21:09)
[2021-01-31] MEDS: amLODIPine BESYLATE 10 MG TABLET (FP) PO SCH (09:40)
[2021-01-31] MEDS: QUEtiapine FUMARATE 50 MG TABLET PO SCH (09:40)
[2021-01-31] MEDS: LISINOPRIL 20 MG TABLET PO SCH ×2 (09:40→21:09)
[2021-01-31] MEDS: PRENATAL VITAMINS W/ FOLIC ACID TABLET (FP) PO SCH (09:40)
[2021-01-31] MEDS: TOLNAFTATE 1% CREAM 15 GM TUBE TP SCH ×2 (09:41→23:54)
[2021-01-31] MEDS: METHOCARBAMOL 500 MG TABLET PO PRN ×2 (09:41→21:09)
[2021-01-31] MEDS: QUEtiapine FUMARATE 100 MG TABLET (FP) PO SCH (21:09)
[2021-01-31] MEDS: THIAMINE HCL 100 MG TABLET (FP) PO SCH (21:09)
[2021-01-31] MEDS: hydrOXYzine PAMOATE 25 MG CAPSULE (FP) PO PRN (21:09)
[2021-01-31] MEDS: MELATONIN 5 MG TABLETS PO SCH (21:09)
[2021-02-01] MEDS: PANTOPRAZOLE 20 MG TABLET PO SCH ×2 (09:27→21:17)
[2021-02-01] MEDS: NICOTINE 7 MG/24 HOURS TOPICAL PATCH TD SCH (09:27)
[2021-02-01] MEDS: PRENATAL VITAMINS W/ FOLIC ACID TABLET (FP) PO SCH (09:27)
[2021-02-01] MEDS: QUEtiapine FUMARATE 50 MG TABLET PO SCH (09:27)
[2021-02-01] MEDS: LISINOPRIL 20 MG TABLET PO SCH ×2 (09:27→21:17)
[2021-02-01] MEDS: TOLNAFTATE 1% CREAM 15 GM TUBE TP SCH ×2 (09:27→21:17)
[2021-02-01] MEDS: amLODIPine BESYLATE 10 MG TABLET (FP) PO SCH (09:27)
[2021-02-01] MEDS: METHOCARBAMOL 500 MG TABLET PO PRN ×2 (09:28→21:17)
[2021-02-01] MEDS: THIAMINE HCL 100 MG TABLET (FP) PO SCH (21:17)
[2021-02-01] MEDS: MELATONIN 5 MG TABLETS PO SCH (21:17)
[2021-02-01] MEDS: QUEtiapine FUMARATE 100 MG TABLET (FP) PO SCH (21:17)
[2021-02-02] MEDS ORDERED: PT OWN MED DRAWER 7, Y5N ONE (08:43)
[2021-02-02] MEDS: PRENATAL VITAMINS W/ FOLIC ACID TABLET (FP) PO SCH (09:39)
[2021-02-02] MEDS: LISINOPRIL 20 MG TABLET PO SCH ×2 (09:39→21:32)
[2021-02-02] MEDS: QUEtiapine FUMARATE 50 MG TABLET PO SCH (09:39)
[2021-02-02] MEDS: PANTOPRAZOLE 20 MG TABLET PO SCH ×2 (09:39→21:33)
[2021-02-02] MEDS: amLODIPine BESYLATE 10 MG TABLET (FP) PO SCH (09:39)
[2021-02-02] MEDS: TOLNAFTATE 1% CREAM 15 GM TUBE TP SCH ×2 (09:40→21:32)
[2021-02-02] MEDS: NICOTINE 7 MG/24 HOURS TOPICAL PATCH TD SCH (09:40)
[2021-02-02] MEDS: METHOCARBAMOL 500 MG TABLET PO PRN (21:31)
[2021-02-02] MEDS: QUEtiapine FUMARATE 100 MG TABLET (FP) PO SCH (21:32)
[2021-02-02] MEDS: THIAMINE HCL 100 MG TABLET (FP) PO SCH (21:32)
[2021-02-02] MEDS: MELATONIN 5 MG TABLETS PO SCH (21:33)
[2021-02-03] MEDS: PANTOPRAZOLE 20 MG TABLET PO SCH ×2 (09:44→21:12)
[2021-02-03] MEDS: amLODIPine BESYLATE 10 MG TABLET (FP) PO SCH (09:44)
[2021-02-03] MEDS: NICOTINE 7 MG/24 HOURS TOPICAL PATCH TD SCH (09:44)
[2021-02-03] MEDS: QUEtiapine FUMARATE 50 MG TABLET PO SCH (09:44)
[2021-02-03] MEDS: LISINOPRIL 20 MG TABLET PO SCH ×2 (09:44→21:12)
[2021-02-03] MEDS: PRENATAL VITAMINS W/ FOLIC ACID TABLET (FP) PO SCH (09:44)
[2021-02-03] MEDS: TOLNAFTATE 1% CREAM 15 GM TUBE TP SCH ×2 (10:21→21:12)
[2021-02-03] MEDS: QUEtiapine FUMARATE 100 MG TABLET (FP) PO SCH (21:11)
[2021-02-03] MEDS: METHOCARBAMOL 500 MG TABLET PO PRN (21:11)
[2021-02-03] MEDS: THIAMINE HCL 100 MG TABLET (FP) PO SCH (21:11)
[2021-02-03] MEDS: MELATONIN 5 MG TABLETS PO SCH (21:12)
[2021-02-04] MEDS: PRENATAL VITAMINS W/ FOLIC ACID TABLET (FP) PO SCH (09:35)
[2021-02-04] MEDS: LISINOPRIL 20 MG TABLET PO SCH ×2 (09:35→21:15)
[2021-02-04] MEDS: NICOTINE 7 MG/24 HOURS TOPICAL PATCH TD SCH (09:35)
[2021-02-04] MEDS: PANTOPRAZOLE 20 MG TABLET PO SCH ×2 (09:35→21:58)
[2021-02-04] MEDS: QUEtiapine FUMARATE 50 MG TABLET PO SCH (09:35)
[2021-02-04] MEDS: amLODIPine BESYLATE 10 MG TABLET (FP) PO SCH (09:35)
[2021-02-04] MEDS: TOLNAFTATE 1% CREAM 15 GM TUBE TP SCH ×2 (09:36→23:58)
[2021-02-04] MEDS: MELATONIN 5 MG TABLETS PO SCH (21:15)
[2021-02-04] MEDS: THIAMINE HCL 100 MG TABLET (FP) PO SCH (21:15)
[2021-02-04] MEDS: METHOCARBAMOL 500 MG TABLET PO PRN (21:15)
[2021-02-04] MEDS: QUEtiapine FUMARATE 100 MG TABLET (FP) PO SCH (21:58)
[2021-02-05] MEDS: LISINOPRIL 20 MG TABLET PO SCH ×2 (09:04→21:30)
[2021-02-05] MEDS: amLODIPine BESYLATE 10 MG TABLET (FP) PO SCH (09:04)
[2021-02-05] MEDS: PRENATAL VITAMINS W/ FOLIC ACID TABLET (FP) PO SCH (09:04)
[2021-02-05] MEDS: PANTOPRAZOLE 20 MG TABLET PO SCH ×2 (09:04→21:30)
[2021-02-05] MEDS: NICOTINE 7 MG/24 HOURS TOPICAL PATCH TD SCH (09:04)
[2021-02-05] MEDS: TOLNAFTATE 1% CREAM 15 GM TUBE TP SCH ×2 (09:05→23:10)
[2021-02-05] MEDS: QUEtiapine FUMARATE 50 MG TABLET PO SCH (09:07)
[2021-02-05] MEDS: METHOCARBAMOL 500 MG TABLET PO PRN ×2 (09:07→21:31)
[2021-02-05] MEDS: THIAMINE HCL 100 MG TABLET (FP) PO SCH (21:30)
[2021-02-05] MEDS: MELATONIN 5 MG TABLETS PO SCH (21:30)
[2021-02-05] MEDS: QUEtiapine FUMARATE 100 MG TABLET (FP) PO SCH (21:30)
[2021-02-05] MEDS: hydrOXYzine PAMOATE 25 MG CAPSULE (FP) PO PRN (21:30)
[2021-02-06] MEDS: COLLOIDAL OATMEAL 1 BAR EACH TP PRN (06:33)
[2021-02-06] MEDS: NICOTINE 7 MG/24 HOURS TOPICAL PATCH TD SCH (09:45)
[2021-02-06] MEDS: amLODIPine BESYLATE 10 MG TABLET (FP) PO SCH (09:45)
[2021-02-06] MEDS: PANTOPRAZOLE 20 MG TABLET PO SCH ×2 (09:45→21:09)
[2021-02-06] MEDS: PRENATAL VITAMINS W/ FOLIC ACID TABLET (FP) PO SCH (09:45)
[2021-02-06] MEDS: LISINOPRIL 20 MG TABLET PO SCH ×2 (09:45→21:09)
[2021-02-06] MEDS: TOLNAFTATE 1% CREAM 15 GM TUBE TP SCH ×2 (09:46→23:37)
[2021-02-06] MEDS: QUEtiapine FUMARATE 50 MG TABLET PO SCH (11:00)
[2021-02-06] MEDS: MELATONIN 5 MG TABLETS PO SCH (21:08)
[2021-02-06] MEDS: METHOCARBAMOL 500 MG TABLET PO PRN (21:09)
[2021-02-06] MEDS: QUEtiapine FUMARATE 100 MG TABLET (FP) PO SCH (21:09)
[2021-02-06] MEDS: THIAMINE HCL 100 MG TABLET (FP) PO SCH (21:09)
[2021-02-07] MEDS: amLODIPine BESYLATE 10 MG TABLET (FP) PO SCH (10:00)
[2021-02-07] MEDS: QUEtiapine FUMARATE 50 MG TABLET PO SCH (10:00)
[2021-02-07] MEDS: PANTOPRAZOLE 20 MG TABLET PO SCH ×2 (10:00→21:13)
[2021-02-07] MEDS: TOLNAFTATE 1% CREAM 15 GM TUBE TP SCH ×2 (10:01→23:44)
[2021-02-07] MEDS: PRENATAL VITAMINS W/ FOLIC ACID TABLET (FP) PO SCH (10:01)
[2021-02-07] MEDS: NICOTINE 7 MG/24 HOURS TOPICAL PATCH TD SCH (10:01)
[2021-02-07] MEDS: LISINOPRIL 20 MG TABLET PO SCH ×2 (10:01→21:13)
[2021-02-07] MEDS: hydrOXYzine PAMOATE 25 MG CAPSULE (FP) PO PRN (21:13)
[2021-02-07] MEDS: MELATONIN 5 MG TABLETS PO SCH (21:13)
[2021-02-07] MEDS: QUEtiapine FUMARATE 100 MG TABLET (FP) PO SCH (21:13)
[2021-02-07] MEDS: METHOCARBAMOL 500 MG TABLET PO PRN (21:13)
[2021-02-07] MEDS: THIAMINE HCL 100 MG TABLET (FP) PO SCH (21:13)
[2021-02-08] MEDS: METHOCARBAMOL 500 MG TABLET PO PRN ×2 (09:35→21:06)
[2021-02-08] MEDS: QUEtiapine FUMARATE 50 MG TABLET PO SCH (09:35)
[2021-02-08] MEDS: PANTOPRAZOLE 20 MG TABLET PO SCH ×2 (09:35→21:06)
[2021-02-08] MEDS: LISINOPRIL 20 MG TABLET PO SCH ×2 (09:35→21:06)
[2021-02-08] MEDS: amLODIPine BESYLATE 10 MG TABLET (FP) PO SCH (09:35)
[2021-02-08] MEDS: PRENATAL VITAMINS W/ FOLIC ACID TABLET (FP) PO SCH (09:35)
[2021-02-08] MEDS: NICOTINE 7 MG/24 HOURS TOPICAL PATCH TD SCH (09:35)
[2021-02-08] MEDS: TOLNAFTATE 1% CREAM 15 GM TUBE TP SCH ×2 (11:00→21:07)
[2021-02-08] MEDS: QUEtiapine FUMARATE 100 MG TABLET (FP) PO SCH (21:06)
[2021-02-08] MEDS: THIAMINE HCL 100 MG TABLET (FP) PO SCH (21:06)
[2021-02-08] MEDS: hydrOXYzine PAMOATE 25 MG CAPSULE (FP) PO PRN (21:06)
[2021-02-08] MEDS: MELATONIN 5 MG TABLETS PO SCH (21:07)
[2021-02-09] MEDS: QUEtiapine FUMARATE 50 MG TABLET PO SCH (09:28)
[2021-02-09] MEDS: NICOTINE 7 MG/24 HOURS TOPICAL PATCH TD SCH (09:28)
[2021-02-09] MEDS: amLODIPine BESYLATE 10 MG TABLET (FP) PO SCH (09:28)
[2021-02-09] MEDS: PRENATAL VITAMINS W/ FOLIC ACID TABLET (FP) PO SCH (09:28)
[2021-02-09] MEDS: TOLNAFTATE 1% CREAM 15 GM TUBE TP SCH ×2 (09:29→23:02)
[2021-02-09] MEDS: PANTOPRAZOLE 20 MG TABLET PO SCH ×2 (09:29→21:18)
[2021-02-09] MEDS: LISINOPRIL 20 MG TABLET PO SCH ×2 (09:29→21:18)
[2021-02-09] MEDS: METHOCARBAMOL 500 MG TABLET PO PRN (21:18)
[2021-02-09] MEDS: MELATONIN 5 MG TABLETS PO SCH (21:18)
[2021-02-09] MEDS: THIAMINE HCL 100 MG TABLET (FP) PO SCH (21:18)
[2021-02-09] MEDS: QUEtiapine FUMARATE 100 MG TABLET (FP) PO SCH (21:18)
[2021-02-10] MEDS: NICOTINE 7 MG/24 HOURS TOPICAL PATCH TD SCH (09:30)
[2021-02-10] MEDS: PRENATAL VITAMINS W/ FOLIC ACID TABLET (FP) PO SCH (09:31)
[2021-02-10] MEDS: PANTOPRAZOLE 20 MG TABLET PO SCH ×2 (09:31→21:13)
[2021-02-10] MEDS: TOLNAFTATE 1% CREAM 15 GM TUBE TP SCH ×2 (09:31→21:14)
[2021-02-10] MEDS: QUEtiapine FUMARATE 50 MG TABLET PO SCH (09:31)
[2021-02-10] MEDS: LISINOPRIL 20 MG TABLET PO SCH ×2 (09:31→21:13)
[2021-02-10] MEDS: amLODIPine BESYLATE 10 MG TABLET (FP) PO SCH (09:31)
[2021-02-10] MEDS: METHOCARBAMOL 500 MG TABLET PO PRN (21:12)
[2021-02-10] MEDS: QUEtiapine FUMARATE 100 MG TABLET (FP) PO SCH (21:13)
[2021-02-10] MEDS: THIAMINE HCL 100 MG TABLET (FP) PO SCH (21:13)
[2021-02-10] MEDS: hydrOXYzine PAMOATE 25 MG CAPSULE (FP) PO PRN (21:13)
[2021-02-10] MEDS: MELATONIN 5 MG TABLETS PO SCH (21:13)
[2021-02-11] MEDS: TOLNAFTATE 1% CREAM 15 GM TUBE TP SCH ×2 (10:23→21:28)
[2021-02-11] MEDS: amLODIPine BESYLATE 10 MG TABLET (FP) PO SCH (10:23)
[2021-02-11] MEDS: LISINOPRIL 20 MG TABLET PO SCH ×2 (10:23→21:19)
[2021-02-11] MEDS: PANTOPRAZOLE 20 MG TABLET PO SCH ×2 (10:23→21:19)
[2021-02-11] MEDS: QUEtiapine FUMARATE 50 MG TABLET PO SCH (10:23)
[2021-02-11] MEDS: PRENATAL VITAMINS W/ FOLIC ACID TABLET (FP) PO SCH (10:24)
[2021-02-11] MEDS: NICOTINE 7 MG/24 HOURS TOPICAL PATCH TD SCH (10:24)
[2021-02-11] MEDS: COLLOIDAL OATMEAL 1 BAR EACH TP PRN (10:26)
[2021-02-11] MEDS ORDERED: PT OWN MED DRAWER 7, Y5N ONE (10:26)
[2021-02-11] MEDS: QUEtiapine FUMARATE 100 MG TABLET (FP) PO SCH (21:19)
[2021-02-11] MEDS: THIAMINE HCL 100 MG TABLET (FP) PO SCH (21:19)
[2021-02-11] MEDS: MELATONIN 5 MG TABLETS PO SCH (21:19)
[2021-02-11] MEDS: METHOCARBAMOL 500 MG TABLET PO PRN (21:19)
[2021-02-12] MEDS: QUEtiapine FUMARATE 50 MG TABLET PO SCH (09:43)
[2021-02-12] MEDS: PANTOPRAZOLE 20 MG TABLET PO SCH ×2 (09:43→21:27)
[2021-02-12] MEDS: PRENATAL VITAMINS W/ FOLIC ACID TABLET (FP) PO SCH (09:43)
[2021-02-12] MEDS: LISINOPRIL 20 MG TABLET PO SCH ×2 (09:44→21:27)
[2021-02-12] MEDS: NICOTINE 7 MG/24 HOURS TOPICAL PATCH TD SCH (09:44)
[2021-02-12] MEDS: TOLNAFTATE 1% CREAM 15 GM TUBE TP SCH ×2 (09:44→21:46)
[2021-02-12] MEDS: amLODIPine BESYLATE 10 MG TABLET (FP) PO SCH (09:44)
[2021-02-12] MEDS ORDERED: PT OWN MED DRAWER 7, Y5N ONE (19:37)
[2021-02-12] MEDS: METHOCARBAMOL 500 MG TABLET PO PRN (21:27)
[2021-02-12] MEDS: QUEtiapine FUMARATE 100 MG TABLET (FP) PO SCH (21:27)
[2021-02-12] MEDS: MELATONIN 5 MG TABLETS PO SCH (21:27)
[2021-02-12] MEDS: THIAMINE HCL 100 MG TABLET (FP) PO SCH (21:47)
[2021-02-13] MEDS ORDERED: PT OWN MED DRAWER 7, Y5N ONE (08:33)
[2021-02-13] MEDS: QUEtiapine FUMARATE 50 MG TABLET PO SCH (09:36)
[2021-02-13] MEDS: amLODIPine BESYLATE 10 MG TABLET (FP) PO SCH (09:36)
[2021-02-13] MEDS: LISINOPRIL 20 MG TABLET PO SCH ×2 (09:37→21:06)
[2021-02-13] MEDS: PRENATAL VITAMINS W/ FOLIC ACID TABLET (FP) PO SCH (09:37)
[2021-02-13] MEDS: NICOTINE 7 MG/24 HOURS TOPICAL PATCH TD SCH (09:38)
[2021-02-13] MEDS: TOLNAFTATE 1% CREAM 15 GM TUBE TP SCH ×2 (09:38→21:08)
[2021-02-13] MEDS: PANTOPRAZOLE 20 MG TABLET PO SCH ×2 (12:21→21:06)
[2021-02-13] MEDS: THIAMINE HCL 100 MG TABLET (FP) PO SCH (21:06)
[2021-02-13] MEDS: METHOCARBAMOL 500 MG TABLET PO PRN (21:06)
[2021-02-13] MEDS: hydrOXYzine PAMOATE 25 MG CAPSULE (FP) PO PRN (21:07)
[2021-02-13] MEDS: MELATONIN 5 MG TABLETS PO SCH (21:07)
[2021-02-13] MEDS: QUEtiapine FUMARATE 100 MG TABLET (FP) PO SCH (21:07)
[2021-02-14] MEDS: COLLOIDAL OATMEAL 1 BAR EACH TP PRN (07:04)
[2021-02-14] MEDS: METHOCARBAMOL 500 MG TABLET PO PRN ×2 (09:43→21:16)
[2021-02-14] MEDS: LISINOPRIL 20 MG TABLET PO SCH ×2 (09:43→21:16)
[2021-02-14] MEDS: TOLNAFTATE 1% CREAM 15 GM TUBE TP SCH ×2 (09:43→21:16)
[2021-02-14] MEDS: amLODIPine BESYLATE 10 MG TABLET (FP) PO SCH (09:43)
[2021-02-14] MEDS: PANTOPRAZOLE 20 MG TABLET PO SCH ×2 (09:43→21:16)
[2021-02-14] MEDS: NICOTINE 7 MG/24 HOURS TOPICAL PATCH TD SCH (09:44)
[2021-02-14] MEDS: PRENATAL VITAMINS W/ FOLIC ACID TABLET (FP) PO SCH (09:44)
[2021-02-14] MEDS: QUEtiapine FUMARATE 50 MG TABLET PO SCH (09:44)
[2021-02-14] MEDS: MELATONIN 5 MG TABLETS PO SCH (21:16)
[2021-02-14] MEDS: THIAMINE HCL 100 MG TABLET (FP) PO SCH (21:16)
[2021-02-14] MEDS: QUEtiapine FUMARATE 100 MG TABLET (FP) PO SCH (21:16)
[2021-02-15] MEDS: NICOTINE 7 MG/24 HOURS TOPICAL PATCH TD SCH (09:11)
[2021-02-15] MEDS: QUEtiapine FUMARATE 50 MG TABLET PO SCH (09:11)
[2021-02-15] MEDS: PRENATAL VITAMINS W/ FOLIC ACID TABLET (FP) PO SCH (09:12)
[2021-02-15] MEDS: PANTOPRAZOLE 20 MG TABLET PO SCH ×2 (09:12→21:14)
[2021-02-15] MEDS: TOLNAFTATE 1% CREAM 15 GM TUBE TP SCH ×2 (09:12→21:15)
[2021-02-15] MEDS: amLODIPine BESYLATE 10 MG TABLET (FP) PO SCH (09:12)
[2021-02-15] MEDS: LISINOPRIL 20 MG TABLET PO SCH ×2 (09:12→21:13)
[2021-02-15] MEDS: METHOCARBAMOL 500 MG TABLET PO PRN ×2 (09:12→21:13)
[2021-02-15] MEDS: hydrOXYzine PAMOATE 25 MG CAPSULE (FP) PO PRN (21:12)
[2021-02-15] MEDS: QUEtiapine FUMARATE 100 MG TABLET (FP) PO SCH (21:13)
[2021-02-15] MEDS: MELATONIN 5 MG TABLETS PO SCH (21:13)
[2021-02-15] MEDS: THIAMINE HCL 100 MG TABLET (FP) PO SCH (21:13)
[2021-02-16 06:40] VITALS: BP 148/82; PULSE 79; TEMP 97.3
== END 2021-02-16 06:55 | disposition home or self-care (01) | DRG 772 ==
LOC: YASAS 12:24 → Y3E 12:25
PROVIDERS: ADMIT Allergy & Immunology; ATTEND Allergy & Immunology
PROC: HZ42ZZZ Group Counseling for Substance Abuse Treatment, Cognitive-Behavioral (ICD-10-PCS; principal; 2021-01-20)
DX: F10.20 Alcohol dependence, uncomplicated (principal); F14.20 Cocaine dependence, uncomplicated; F16.20 Hallucinogen dependence, uncomplicated; F12.20 Cannabis dependence, uncomplicated; F19.24 Other psychoactive substance dependence with psychoactive substance-induced mood disorder; I10 Essential (primary) hypertension; K21.9 Gastro-esophageal reflux disease without esophagitis; G47.00 Insomnia, unspecified; Z91.51 Personal history of suicidal behavior; Z86.11 Personal history of tuberculosis; Z56.0 Unemployment, unspecified
CPT/HCPCS: 82962; C9803; U0003; U0005

== ENCOUNTER 2022-04-27 15:09 | Inpatient (IN) | payer OTHER ==
[2022-04-27 15:41] VITALS: BMI 32.7
[2022-04-27] MEDS ORDERED: NALOXONE HCL (KLOXXADO) 8 MG SPRAY NS PRN (19:28)
[2022-04-27] MEDS ORDERED: ONDANSETRON *ODT* 4 MG TABLET SL PRN (19:28)
[2022-04-27] MEDS ORDERED: LOPERAMIDE HCL 2 MG CAPSULE PO PRN (19:28)
[2022-04-27] MEDS ORDERED: ACETAMINOPHEN 325 MG TABLET (FP) PO PRN ×2 (19:28)
[2022-04-27] MEDS ORDERED: DICYCLOMINE HCL 10 MG CAPSULE PO PRN (19:28)
[2022-04-27] MEDS ORDERED: BENZOCAINE/MENTHOL (CHLORASEPTIC ) LOZENGE MM PRN (19:28)
[2022-04-27] MEDS ORDERED: POLYETHYLENE GLYCOL (HEALTHYLAX) 3350 17 GM PACKET PO PRN (19:28)
[2022-04-27] MEDS ORDERED: MAGNESIUM HYDROX 2400MG/30ML ORAL SUSPENSION 30 ML CUP PO PRN (19:28)
[2022-04-27] MEDS ORDERED: MAG HYDROX/AL HYDROX/SIMETH 30 ML UNIT-DOSE CUP PO PRN (19:28)
[2022-04-27] MEDS: chlordiazePOXIDE HCL 25 MG CAPSULE PO PRN (20:32)
[2022-04-27] MEDS: METHOCARBAMOL 500 MG TABLET PO PRN (20:33)
[2022-04-27] MEDS: THIAMINE HCL 100 MG TABLET (FP) PO SCH (22:03)
[2022-04-27] MEDS: MELATONIN 5 MG TABLETS PO SCH (22:03)
[2022-04-27] MEDS: chlordiazePOXIDE HCL 25 MG CAPSULE PO SCH (22:04)
[2022-04-28] MEDS: chlordiazePOXIDE HCL 25 MG CAPSULE PO SCH ×4 (05:14→22:36)
[2022-04-28] MEDS: PRENATAL VITAMINS W/ FOLIC ACID TABLET (FP) PO SCH (10:08)
[2022-04-28 10:28] LABS: HEMATOCRIT 38.2 % (35.4-49); HEMOGLOBIN 12.9 GM/dL (11.7-16.9); MCH 29.1 pg (25.7-33.7); MCHC 33.7 g/dl (32.0-35.9); MEAN CELL VOLUME 86.3 fl (80-96); PLATELET COUNT 140 10^3/uL (134-434); RBC 4.43 M/mm3 (4.00-5.60); RDW 15.1 % (11.9-15.9); WHITE BLOOD COUNT 4.8 K/mm3 (4.0-10.0)
[2022-04-28 10:35] LABS: CALCIUM 8.3 mg/dL (8.5-10.1)
[2022-04-28 10:36] LABS: BLOOD UREA NITROGEN 17.1 mg/dL (7-18)
[2022-04-28 10:39] LABS: CREATININE 1.2 mg/dL (0.55-1.3)
[2022-04-28 10:40] LABS: TOT PROT 6.2 g/dl (6.4-8.2)
[2022-04-28 10:41] LABS: BILIRUBIN,TOTAL 0.2 mg/dL (0.2-1)
[2022-04-28] MEDS ORDERED: POTASSIUM CHLORIDE ORAL LIQUID 20 MEQ/15 ML PO ONE ×3 (14:11→22:00)
[2022-04-28] MEDS ORDERED: QUEtiapine FUMARATE 50 MG TABLET PO ONE (16:42)
[2022-04-28] MEDS: metFORMIN HCL 500 MG TABLET (FP) PO SCH (17:04)
[2022-04-28] MEDS: THIAMINE HCL 100 MG TABLET (FP) PO SCH (22:35)
[2022-04-28] MEDS: QUEtiapine FUMARATE 100 MG TABLET (FP) PO SCH (22:36)
[2022-04-28] MEDS: hydrOXYzine PAMOATE 25 MG CAPSULE (FP) PO PRN (22:38)
[2022-04-28] MEDS: MELATONIN 5 MG TABLETS PO SCH (23:24)
[2022-04-29] MEDS: chlordiazePOXIDE HCL 25 MG CAPSULE PO SCH ×4 (05:26→22:09)
[2022-04-29] MEDS: metFORMIN HCL 500 MG TABLET (FP) PO SCH ×2 (06:46→17:33)
[2022-04-29] MEDS: QUEtiapine FUMARATE 50 MG TABLET PO SCH (10:35)
[2022-04-29] MEDS: amLODIPine BESYLATE 10 MG TABLET (FP) PO SCH (10:35)
[2022-04-29] MEDS: PRENATAL VITAMINS W/ FOLIC ACID TABLET (FP) PO SCH (10:35)
[2022-04-29] MEDS: chlordiazePOXIDE HCL 25 MG CAPSULE PO PRN (13:07)
[2022-04-29] MEDS: MELATONIN 5 MG TABLETS PO SCH (22:08)
[2022-04-29] MEDS: THIAMINE HCL 100 MG TABLET (FP) PO SCH (22:09)
[2022-04-29] MEDS: QUEtiapine FUMARATE 100 MG TABLET (FP) PO SCH (22:09)
[2022-04-30] MEDS ORDERED: chlordiazePOXIDE HCL 10 MG CAPSULE PO PRN
[2022-04-30] MEDS: chlordiazePOXIDE HCL 10 MG CAPSULE PO SCH ×4 (06:08→22:26)
[2022-04-30] MEDS: metFORMIN HCL 500 MG TABLET (FP) PO SCH ×2 (06:11→17:23)
[2022-04-30] MEDS: PRENATAL VITAMINS W/ FOLIC ACID TABLET (FP) PO SCH (10:35)
[2022-04-30] MEDS: QUEtiapine FUMARATE 50 MG TABLET PO SCH (10:35)
[2022-04-30] MEDS: amLODIPine BESYLATE 10 MG TABLET (FP) PO SCH (10:35)
[2022-04-30] MEDS ORDERED: LISINOPRIL 10 MG TABLET PO ONE (21:30)
[2022-04-30] MEDS: THIAMINE HCL 100 MG TABLET (FP) PO SCH (21:44)
[2022-04-30] MEDS: QUEtiapine FUMARATE 100 MG TABLET (FP) PO SCH (21:44)
[2022-04-30] MEDS: METHOCARBAMOL 500 MG TABLET PO PRN (21:44)
[2022-04-30] MEDS: MELATONIN 5 MG TABLETS PO SCH (22:26)
[2022-05-01] MEDS: chlordiazePOXIDE HCL 10 MG CAPSULE PO SCH ×2 (05:53→17:27)
[2022-05-01] MEDS: metFORMIN HCL 500 MG TABLET (FP) PO SCH ×2 (06:46→17:25)
[2022-05-01] MEDS: amLODIPine BESYLATE 10 MG TABLET (FP) PO SCH (09:20)
[2022-05-01] MEDS: QUEtiapine FUMARATE 50 MG TABLET PO SCH (09:20)
[2022-05-01] MEDS: PRENATAL VITAMINS W/ FOLIC ACID TABLET (FP) PO SCH (09:20)
[2022-05-01] MEDS: MELATONIN 5 MG TABLETS PO SCH (21:51)
[2022-05-01] MEDS: QUEtiapine FUMARATE 100 MG TABLET (FP) PO SCH (21:51)
[2022-05-01] MEDS: hydrOXYzine PAMOATE 25 MG CAPSULE (FP) PO PRN (21:52)
[2022-05-01] MEDS: METHOCARBAMOL 500 MG TABLET PO PRN (21:52)
[2022-05-01] MEDS: THIAMINE HCL 100 MG TABLET (FP) PO SCH (21:52)
[2022-05-01] MEDS ORDERED: LISINOPRIL 5 MG TABLET PO ONE (22:44)
[2022-05-02] MEDS ORDERED: chlordiazePOXIDE HCL 10 MG CAPSULE PO ONE (05:00)
[2022-05-02] MEDS: metFORMIN HCL 500 MG TABLET (FP) PO SCH (06:22)
[2022-05-02 08:55] VITALS: BP 151/92; PULSE 74; RESP 16; TEMP 98.2
[2022-05-02] MEDS: PRENATAL VITAMINS W/ FOLIC ACID TABLET (FP) PO SCH (09:18)
[2022-05-02] MEDS: amLODIPine BESYLATE 10 MG TABLET (FP) PO SCH (09:18)
[2022-05-02] MEDS: QUEtiapine FUMARATE 50 MG TABLET PO SCH (09:18)
== END 2022-05-02 09:35 | disposition home or self-care (01) | DRG 774 ==
LOC: YASAS 15:09 → Y3N 20:09
PROVIDERS: ADMIT Allergy & Immunology; ATTEND Surgery
PROC: HZ2ZZZZ Detoxification Services for Substance Abuse Treatment (ICD-10-PCS; principal; 2022-04-27)
DX: F10.230 Alcohol dependence with withdrawal, uncomplicated (principal); F14.10 Cocaine abuse, uncomplicated; F31.9 Bipolar disorder, unspecified; E87.6 Hypokalemia; G47.00 Insomnia, unspecified; I10 Essential (primary) hypertension; E11.59 Type 2 diabetes mellitus with other circulatory complications; Z79.84 Long term (current) use of oral hypoglycemic drugs; Z88.6 Allergy status to analgesic agent
CPT/HCPCS: 36415; 80053; 82962; 85027; 86780; 87811; C9803-CS; U0003; U0005

== ENCOUNTER 2022-08-14 10:42 | Inpatient (IN) | payer OTHER ==
[2022-08-14 11:08] VITALS: BMI 32.6
[2022-08-14] MEDS ORDERED: BENZONATATE 200 MG CAPSULE PO PRN (11:46)
[2022-08-14] MEDS ORDERED: chlordiazePOXIDE HCL 25 MG CAPSULE PO ONE (11:46)
[2022-08-14] MEDS ORDERED: NICOTINE POLACRILEX 2 MG GUM BUC PRN (11:46)
[2022-08-14] MEDS ORDERED: ONDANSETRON *ODT* 4 MG TABLET SL PRN (11:46)
[2022-08-14] MEDS ORDERED: METHOCARBAMOL 500 MG TABLET PO PRN (11:46)
[2022-08-14] MEDS ORDERED: POLYETHYLENE GLYCOL (HEALTHYLAX) 3350 17 GM PACKET PO PRN (11:46)
[2022-08-14] MEDS ORDERED: ACETAMINOPHEN 325 MG TABLET (FP) PO PRN (11:46)
[2022-08-14] MEDS ORDERED: LOPERAMIDE HCL 2 MG CAPSULE PO PRN (11:46)
[2022-08-14] MEDS ORDERED: DICYCLOMINE HCL 10 MG CAPSULE PO PRN (11:46)
[2022-08-14] MEDS ORDERED: MAG HYDROX/AL HYDROX/SIMETH 30 ML UNIT-DOSE CUP PO PRN (11:46)
[2022-08-14] MEDS ORDERED: AMMONIUM LACTATE 12% LOTION 225 GM BOTTLE TP PRN (11:46)
[2022-08-14] MEDS ORDERED: NICOTINE 10 MG CARTRIDGE (INHALER) IH PRN (11:46)
[2022-08-14] MEDS ORDERED: guaiFENesin 600 MG TABLET.ER (FP) PO PRN (11:46)
[2022-08-14] MEDS ORDERED: COLLOIDAL OATMEAL 1 BAR EACH TP PRN (11:46)
[2022-08-14] MEDS ORDERED: MAGNESIUM HYDROX 2400MG/30ML ORAL SUSPENSION 30 ML CUP PO PRN (11:46)
[2022-08-14] MEDS ORDERED: NALOXONE HCL 0.4 MG/ML VIAL IM PRN (11:46)
[2022-08-14] MEDS ORDERED: NALOXONE HCL (KLOXXADO) 8 MG SPRAY NS PRN (11:46)
[2022-08-14] MEDS ORDERED: BENZOCAINE/MENTHOL (CHLORASEPTIC ) LOZENGE MM PRN (11:46)
[2022-08-14] MEDS ORDERED: metFORMIN HCL 500 MG TABLET (FP) PO SCH ×2 (12:00→16:30)
[2022-08-14] MEDS: LISINOPRIL 20 MG TABLET PO SCH ×2 (12:20→22:24)
[2022-08-14] MEDS: amLODIPine BESYLATE 10 MG TABLET (FP) PO SCH (12:20)
[2022-08-14] MEDS ORDERED: chlordiazePOXIDE HCL 25 MG CAPSULE ONE (12:23)
[2022-08-14] MEDS ORDERED: amLODIPine BESYLATE 5 MG TABLET (FP) ONE (12:24)
[2022-08-14] MEDS ORDERED: LISINOPRIL 10 MG TABLET ONE (12:25)
[2022-08-14 16:50] LABS: HEMATOCRIT 44.3 % (35.4-49); HEMOGLOBIN 14.8 GM/dL (11.7-16.9); MCH 28.7 pg (25.7-33.7); MCHC 33.5 g/dl (32.0-35.9); MEAN CELL VOLUME 85.5 fl (80-96); MEAN PLT VOLUME 9.5 fl (7.5-11.1); PLATELET COUNT 150 10^3/uL (134-434); RBC 5.17 M/mm3 (4.00-5.60); RDW 15.6 % (11.9-15.9); WHITE BLOOD COUNT 5.9 K/mm3 (4.0-10.0)
[2022-08-14 16:54] LABS: POTASSIUM 3.4 mmol/L (3.5-5.1)
[2022-08-14 17:00] LABS: CALCIUM 8.7 mg/dL (8.5-10.1)
[2022-08-14 17:01] LABS: ALBUMIN 3.2 g/dl (3.4-5.0); BLOOD UREA NITROGEN 13.2 mg/dL (7-18)
[2022-08-14 17:03] LABS: CREATININE 1.2 mg/dL (0.55-1.3)
[2022-08-14] MEDS: INSULIN SLIDING SCALE (NOVOLOG) 1 VIAL SQ SCH ×2 (17:03→22:33)
[2022-08-14 17:04] LABS: TOT PROT 6.2 g/dl (6.4-8.2)
[2022-08-14 17:07] LABS: BILIRUBIN,TOTAL 0.4 mg/dL (0.2-1)
[2022-08-14] MEDS: chlordiazePOXIDE HCL 25 MG CAPSULE PO SCH ×2 (17:48→22:23)
[2022-08-14] MEDS: QUEtiapine FUMARATE 100 MG TABLET (FP) PO SCH (22:24)
[2022-08-14] MEDS: THIAMINE HCL 100 MG TABLET (FP) PO SCH (22:24)
[2022-08-14] MEDS: MELATONIN 5 MG TABLETS PO SCH (22:24)
[2022-08-15] MEDS: chlordiazePOXIDE HCL 25 MG CAPSULE PO SCH ×4 (05:58→22:31)
[2022-08-15] MEDS ORDERED: metFORMIN HCL 500 MG TABLET (FP) PO SCH (07:00)
[2022-08-15] MEDS: INSULIN SLIDING SCALE (NOVOLOG) 1 VIAL SQ SCH ×2 (07:08→11:46)
[2022-08-15] MEDS ORDERED: QUEtiapine FUMARATE 25 MG TABLET PO SCH (10:00)
[2022-08-15] MEDS: amLODIPine BESYLATE 10 MG TABLET (FP) PO SCH (10:16)
[2022-08-15] MEDS: LISINOPRIL 20 MG TABLET PO SCH ×2 (10:16→22:30)
[2022-08-15] MEDS: PRENATAL VITAMINS W/ FOLIC ACID TABLET (FP) PO SCH (10:16)
[2022-08-15] MEDS ORDERED: POTASSIUM CHLORIDE ORAL LIQUID 20 MEQ/15 ML PO ONE (15:45)
[2022-08-15] MEDS: metFORMIN HCL 500 MG TABLET (FP) PO SCH (16:55)
[2022-08-15] MEDS: QUEtiapine FUMARATE 100 MG TABLET (FP) PO SCH (22:30)
[2022-08-15] MEDS: MELATONIN 5 MG TABLETS PO SCH (22:30)
[2022-08-15] MEDS: THIAMINE HCL 100 MG TABLET (FP) PO SCH (22:31)
[2022-08-16] MEDS: chlordiazePOXIDE HCL 25 MG CAPSULE PO SCH ×4 (05:27→22:14)
[2022-08-16] MEDS: metFORMIN HCL 500 MG TABLET (FP) PO SCH ×2 (06:10→17:11)
[2022-08-16] MEDS: amLODIPine BESYLATE 10 MG TABLET (FP) PO SCH (10:21)
[2022-08-16] MEDS: PRENATAL VITAMINS W/ FOLIC ACID TABLET (FP) PO SCH (10:21)
[2022-08-16] MEDS: LISINOPRIL 20 MG TABLET PO SCH ×2 (10:21→22:14)
[2022-08-16] MEDS: MELATONIN 5 MG TABLETS PO SCH (22:14)
[2022-08-16] MEDS: QUEtiapine FUMARATE 100 MG TABLET (FP) PO SCH (22:14)
[2022-08-16] MEDS: THIAMINE HCL 100 MG TABLET (FP) PO SCH (22:14)
[2022-08-17] MEDS: chlordiazePOXIDE HCL 10 MG CAPSULE PO SCH ×3 (05:54→17:25)
[2022-08-17] MEDS: metFORMIN HCL 500 MG TABLET (FP) PO SCH ×2 (06:30→17:25)
[2022-08-17 09:02] VITALS: RESP 18
[2022-08-17] MEDS: amLODIPine BESYLATE 10 MG TABLET (FP) PO SCH (10:21)
[2022-08-17] MEDS: PRENATAL VITAMINS W/ FOLIC ACID TABLET (FP) PO SCH (10:21)
[2022-08-17] MEDS: LISINOPRIL 20 MG TABLET PO SCH (10:22)
[2022-08-17 18:26] VITALS: BP 146/91; PULSE 74; TEMP 98.2
[2022-08-18] MEDS ORDERED: chlordiazePOXIDE HCL 10 MG CAPSULE PO SCH (05:00)
[2022-08-19] MEDS ORDERED: chlordiazePOXIDE HCL 10 MG CAPSULE PO ONE (05:00)
== END 2022-08-17 17:35 | disposition left against medical advice (07) | DRG 770 ==
LOC: YASAS 10:42 → Y3N 11:39
PROVIDERS: ADMIT Allergy & Immunology; ATTEND Surgery
PROC: HZ2ZZZZ Detoxification Services for Substance Abuse Treatment (ICD-10-PCS; principal; 2022-08-14)
DX: F10.230 Alcohol dependence with withdrawal, uncomplicated (principal); F12.20 Cannabis dependence, uncomplicated; F17.210 Nicotine dependence, cigarettes, uncomplicated; F19.24 Other psychoactive substance dependence with psychoactive substance-induced mood disorder; F31.9 Bipolar disorder, unspecified; U07.1 COVID-19; E87.6 Hypokalemia; G47.00 Insomnia, unspecified; I10 Essential (primary) hypertension; E11.9 Type 2 diabetes mellitus without complications; Z79.84 Long term (current) use of oral hypoglycemic drugs
CPT/HCPCS: 36415; 80053; 82962; 84132; 85027; 86780; 87635

== ENCOUNTER 2023-11-16 12:12 | Inpatient (IN) | payer OTHER ==
[2023-11-16 12:42] VITALS: BMI 31.3
[2023-11-16] MEDS ORDERED: guaiFENesin 600 MG TABLET.ER (FP) PO PRN (16:09)
[2023-11-16] MEDS ORDERED: MAG HYDROX/AL HYDROX/SIMETH 30 ML UNIT-DOSE CUP PO PRN (16:09)
[2023-11-16] MEDS ORDERED: BENZONATATE 200 MG CAPSULE PO PRN (16:09)
[2023-11-16] MEDS ORDERED: POLYETHYLENE GLYCOL (HEALTHYLAX) 3350 17 GM PACKET PO PRN (16:09)
[2023-11-16] MEDS ORDERED: MAGNESIUM HYDROX 2400MG/30ML ORAL SUSPENSION 30 ML CUP PO PRN (16:09)
[2023-11-16] MEDS ORDERED: chlordiazePOXIDE HCL 25 MG CAPSULE PO PRN (16:09)
[2023-11-16] MEDS ORDERED: NALOXONE HCL 0.4 MG/ML VIAL IM PRN (16:09)
[2023-11-16] MEDS ORDERED: hydrOXYzine PAMOATE 25 MG CAPSULE (FP) PO PRN (16:09)
[2023-11-16] MEDS ORDERED: BENZOCAINE/MENTHOL (CHLORASEPTIC ) LOZENGE MM PRN (16:09)
[2023-11-16] MEDS ORDERED: NALOXONE (NARCAN) HCL 4 MG/0.1 ML SPRAY NS PRN (16:09)
[2023-11-16] MEDS ORDERED: DICYCLOMINE HCL 10 MG CAPSULE PO PRN (16:09)
[2023-11-16] MEDS ORDERED: ONDANSETRON *ODT* 4 MG TABLET SL PRN (16:09)
[2023-11-16] MEDS ORDERED: LOPERAMIDE HCL 2 MG CAPSULE PO PRN (16:09)
[2023-11-16] MEDS: METHOCARBAMOL 500 MG TABLET PO PRN (17:30)
[2023-11-16] MEDS: chlordiazePOXIDE HCL 25 MG CAPSULE PO SCH (17:30)
[2023-11-16] MEDS: MELATONIN 5 MG TABLETS PO SCH (22:24)
[2023-11-16] MEDS: THIAMINE 100 MG TABLET PO SCH (22:25)
[2023-11-16] MEDS: ATORVASTATIN CA 40 MG TABLET (FP) PO SCH (22:25)
[2023-11-17 09:19] LABS: HEMATOCRIT 37.2 % (35.4-49); HEMOGLOBIN 12.6 GM/dL (11.7-16.9); MEAN CELL VOLUME 91.2 fl (80-96); MEAN PLT VOLUME 9.6 fl (7.5-11.1); PLATELET COUNT 185 10^3/uL (134-434); RBC 4.08 M/mm3 (4.00-5.60); WHITE BLOOD COUNT 5.6 K/mm3 (4.0-10.0)
[2023-11-17 09:25] LABS: CHLORIDE 108 mmol/L (98-107); POTASSIUM 3.8 mmol/L (3.5-5.1); SODIUM 140 mmol/L (136-145)
[2023-11-17 09:31] LABS: CALCIUM 8.8 mg/dL (8.5-10.1)
[2023-11-17 09:32] LABS: ALBUMIN 3.1 g/dl (3.4-5.0); ANION GAP 6 mmol/L (4-13); CO2 26 mmol/L (21-32); GLUCOSE,RANDOM 129 mg/dL (74-106)
[2023-11-17 09:35] LABS: CREATININE 1.1 mg/dL (0.55-1.3); SGOT/AST 22 U/L (15-37); SGPT/ALT 24 U/L (13-61)
[2023-11-17 09:36] LABS: BILIRUBIN,TOTAL 0.3 mg/dL (0.2-1); TOT PROT 6.3 g/dl (6.4-8.2)
[2023-11-17 09:38] LABS: ALK PHOS 118 U/L (45-117)
[2023-11-17] MEDS ORDERED: PATIENT'S OWN MEDICATION (NON-FORMULARY) (Losartan/Hydrochlorothiazide [Losartan-Hctz 100- PO SCH (10:00)
[2023-11-17] MEDS: PRENATAL VITAMINS W/ FOLIC ACID TABLET (FP) PO SCH (10:29)
[2023-11-17] MEDS: LOSARTAN POTASSIUM 50 MG TABLET PO SCH (10:29)
[2023-11-17] MEDS: amLODIPine BESYLATE 10 MG TABLET (FP) PO SCH (10:30)
[2023-11-17] MEDS: HYDROCHLOROTHIAZIDE 25 MG TABLET (FP) PO SCH (10:30)
[2023-11-17] MEDS: FAMOTIDINE 20 MG TABLET PO SCH (10:30)
[2023-11-17] MEDS: LIDOCAINE 5% TOPICAL PATCH TP SCH (10:33)
[2023-11-17] MEDS: VITAMINS A AND D TOPICAL OINTMENT TP SCH (17:24)
[2023-11-17] MEDS: QUEtiapine FUMARATE 100 MG TABLET (FP) PO SCH (22:44)
[2023-11-17] MEDS: LIDOCAINE PATCH REMOVAL MC SCH (22:50)
[2023-11-18] MEDS: chlordiazePOXIDE HCL 25 MG CAPSULE PO SCH (05:51)
[2023-11-19] MEDS ORDERED: chlordiazePOXIDE HCL 10 MG CAPSULE PO PRN
[2023-11-19] MEDS: chlordiazePOXIDE HCL 10 MG CAPSULE PO SCH (06:19)
[2023-11-19 12:15] LABS: PH,URINE 5.5 (5.0-8.0); URINE APPEARANCE CLEAR; URINE BILIRUBIN NEGATIVE (NEGATIVE); URINE COLOR YELLOW; URINE GLUCOSE (UA) NEGATIVE (NEGATIVE); URINE KETONE NEGATIVE (NEGATIVE); URINE LEUK ESTERASE NEGATIVE (NEGATIVE); URINE NITRITE NEGATIVE (NEGATIVE); URINE PROTEIN NEGATIVE (NEGATIVE); URINE UROBILINOGEN 0.2 mg/dL (0.2-1.0)
[2023-11-20] MEDS: chlordiazePOXIDE HCL 10 MG CAPSULE PO SCH (05:57)
[2023-11-20 09:22] VITALS: BP 112/62; PULSE 62; RESP 20; TEMP 97.6
[2023-11-21] MEDS ORDERED: chlordiazePOXIDE HCL 10 MG CAPSULE PO ONE (05:00)
== END 2023-11-20 12:09 | disposition left against medical advice (07) | DRG 775 ==
LOC: YASAS 12:12 → Y3N 16:35
PROVIDERS: ADMIT Allergy & Immunology; ATTEND Surgery
PROC: HZ2ZZZZ Detoxification Services for Substance Abuse Treatment (ICD-10-PCS; principal; 2023-11-16)
DX: F10.230 Alcohol dependence with withdrawal, uncomplicated (principal); F16.10 Hallucinogen abuse, uncomplicated; F17.210 Nicotine dependence, cigarettes, uncomplicated; F19.24 Other psychoactive substance dependence with psychoactive substance-induced mood disorder; F31.9 Bipolar disorder, unspecified; E78.5 Hyperlipidemia, unspecified; I10 Essential (primary) hypertension; E11.9 Type 2 diabetes mellitus without complications; Z79.84 Long term (current) use of oral hypoglycemic drugs; M54.50 Low back pain, unspecified; G89.29 Other chronic pain; F91.8 Other conduct disorders; Z91.199 Patient's noncompliance with other medical treatment and regimen due to unspecified reason; Z99.89 Dependence on other enabling machines and devices; Z86.11 Personal history of tuberculosis; Z88.6 Allergy status to analgesic agent
CPT/HCPCS: 36415; 71046-TC-FY; 80053; 80305; 80307; 81003; 82962; 85027; 86780; 93005; 93010

== ENCOUNTER 2024-04-30 15:07 | Inpatient (IN) | payer OTHER ==
[2024-04-30 16:34] VITALS: BMI 31.3
[2024-04-30] MEDS ORDERED: LOPERAMIDE HCL 2 MG CAPSULE PO PRN (19:22)
[2024-04-30] MEDS ORDERED: NALOXONE (NARCAN) HCL 4 MG/0.1 ML SPRAY NS PRN (19:22)
[2024-04-30] MEDS ORDERED: BENZOCAINE/MENTHOL (CHLORASEPTIC ) LOZENGE MM PRN (19:22)
[2024-04-30] MEDS ORDERED: guaiFENesin 600 MG TABLET.ER (FP) PO PRN (19:22)
[2024-04-30] MEDS ORDERED: ONDANSETRON *ODT* 4 MG TABLET SL PRN (19:22)
[2024-04-30] MEDS ORDERED: ACETAMINOPHEN 325 MG TABLET (FP) PO PRN (19:22)
[2024-04-30] MEDS ORDERED: MAGNESIUM HYDROX 2400MG/30ML ORAL SUSPENSION 30 ML CUP PO PRN (19:22)
[2024-04-30] MEDS ORDERED: BENZONATATE 200 MG CAPSULE PO PRN (19:22)
[2024-04-30] MEDS ORDERED: POLYETHYLENE GLYCOL (HEALTHYLAX) 3350 17 GM PACKET PO PRN (19:22)
[2024-04-30] MEDS ORDERED: BISMUTH SUBSALICYLATE 524 MG/30 ML PO PRN (19:22)
[2024-04-30] MEDS ORDERED: DICYCLOMINE HCL 10 MG CAPSULE PO PRN (19:22)
[2024-04-30] MEDS ORDERED: IBUPROFEN 600 MG TABLET (FP) PO PRN (19:22)
[2024-04-30] MEDS ORDERED: MAG HYDROX/AL HYDROX/SIMETH 30 ML UNIT-DOSE CUP PO PRN (19:22)
[2024-04-30] MEDS ORDERED: IBUPROFEN 400 MG TABLET (FP) PO PRN (19:22)
[2024-04-30] MEDS ORDERED: MELATONIN 5 MG TABLETS PO SCH (22:00)
[2024-04-30] MEDS ORDERED: chlordiazePOXIDE HCL 25 MG CAPSULE ONE (23:04)
[2024-04-30] MEDS ORDERED: MELATONIN 5 MG TABLETS ONE (23:05)
[2024-04-30] MEDS: THIAMINE 100 MG TABLET PO SCH (23:13)
[2024-04-30] MEDS: MELATONIN 5 MG TABLETS PO SCH (23:13)
[2024-04-30] MEDS: chlordiazePOXIDE HCL 25 MG CAPSULE PO SCH (23:13)
[2024-05-01] MEDS: ATORVASTATIN CA 40 MG TABLET (FP) PO SCH (00:11)
[2024-05-01] MEDS ORDERED: VITAMINS A AND D TOPICAL OINTMENT TP SCH (06:00)
[2024-05-01] MEDS: metFORMIN HCL 500 MG TABLET (FP) PO SCH (06:04)
[2024-05-01] MEDS ORDERED: DOXYCYCLINE HYCLATE 100 MG CAPSULE PO SCH (10:00)
[2024-05-01] MEDS: PANTOPRAZOLE 40 MG TABLET PO SCH (10:35)
[2024-05-01] MEDS: amLODIPine BESYLATE 10 MG TABLET (FP) PO SCH (10:35)
[2024-05-01] MEDS: PRENATAL VITAMINS W/ FOLIC ACID TABLET (FP) PO SCH (10:36)
[2024-05-01] MEDS: METHOCARBAMOL 500 MG TABLET PO PRN (10:40)
[2024-05-01 11:35] LABS: CHLORIDE 102 mmol/L (98-107); POTASSIUM 3.1 mmol/L (3.5-5.1); SODIUM 139 mmol/L (136-145)
[2024-05-01 11:42] LABS: HEMATOCRIT 36.6 % (35.4-49); HEMOGLOBIN 12.6 GM/dL (11.7-16.9); MCHC 34.5 g/dl (32.0-35.9); PLATELET COUNT 207 10^3/uL (134-434); RDW 14.2 % (11.9-15.9); WHITE BLOOD COUNT 6.2 K/mm3 (4.0-10.0)
[2024-05-01 11:44] LABS: CALCIUM 8.8 mg/dL (8.5-10.1)
[2024-05-01 11:45] LABS: ALBUMIN 3.2 g/dl (3.4-5.0); ANION GAP 6 mmol/L (4-13); BLOOD UREA NITROGEN 16.4 mg/dL (7-18); CO2 31 mmol/L (21-32); GLUCOSE,RANDOM 105 mg/dL (74-106)
[2024-05-01 11:48] LABS: CREATININE 1.2 mg/dL (0.55-1.3); SGOT/AST 19 U/L (15-37); SGPT/ALT 17 U/L (13-61)
[2024-05-01 11:49] LABS: BILIRUBIN,TOTAL 0.5 mg/dL (0.2-1); TOT PROT 6.8 g/dl (6.4-8.2)
[2024-05-01] MEDS: DOXYCYCLINE HYCLATE 100 MG TABLET PO SCH (11:50)
[2024-05-01 11:51] LABS: ALK PHOS 111 U/L (45-117)
[2024-05-01] MEDS: VITAMINS A AND D TOPICAL OINTMENT TP SCH (11:51)
[2024-05-01] MEDS: QUEtiapine FUMARATE 100 MG TABLET (FP) PO SCH (22:01)
[2024-05-02] MEDS: chlordiazePOXIDE HCL 25 MG CAPSULE PO SCH (06:11)
[2024-05-02] MEDS: POTASSIUM CHLORIDE ORAL LIQUID 20 MEQ/15 ML PO ONE ×2 (15:22→20:36)
[2024-05-02] MEDS: chlordiazePOXIDE HCL 25 MG CAPSULE PO PRN (17:40)
[2024-05-03] MEDS ORDERED: chlordiazePOXIDE HCL 10 MG CAPSULE PO PRN
[2024-05-03] MEDS: chlordiazePOXIDE HCL 10 MG CAPSULE PO SCH (05:55)
[2024-05-04] MEDS: chlordiazePOXIDE HCL 10 MG CAPSULE PO SCH (05:55)
[2024-05-04] MEDS: NALTREXONE HCL 50 MG TABLET PO SCH (12:46)
[2024-05-04] MEDS: LOSARTAN POTASSIUM 50 MG TABLET PO ONE ×2 (13:38→14:05)
[2024-05-04 18:27] LABS: HIV INTERPRETATION NEGATIVE (NEGATIVE)
[2024-05-04] MEDS: hydrOXYzine PAMOATE 25 MG CAPSULE (FP) PO PRN (22:46)
[2024-05-05] MEDS: chlordiazePOXIDE HCL 10 MG CAPSULE PO ONE (06:00)
[2024-05-05 09:18] VITALS: BP 147/96; PULSE 80; RESP 17; TEMP 97.8
[2024-05-05] MEDS: LOSARTAN POTASSIUM 50 MG TABLET PO SCH (09:35)
[2024-05-05] MEDS ORDERED: LOSARTAN POTASSIUM 25 MG TABLET PO SCH (10:00)
== END 2024-05-05 11:58 | disposition other institution (70) | DRG 774 ==
LOC: YASAS 15:07 → Y6N 22:30
PROVIDERS: ADMIT Allergy & Immunology; ATTEND Allergy & Immunology
PROC: HZ2ZZZZ Detoxification Services for Substance Abuse Treatment (ICD-10-PCS; principal; 2024-04-30)
DX: F10.230 Alcohol dependence with withdrawal, uncomplicated (principal); F14.20 Cocaine dependence, uncomplicated; F16.20 Hallucinogen dependence, uncomplicated; F12.20 Cannabis dependence, uncomplicated; F17.210 Nicotine dependence, cigarettes, uncomplicated; F19.282 Other psychoactive substance dependence with psychoactive substance-induced sleep disorder; F19.24 Other psychoactive substance dependence with psychoactive substance-induced mood disorder; F31.9 Bipolar disorder, unspecified; E87.6 Hypokalemia; E78.2 Mixed hyperlipidemia; I10 Essential (primary) hypertension; E11.69 Type 2 diabetes mellitus with other specified complication; Z79.84 Long term (current) use of oral hypoglycemic drugs; Z99.89 Dependence on other enabling machines and devices; Z88.6 Allergy status to analgesic agent
CPT/HCPCS: 36415; 71046-TC-FY; 80053; 80305; 80307; 82962; 84132; 85027; 86780; 87389; 87811; 93005; 93010

== ENCOUNTER 2024-05-05 12:10 | Inpatient (IN) | payer OTHER ==
[~2024-05-05 12:10] MED LIST: ACETAMINOPHEN 325 MG TABLET (FP) PO PRN; BENZOCAINE/MENTHOL (CHLORASEPTIC ) LOZENGE MM PRN; BENZONATATE 200 MG CAPSULE PO PRN; IBUPROFEN 400 MG TABLET (FP) PO PRN; IBUPROFEN 600 MG TABLET (FP) PO PRN; LOPERAMIDE HCL 2 MG CAPSULE PO PRN; MAG HYDROX/AL HYDROX/SIMETH 30 ML UNIT-DOSE CUP PO PRN; MAGNESIUM HYDROX 2400MG/30ML ORAL SUSPENSION 30 ML CUP PO PRN; NALOXONE (NARCAN) HCL 4 MG/0.1 ML SPRAY NS PRN; NICOTINE POLACRILEX 2 MG GUM BUC PRN; NICOTINE POLACRILEX 2 MG LOZENGE BC PRN; POLYETHYLENE GLYCOL (HEALTHYLAX) 3350 17 GM PACKET PO PRN; guaiFENesin 600 MG TABLET.ER (FP) PO PRN; hydrOXYzine PAMOATE 25 MG CAPSULE (FP) PO PRN
[2024-05-05] MEDS: DOXYCYCLINE HYCLATE 100 MG TABLET PO SCH (17:19)
[2024-05-05] MEDS: THIAMINE 100 MG TABLET PO SCH (21:14)
[2024-05-05] MEDS: MELATONIN 5 MG TABLETS PO SCH (21:14)
[2024-05-05] MEDS: ATORVASTATIN CA 40 MG TABLET (FP) PO SCH (21:15)
[2024-05-05] MEDS: QUEtiapine FUMARATE 100 MG TABLET (FP) PO SCH (21:15)
[2024-05-06 07:02] VITALS: TEMP 97.3
[2024-05-06] MEDS: PRENATAL VITAMINS W/ FOLIC ACID TABLET (FP) PO SCH (10:21)
[2024-05-06] MEDS: amLODIPine BESYLATE 10 MG TABLET (FP) PO SCH (10:22)
[2024-05-06] MEDS: LOSARTAN POTASSIUM 50 MG TABLET PO SCH (10:22)
[2024-05-06] MEDS: NALTREXONE HCL 50 MG TABLET PO SCH (10:22)
[2024-05-06] MEDS: FAMOTIDINE 20 MG TABLET PO SCH (12:06)
[2024-05-07 06:53] VITALS: BP 138/85; PULSE 62; RESP 18
== END 2024-05-07 16:02 | disposition left against medical advice (07) | DRG 770 ==
LOC: YASAS 12:10 → Y5N 12:12
PROVIDERS: ADMIT Psychiatry & Neurology Pain Medicine; ATTEND Psychiatry & Neurology Pain Medicine
PROC: HZ42ZZZ Group Counseling for Substance Abuse Treatment, Cognitive-Behavioral (ICD-10-PCS; principal; 2024-05-05)
DX: F10.20 Alcohol dependence, uncomplicated (principal); F14.20 Cocaine dependence, uncomplicated; F16.20 Hallucinogen dependence, uncomplicated; F12.20 Cannabis dependence, uncomplicated; F31.9 Bipolar disorder, unspecified; I10 Essential (primary) hypertension; E78.2 Mixed hyperlipidemia; E11.69 Type 2 diabetes mellitus with other specified complication; Z79.84 Long term (current) use of oral hypoglycemic drugs; K21.9 Gastro-esophageal reflux disease without esophagitis; M54.50 Low back pain, unspecified; G89.29 Other chronic pain; Z86.11 Personal history of tuberculosis; Z88.6 Allergy status to analgesic agent
CPT/HCPCS: 82962

== ENCOUNTER 2024-07-16 16:05 | Inpatient (IN) | payer OTHER ==
[2024-07-16 17:04] VITALS: BMI 30.2
[2024-07-16] MEDS ORDERED: POLYETHYLENE GLYCOL (HEALTHYLAX) 3350 17 GM PACKET PO PRN (17:23)
[2024-07-16] MEDS ORDERED: BENZONATATE 200 MG CAPSULE PO PRN (17:23)
[2024-07-16] MEDS ORDERED: BENZOCAINE/MENTHOL (CHLORASEPTIC ) LOZENGE MM PRN (17:23)
[2024-07-16] MEDS ORDERED: MAGNESIUM HYDROX 2400MG/30ML ORAL SUSPENSION 30 ML CUP PO PRN (17:23)
[2024-07-16] MEDS ORDERED: guaiFENesin 600 MG TABLET.ER (FP) PO PRN (17:23)
[2024-07-16] MEDS ORDERED: BISMUTH SUBSALICYLATE 524 MG/30 ML PO PRN (17:23)
[2024-07-16] MEDS ORDERED: IBUPROFEN 600 MG TABLET (FP) PO PRN (17:23)
[2024-07-16] MEDS ORDERED: NALOXONE (NARCAN) HCL 4 MG/0.1 ML SPRAY NS PRN (17:23)
[2024-07-16] MEDS ORDERED: LOPERAMIDE HCL 2 MG CAPSULE PO PRN (17:23)
[2024-07-16] MEDS ORDERED: IBUPROFEN 400 MG TABLET (FP) PO PRN (17:23)
[2024-07-16] MEDS ORDERED: ONDANSETRON *ODT* 4 MG TABLET SL PRN (17:23)
[2024-07-16] MEDS ORDERED: ACETAMINOPHEN 325 MG TABLET (FP) PO PRN (17:23)
[2024-07-16] MEDS ORDERED: DICYCLOMINE HCL 10 MG CAPSULE PO PRN (17:23)
[2024-07-16] MEDS ORDERED: MAG HYDROX/AL HYDROX/SIMETH 30 ML UNIT-DOSE CUP PO PRN (17:23)
[2024-07-16] MEDS: chlordiazePOXIDE HCL 25 MG CAPSULE PO PRN (19:04)
[2024-07-16] MEDS: MELATONIN 5 MG TABLETS PO SCH (22:13)
[2024-07-16] MEDS: THIAMINE 100 MG TABLET PO SCH (22:13)
[2024-07-16] MEDS: METHOCARBAMOL 500 MG TABLET PO PRN (22:14)
[2024-07-16] MEDS: chlordiazePOXIDE HCL 25 MG CAPSULE PO SCH (22:15)
[2024-07-17] MEDS: PRENATAL VITAMINS W/ FOLIC ACID TABLET (FP) PO SCH (10:41)
[2024-07-17 11:01] LABS: HEMATOCRIT 38.1 % (40.1-51.0); HEMOGLOBIN 12.5 g/dL (13.7-17.5); MCHC 32.8 g/dl (32.3-36.5); MEAN CELL VOLUME 90.9 fl (79.0-92.2); MEAN PLT VOLUME 11.8 fl (9.4-12.4); PLATELET COUNT 207 x10^3/uL (163-337)
[2024-07-17] MEDS: LIDOCAINE 5% TOPICAL PATCH TP SCH (11:10)
[2024-07-17 11:12] LABS: CHLORIDE 99 mmol/L (98-107); POTASSIUM 3.2 mmol/L (3.5-5.1); SODIUM 146 mmol/L (136-145)
[2024-07-17 11:38] LABS: ALBUMIN 3.4 g/dl (3.4-5.0); ANION GAP 20 mmol/L (4-13); BLOOD UREA NITROGEN 20.8 mg/dL (7-18); CALCIUM 9.1 mg/dL (8.5-10.1); CO2 28 mmol/L (21-32); GLUCOSE,RANDOM 138 mg/dL (74-106)
[2024-07-17 11:41] LABS: SGPT/ALT 34 U/L (13-61)
[2024-07-17 11:42] LABS: ALK PHOS 126 U/L (45-117); BILIRUBIN,TOTAL 0.3 mg/dL (0.2-1); CREATININE 1.2 mg/dL (0.55-1.3); SGOT/AST 38 U/L (15-37); TOT PROT 6.5 g/dl (6.4-8.2)
[2024-07-17] MEDS: VITAMINS A AND D TOPICAL OINTMENT TP SCH (12:00)
[2024-07-17] MEDS: POTASSIUM CHLORIDE TABS 20 MEQ TABLET.ER (FP) PO SCH (17:27)
[2024-07-17 18:04] LABS: HCV DIAGNOSTIC IN-HOUSE W/RFLX NON-REACTIVE (NONREACTIVE); HIV INTERPRETATION NEGATIVE (NEGATIVE)
[2024-07-17] MEDS: QUEtiapine FUMARATE 100 MG TABLET (FP) PO SCH (22:14)
[2024-07-17] MEDS: LIDOCAINE PATCH REMOVAL MC SCH (22:18)
[2024-07-18] MEDS: chlordiazePOXIDE HCL 25 MG CAPSULE PO SCH (06:00)
[2024-07-18] MEDS: INSULIN ASPART SLIDING SCALE (NOVOLOG) 1 VIAL SQ SCH (06:10)
[2024-07-18 10:00] LABS: ABSOLUTE IMMATURE GRANULOCYTES 0.01 x10^3/uL (0.0-0.031); BASOPHILS # 0.02 x10^3/uL (0.01-0.08); EOSINOPHIL % 1.6 % (0.8-7.0); EOSINOPHILS # 0.07 x10^3/uL (0.04-0.54); HEMATOCRIT 34.9 % (40.1-51.0); HEMOGLOBIN 11.6 g/dL (13.7-17.5); MCHC 33.2 g/dl (32.3-36.5); MEAN CELL VOLUME 89.9 fl (79.0-92.2); MEAN PLT VOLUME 11.6 fl (9.4-12.4); MONOCYTE # 0.23 x10^3/uL (0.30-0.82); MONOCYTE % 5.4 % (5.3-12.2); PLATELET COUNT 167 x10^3/uL (163-337); RDW 13.1 % (12.2-16.1)
[2024-07-18 10:02] LABS: POTASSIUM 3.1 mmol/L (3.5-5.1)
[2024-07-18 10:04] LABS: CALCIUM 9.3 mg/dL (8.5-10.1)
[2024-07-18 10:06] LABS: BLOOD UREA NITROGEN 17.9 mg/dL (7-18)
[2024-07-18 10:09] LABS: CREATININE 1.1 mg/dL (0.55-1.3)
[2024-07-18] MEDS: POTASSIUM CHLORIDE TABS 20 MEQ TABLET.ER (FP) PO SCH (22:15)
[2024-07-19] MEDS ORDERED: chlordiazePOXIDE HCL 10 MG CAPSULE PO PRN
[2024-07-19] MEDS: chlordiazePOXIDE HCL 10 MG CAPSULE PO SCH (05:36)
[2024-07-19 09:20] LABS: POTASSIUM 3.3 mmol/L (3.5-5.1)
[2024-07-19 09:33] LABS: BLOOD UREA NITROGEN 15.6 mg/dL (7-18); CALCIUM 9.3 mg/dL (8.5-10.1)
[2024-07-19] MEDS: hydrOXYzine PAMOATE 25 MG CAPSULE (FP) PO PRN (17:24)
[2024-07-20] MEDS: chlordiazePOXIDE HCL 10 MG CAPSULE PO SCH (05:44)
[2024-07-20] MEDS ORDERED: PATIENT'S OWN MEDICATION (NON-FORMULARY) (Losartan/Hydrochlorothiazide [Losartan-Hctz 100- PO SCH (10:15)
[2024-07-20] MEDS: HYDROCHLOROTHIAZIDE 25 MG TABLET (FP) PO SCH (10:56)
[2024-07-20] MEDS: amLODIPine BESYLATE 10 MG TABLET (FP) PO SCH (10:56)
[2024-07-20] MEDS: LOSARTAN POTASSIUM 50 MG TABLET PO SCH (10:57)
[2024-07-21] MEDS: chlordiazePOXIDE HCL 10 MG CAPSULE PO ONE (06:00)
[2024-07-21 08:34] VITALS: BP 139/83; PULSE 68; RESP 18; TEMP 97.6
== END 2024-07-21 09:25 | disposition home or self-care (01) | DRG 774 ==
LOC: YASAS 16:05 → Y6N 18:08
PROVIDERS: ADMIT Allergy & Immunology; ATTEND Allergy & Immunology
PROC: HZ2ZZZZ Detoxification Services for Substance Abuse Treatment (ICD-10-PCS; principal; 2024-07-16)
DX: F10.230 Alcohol dependence with withdrawal, uncomplicated (principal); F14.10 Cocaine abuse, uncomplicated; F12.20 Cannabis dependence, uncomplicated; F19.282 Other psychoactive substance dependence with psychoactive substance-induced sleep disorder; F19.24 Other psychoactive substance dependence with psychoactive substance-induced mood disorder; F31.9 Bipolar disorder, unspecified; E87.6 Hypokalemia; E78.2 Mixed hyperlipidemia; E11.9 Type 2 diabetes mellitus without complications; Z79.84 Long term (current) use of oral hypoglycemic drugs; G47.00 Insomnia, unspecified; I10 Essential (primary) hypertension; J44.9 Chronic obstructive pulmonary disease, unspecified; K21.9 Gastro-esophageal reflux disease without esophagitis; Z87.891 Personal history of nicotine dependence; Z88.6 Allergy status to analgesic agent
CPT/HCPCS: 0241U-QW; 36415; 71046-TC-FY; 80048; 80053; 80305; 80307; 82962; 85025; 85027; 86780; 86803; 87389; 93005; 93010